=== PATIENT | male | born 1935 | race Caucasian/White ===

== ENCOUNTER → 2017-11-29 16:01 | Outpatient (CLI) | payer MEDICARE, SELFPAY ==
--- NOTE | 2017-11-29 16:03 | DI.RAD.S_ITS ---
PROCEDURE: XR THORACIC SPINE 3V INDICATIONS: BACK PAIN TECHNIQUE: 3 views of the thoracic spine were acquired. COMPARISON: None. FINDINGS: Bones: No fractures or dislocations. No suspicious bony lesions. Levocurvature centered at T5. Diffuse endplate spurring and sclerosis. No definite disc space narrowing. Soft tissues: No paravertebral stripe thickening. 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 Dictated by: Chato Nowak M.D. on 11/29/2017 at 16:30 Approved by: Chato Nowak M.D. on 11/29/2017 at 16:34
== END ==
PROVIDERS: Family Provider Internal Medicine; PCP Internal Medicine; Visit Provider Internal Medicine
DX: M51.84 Other intervertebral disc disorders, thoracic region (principal); M54.9 Dorsalgia, unspecified; M41.9 Scoliosis, unspecified
CPT/HCPCS: 72072

== ENCOUNTER 2018-01-24 13:07 | Outpatient (RCR) | payer MEDICARE, SELFPAY | END 2018-03-25 09:48 | LOC: SP 13:07 | PROVIDERS: Family Provider Internal Medicine; PCP Internal Medicine; Visit Provider Otolaryngology | DX: R49.0 Dysphonia (principal) | CPT/HCPCS: 92524 ==

== ENCOUNTER → 2018-08-25 08:53 | Outpatient (CLI) | payer MEDICARE, SELFPAY ==
[2018-08-25 09:48] LABS: Aspartate Aminotransferase 39 IU/L (17-59); BUN Creatinine Ratio 17.3 (6-22); Blood Urea Nitrogen 19 mg/dL (9-20); Calcium 8.8 mg/dL (8.4-10.2); Carbon Dioxide 28 mmol/L (22-32); Chloride 103 mmol/L (98-107); Cholesterol 146 mg/dL (140-199); Estimated Glomerular Filt Rate > 60.0 mL/min (>60); Glucose 90 mg/dL (80-110); HDL Cholesterol 46 mg/dL (40-60); HEMOLYSIS < 15 (0-50); LDL Cholesterol Calculated 87 mg/dL (<100); Potassium 5.2 mmol/L (3.4-5.1); Sodium 138 mmol/L (137-145); Triglycerides 67 mg/dL (35-150)
[2018-08-25 10:17] LABS: Prostate Specific Antigen 2.52 ng/mL (0.10-4.00)
== END ==
PROVIDERS: Family Provider Internal Medicine; PCP Internal Medicine; Visit Provider Internal Medicine
DX: I10 Essential (primary) hypertension (principal); E78.2 Mixed hyperlipidemia; N40.0 Benign prostatic hyperplasia without lower urinary tract symptoms
CPT/HCPCS: 36415; 80048; 80061; 84153; 84450

== ENCOUNTER → 2018-09-01 08:56 | Outpatient (CLI) | payer MEDICARE, SELFPAY ==
[2018-09-01 11:52] LABS: Thyroid Stimulating Hormone 3.57 uIU/mL (0.47-4.68)
== END ==
PROVIDERS: PCP Internal Medicine; Visit Provider Internal Medicine
DX: E03.9 Hypothyroidism, unspecified (principal)
CPT/HCPCS: 36415; 84443

== ENCOUNTER → 2019-10-11 09:07 | Outpatient (CLI) | payer MEDICARE, SELFPAY ==
[2019-10-11 11:03] LABS: Aspartate Aminotransferase 35 IU/L (17-59); BUN Creatinine Ratio 19.6 (6-22); Blood Urea Nitrogen 21 mg/dL (9-20); Calcium 9.2 mg/dL (8.4-10.2); Carbon Dioxide 27 mmol/L (22-32); Chloride 105 mmol/L (98-107); Cholesterol 146 mg/dL (140-199); Estimated Glomerular Filt Rate > 60.0 mL/min (>60); Glucose 95 mg/dL (80-110); HDL Cholesterol 49 mg/dL (40-60); LDL Cholesterol Calculated 84 mg/dL (<100); Potassium 4.8 mmol/L (3.4-5.1); Sodium 138 mmol/L (137-145); Triglycerides 66 mg/dL (35-150)
[2019-10-11 11:18] LABS: HEMOLYSIS 75 (0-50)
[2019-10-11 11:21] LABS: TSH w/ Reflex to FT4 2.43 uIU/mL (0.47-4.68)
[2019-10-12 07:09] LABS: PSA Free % 32.1 % (.); PSA, Total 1.9 ng/mL (0.0-4.0)
== END ==
PROVIDERS: PCP Internal Medicine; Referring Provider Internal Medicine; Visit Provider Internal Medicine
DX: I10 Essential (primary) hypertension (principal); E78.00 Pure hypercholesterolemia, unspecified; N40.0 Benign prostatic hyperplasia without lower urinary tract symptoms; R42 Dizziness and giddiness; R60.9 Edema, unspecified; E03.9 Hypothyroidism, unspecified
CPT/HCPCS: 36415; 80048; 80061; 84153; 84154; 84443; 84450

== ENCOUNTER → 2019-12-28 19:38 | Outpatient (ROUT) | payer MEDICARE, SELFPAY | PROVIDERS: PCP Internal Medicine; Visit Provider Internal Medicine | DX: M54.9 Dorsalgia, unspecified (principal) | CPT/HCPCS: 87086 ==

== ENCOUNTER → 2020-01-08 13:29 | Outpatient (CLI) | payer MEDICARE, SELFPAY ==
[2020-01-10 17:11] LABS: COVID19 Sendout Not Detected (Not Detect)
== END ==
PROVIDERS: PCP Internal Medicine; Visit Provider Nurse Practitioner
DX: Z11.59 Encounter for screening for other viral diseases (principal)
CPT/HCPCS: 87635

== ENCOUNTER → 2020-06-12 14:33 | Outpatient (ROUT) | payer MEDICARE, SELFPAY ==
[2020-06-12 14:52] LABS: Eosinophils Absolute Auto 200 /uL (0-450); Red Cell Distribution Width 13.7 % (11.6-14.8)
[2020-06-12 14:55] LABS: Alanine Aminotransferase 20 IU/L (<50); Albumin 3.7 g/dL (3.5-5.0); Albumin Globulin Ratio 1.3 (1.0-2.8); Alkaline Phosphatase 56 U/L (38-126); Aspartate Aminotransferase 31 IU/L (17-59); BUN Creatinine Ratio 18.8 (6-22); Bilirubin Total 0.4 mg/dL (0.2-1.3); Blood Urea Nitrogen 21 mg/dL (9-20); Carbon Dioxide 29 mmol/L (22-32); Chloride 105 mmol/L (98-107); Estimated Glomerular Filt Rate > 60.0 mL/min (>60); Globulin 2.8 g/dL (1.7-4.1); Glucose 93 mg/dL (80-110); HEMOLYSIS < 15 (0-50); Potassium 4.5 mmol/L (3.4-5.1); Sodium 136 mmol/L (137-145); Total Protein 6.5 g/dL (6.3-8.2)
[2020-06-12 15:00] LABS: Add Manual Diff / Slide Review NO; Basophils Absolute Auto 0 /uL (0-100); Hematocrit 44.4 % (41-53); Hemoglobin 14.9 g/dL (13.5-17.5); Lymphocytes Absolute Auto 600 /uL (1100-4500); Lymphocytes Percent Auto 13.2 % (25-40); Mean Corpuscular HGB Conc 33.6 % (30-36); Mean Corpuscular Hemoglobin 33.2 PG (26-34); Mean Corpuscular Volume 98.7 fL (80-100); Monocytes Absolute Auto 500 /uL (0-900); Monocytes Percent Auto 11.5 % (3-14); Neutrophils Absolute Auto 3300 /uL (1500-7000); Neutrophils Percent Auto 69.3 % (50-75); Platelet Count 191 X10^3/uL (150-400); White Blood Cell Count 4.8 X10^3/uL (4.5-11.0)
[2020-06-12 15:25] LABS: TSH w/ Reflex to FT4 2.36 uIU/mL (0.47-4.68)
== END ==
PROVIDERS: PCP Internal Medicine; Visit Provider Internal Medicine
DX: R63.4 Abnormal weight loss (principal)
CPT/HCPCS: 80053; 84443; 85025

== ENCOUNTER → 2020-06-13 13:34 | Outpatient (CLI) | payer MEDICARE, SELFPAY ==
--- NOTE | 2020-06-13 | DI.CT.S_ITS ---
PROCEDURE: CT HEAD/BRAIN WO CON INDICATIONS: Balance issues TECHNIQUE: Noncontrast 4.5 mm thick angled axial sections acquired from the foramen magnum to the vertex, with coronal and sagittal reformats. For radiation dose reduction, the following was used: automated exposure control, adjustment of mA and/or kV according to patient size. COMPARISON: None. FINDINGS: Image quality: Excellent. CSF spaces: Basal cisterns are patent. No extra-axial fluid collections. The ventricles are symmetric in size and shape. Brain: No intracranial bleeds or masses. There is cerebral volume loss for age, with resultant ventricular and sulcal prominence. There are periventricular and deep white matter chronic small vessel ischemic changes. There is intracranial internal carotid artery atherosclerosis. Skull and face: Calvarium and visualized facial bones appear intact, without suspicious lesions. Sinuses: Visualized sinuses and mastoids are clear. IMPRESSION: No acute intracranial finding. Dictated by: Loki Russ M.D. on 06/13/2020 at 13:56 Approved by: Loki Russ M.D. on 06/13/2020 at 13:59
== END ==
PROVIDERS: PCP Internal Medicine; Referring Provider Internal Medicine; Visit Provider Internal Medicine
DX: R26.89 Other abnormalities of gait and mobility (principal); F41.8 Other specified anxiety disorders
CPT/HCPCS: 70450

== ENCOUNTER → 2020-07-03 11:26 | Outpatient (CLI) | payer MEDICARE, SELFPAY ==
[2020-07-03] MEDS: COVID-19 VACC, Ad26(JANSSEN)/PF 0.5 ML IM (11:51)
== END ==
PROVIDERS: PCP Internal Medicine; Visit Provider Internal Medicine
DX: Z23 Encounter for immunization (principal)
CPT/HCPCS: 0031A; 91303

== ENCOUNTER 2020-09-27 11:15 | Outpatient (RCR) | payer MEDICARE, SELFPAY ==
--- NOTE | 2020-09-26 12:23 | PT.OIE ---
Current Diagnoses Impacted cerumen, bilateral (09/26/20) Benign paroxysmal vertigo, unspecified ear (09/26/20) Unspecified hearing loss, bilateral (09/26/20) Dysphonia (09/26/20) Visit Care Team Role Provider Type Julio Scott MD Primary Care Provider Physician Specialty: Internal Medicine Address: [address] [place] [id number] Email: [email or web address] Azael Vail MD Attending Provider Physician Referring Provider Specialty: Ear, Nose, Throat Address: [address] [place] [address], [facility] Email: [email or web address] Physical Therapy Initial Evaluation PT-OP-A Visit Information Start: 09/26/20 12:05 Freq: Status: Active Protocol: Document 09/26/20 10:30 DCW (Rec: 09/26/20 12:23 DCW [id number]) Out-Patient Physical Therapy Visit Information Visit Information Visit Type Initial Evaluation Visit Start Time 10:30 Visit Stop Time 11:10 Total Visit Minutes 40 Visit Number 1 Number of FOLDING RULES PRINTING MACHINE OPERATOR Visits 0 Evaluation Information Evaluation Date 09/26/20 PT-OP-B Current Condition Start: 09/26/20 12:05 Freq: Status: Active Protocol: Document 09/26/20 10:30 DCW (Rec: 09/26/20 12:23 DCW [id number]) Current Condition History of Current Condition Onset Date Two months Current Complaints Position-dependent vertigo History of Current Condition Pt is an 84 year old male complaining of a two month history of motion-induced vertigo. Pt reports episodes last a few seconds. Symptoms are provoked by positional changes, especially turning over in bed. Pt was previously assessed by an Mill Attendant at [facility], however he testing was negative at that time. Pt was told to return if his symptoms did, but then he was unable to get back in for an appointment until mid-October , so he requested a new referral to this clinic. Pt denies recent hearing changes, tinnitus, diplopia, dysarthria, discoordination, or decreased mentation/ consciousness. Pt reports symptoms are waxing/waning in nature. Pt denies hx of diabetes, arrhythmia, head trauma, seizure, migraines, back/neck problems, CVA, anxiety/panic disorders, depression, or excessive smoking or drinking. Treatment Goals Patient/Caregiver Goals Eliminate dizziness PT-OP-C Subjective Start: 09/26/20 12:05 Freq: Status: Active Protocol: Document 09/26/20 10:30 DCW (Rec: 09/26/20 12:23 [id number] OP-PT Subjective Patient Comments Patient Comments After coming and going for the last few months, it has been pretty consistent for the last week. PT-OP-O Vestibular Start: 09/26/20 12:05 Freq: Status: Active Protocol: Document 09/26/20 10:30 DCW (Rec: 09/26/20 12:23 DC [id number]) Vestibular Assessment Screening Tests Vestibular Artery Screen Negative Auditory Tests Martinez Test Within normal limits Rinne Test Negative Air Conduction Results Equal Visual Testing Smooth Pursuits Horizontal WNL Smooth Pursuits Vertical WNL Saccades Horizontal WNL Saccades Vertical WNL Gaze Evoked Nystagmus With Fixation Negative Gaze Evoked Nystagmus Without Fixation Negative Heave Test Positive Bilateral Thrust Head Positive Bilateral Positional Testing Baltazar-Hallpike Negative Left,Negative Right Rolling Test Negative Left,Negative Right Supine to Sit Negative Sit to Supine Negative PT-OP-T Assessment and Plan Start: 09/26/20 12:05 Freq: Status: Active Protocol: Document 09/26/20 10:30 DCW (Rec: 09/26/20 12:23 DC [id number]) Physical Therapy Assessment Rehab Potential Rehabilitation Potential Good Evaluation Complexity Number of Personal Factors/Comorbidities 0 Number of Body Systems Impaired 1-2 Clinical Presentation at Evaluation Stable Impairments Impairments Balance,Vestibular Goals One Impairment Pt experiences vertigo with positional changes Sewing Machine Tester Goal (LTG) Pt to perform all bed mobility with no symptoms of vertigo for one week. LTG Duration 10/26/20 Assessment Summary Assessment Pt's vestibular testing entirely negative today, as it was when he was tested at the audiologists previously. Pt's subjective complaints, however, are very strongly suggestive of BPPV, which can be waxing/waning in nature. Pt should benefit from further positional testing at a later time to determine if pt does have active BPPV and, if so, which canal it is located in for treatment, and then CRM as indicated. Pt was educated on BPPV, expectations for treatment, and the possibly of recurrence (BPPV has a ~50% recurrence rate in the five years following treatment) even after successful treatment. Physical Therapy Plan Frequency and Duration Frequency of Treatment 2x/Week Duration of Treatment 6 weeks Plan of Care Start Date 09/26/20 Plan of Care End Date 11/07/20 Therapeutic Interventions Therapeutic Interventions Balance Training,Canalithic Repositioning,Manual Therapy, Neuromuscular Re-education, Vestibular Rehabilitation Next Visit Focus/Plan Next Note Type Treatment Note Next Visit Plan Positional testing, CRM as indicated
--- NOTE | 2020-09-26 12:23 | PT.OPPOC ---
Physical, Occupational & Speech Therapy At [facility] Current Diagnoses Impacted cerumen, bilateral (09/26/20) Benign paroxysmal vertigo, unspecified ear (09/26/20) Unspecified hearing loss, bilateral (09/26/20) Dysphonia (09/26/20) Visit Care Team Role Provider Type Julio Scott MD Primary Care Provider Physician Specialty: Internal Medicine Address: [address] [place] [address], [id number] Email: [email or web address] Azael Vail MD Attending Provider Physician Referring Provider Specialty: Ear, Nose, Throat Address: [address] [place] [address], [id number] Email: [email or web address] Plan Of Care PT-OP-T Assessment and Plan Start: 09/26/20 12:05 Freq: Status: Active Protocol: Document 09/26/20 10:30 DCW (Rec: 09/26/20 12:23 DCW [id number]) Physical Therapy Assessment Rehab Potential Rehabilitation Potential Good Evaluation Complexity Number of Personal Factors/Comorbidities 0 Number of Body Systems Impaired 1-2 Clinical Presentation at Evaluation Stable Impairments Impairments Balance,Vestibular Goals One Impairment Pt experiences vertigo with positional changes Prison Goal (LTG) Pt to perform all bed mobility with no symptoms of vertigo for one week. LTG Duration 10/26/20 Assessment Summary Assessment Pt's vestibular testing entirely negative today, as it was when he was tested at the audiologists previously. Pt's subjective complaints, however, are very strongly suggestive of BPPV, which can be waxing/waning in nature. Pt should benefit from further positional testing at a later time to determine if pt does have active BPPV and, if so, which canal it is located in for treatment, and then CRM as indicated. Pt was educated on BPPV, expectations for treatment, and the possibly of recurrence (BPPV has a ~50% recurrence rate in the five years following treatment) even after successful treatment. Physical Therapy Plan Frequency and Duration Frequency of Treatment 2x/Week Duration of Treatment 6 weeks Plan of Care Start Date 09/26/20 Plan of Care End Date 11/07/20 Therapeutic Interventions Therapeutic Interventions Balance Training,Canalithic Repositioning,Manual Therapy, Neuromuscular Re-education, Vestibular Rehabilitation Next Visit Focus/Plan Next Note Type Treatment Note Next Visit Plan Positional testing, CRM as indicated Plan of Care Dates Plan of Care Start Date 09/26/20 Plan of Care End Date 11/07/20 Electronically Signed by: Jorgito Suárez, PT 09/26/20 [id number] Please Sign and Return: I have reviewed this Plan of Care and certify that the skilled therapy services above are required to meet the patient?s needs. Physician Signature Date Printed Name and Credentials Clinical Instructor Signature Printed Name and Credentials
--- NOTE | 2020-09-27 11:53 | PT.OTN ---
Current Diagnoses Impacted cerumen, bilateral (09/27/20) Benign paroxysmal vertigo, unspecified ear (09/27/20) Unspecified hearing loss, bilateral (09/27/20) Dysphonia (09/27/20) Physical Therapy Treatment Note PT-OP-A Visit Information Start: 09/26/20 12:05 Freq: Status: Active Protocol: Document 09/27/20 11:15 DCW (Rec: 09/27/20 11:47 DCW [id number]) Out-Patient Physical Therapy Visit Information Visit Information Visit Type Treatment Note Visit Start Time 11:15 Visit Stop Time 11:45 Total Visit Minutes 30 Visit Number 2 Number of QUALITY CONTROL ASSISTANT Visits 0 Evaluation Information Evaluation Date 09/26/20 PT-OP-B Current Condition Start: 09/26/20 12:05 Freq: Status: Active Protocol: Document 09/26/20 10:30 DCW (Rec: 09/26/20 12:23 DCW [id number]) Current Condition History of Current Condition Onset Date Two months Current Complaints Position-dependent vertigo History of Current Condition Pt is an 84 year old male complaining of a two month history of motion-induced vertigo. Pt reports episodes last a few seconds. Symptoms are provoked by positional changes, especially turning over in bed. Pt was previously assessed by an Project Control Manager at [facility], however he testing was negative at that time. Pt was told to return if his symptoms did, but then he was unable to get back in for an appointment until mid-October , so he requested a new referral to this clinic. Pt denies recent hearing changes, tinnitus, diplopia, dysarthria, discoordination, or decreased mentation/ consciousness. Pt reports symptoms are waxing/waning in nature. Pt denies hx of diabetes, arrhythmia, head trauma, seizure, migraines, back/neck problems, CVA, anxiety/panic disorders, depression, or excessive smoking or drinking. Treatment Goals Patient/Caregiver Goals Eliminate dizziness PT-OP-C Subjective Start: 09/26/20 12:05 Freq: Status: Active Protocol: Document 09/27/20 11:15 DCW (Rec: 09/27/20 11:47 DCW [id number]) OP-PT Subjective Patient Comments Patient Comments I looked up at some birds as I was walking in today and got a little dizzy, so I might be able to show you something today. PT-OP-O Vestibular Start: 09/26/20 12:05 Freq: Status: Active Protocol: Document 09/27/20 11:15 DCW (Rec: 09/27/20 11:47 DCW [id number]) Vestibular Assessment Positional Testing Baltazar-Hallpike Positive Left,Negative Right, Upbeating,< 60 Seconds PT-OP-Q Treatments Start: 09/26/20 12:05 Freq: Status: Active Protocol: Document 09/27/20 11:15 DCW (Rec: 09/27/20 11:47 DCW [id number]) Manual Therapy Treatment Other Other Manual Treatments Positional testing Canalithic Repositioning BPPV Treatment Kel Affected Canal(s) L Posterior Reps x2 PT-OP-T Assessment and Plan Start: 09/26/20 12:05 Freq: Status: Active Protocol: Document 09/27/20 11:15 DCW (Rec: 09/27/20 11:53 DCW [id number]) Physical Therapy Assessment Impairments Impairments Balance,Vestibular Goals One Impairment Pt experiences vertigo with positional changes Staff Mine Warfare Officer Goal (LTG) Pt to perform all bed mobility with no symptoms of vertigo for one week. LTG Duration 10/26/20 Assessment Summary Assessment During left [place]-Hallpike test, pt complained of vertigo and demonstrated up-beating, torsional nystagmus lasting approximately 15 seconds, consistent with diagnosis of left-sided posterior canal BPPV, canalithiasis-type. Pt was treated with a left-sided modified Kel maneuver. Pt complained of symptoms in the first and third position, which is normally indicative of a successful treatment. Follow-up positional testing was still positive, although significantly reduced. A second modified maneuver was performed. Pt to call for follow-up appointment if symptoms continue. Physical Therapy Plan Frequency and Duration Frequency of Treatment 2x/Week Duration of Treatment 6 weeks Plan of Care Start Date 09/26/20 Plan of Care End Date 11/07/20 Therapeutic Interventions Therapeutic Interventions Balance Training,Canalithic Repositioning,Manual Therapy, Neuromuscular Re-education, Vestibular Rehabilitation Next Visit Focus/Plan Next Note Type Treatment Note Next Visit Plan Positional testing, CRM as indicated
--- NOTE | 2020-11-28 14:03 | PT.OPDS ---
Current Diagnoses Impacted cerumen, bilateral (09/27/20) Benign paroxysmal vertigo, unspecified ear (09/27/20) Unspecified hearing loss, bilateral (09/27/20) Dysphonia (09/27/20) Visit Care Team Role Provider Type Julio Scott MD Primary Care Provider Physician Specialty: Internal Medicine Address: [address] [place] [address] Email: [email or web address] Azael Vail MD Attending Provider Physician Referring Provider Specialty: Ear, Nose, Throat Address: [address] [place] [address], [facility] Email: [email or web address] Visit Number Visit Number 2 Discharge Summary PT-OP-B Current Condition Start: 09/26/20 12:05 Freq: Status: Active Protocol: Document 09/26/20 10:30 DCW (Rec: 09/26/20 12:23 DCW [id number]) Current Condition History of Current Condition Onset Date Two months Current Complaints Position-dependent vertigo History of Current Condition Pt is an 84 year old male complaining of a two month history of motion-induced vertigo. Pt reports episodes last a few seconds. Symptoms are provoked by positional changes, especially turning over in bed. Pt was previously assessed by an Aviation Technician at [facility], however he testing was negative at that time. Pt was told to return if his symptoms did, but then he was unable to get back in for an appointment until mid-October , so he requested a new referral to this clinic. Pt denies recent hearing changes, tinnitus, diplopia, dysarthria, discoordination, or decreased mentation/ consciousness. Pt reports symptoms are waxing/waning in nature. Pt denies hx of diabetes, arrhythmia, head trauma, seizure, migraines, back/neck problems, CVA, anxiety/panic disorders, depression, or excessive smoking or drinking. Treatment Goals Patient/Caregiver Goals Eliminate dizziness PT-OP-C Subjective Start: 09/26/20 12:05 Freq: Status: Active Protocol: Document 09/27/20 11:15 DCW (Rec: 09/27/20 11:47 DCW [id number]) OP-PT Subjective Patient Comments Patient Comments I looked up at some birds as I was walking in today and got a little dizzy, so I might be able to show you something today. PT-OP-O Vestibular Start: 09/26/20 12:05 Freq: Status: Active Protocol: Document 09/27/20 11:15 DCW (Rec: 09/27/20 11:47 DCW [id number]) Vestibular Assessment Positional Testing Baltazar-Hallpike Positive Left,Negative Right, Upbeating,< 60 Seconds PT-OP-T Assessment and Plan Start: 09/26/20 12:05 Freq: Status: Active Protocol: Document 11/28/20 14:03 DCW (Rec: 11/28/20 14:03 DCW [id number]) Physical Therapy Assessment Assessment Summary Assessment Pt instructed to call for follow-up appointment if symptoms returned. Pt has now not been seen in more than two months, will be discharged from skilled therapy at this time. Pt will require a new referral in order to return to therapy. Physical Therapy Plan Discharge Physical Therapy Discharge Reasons No Longer Attending PT Next Visit Focus/Plan Next Note Type Discharge Summary
== END 2020-12-02 09:42 | disposition home or self-care (01) ==
LOC: PHYS 11:15
PROVIDERS: PCP Internal Medicine; Referring Provider Otolaryngology; Visit Provider Otolaryngology
DX: H61.23 Impacted cerumen, bilateral (principal); H81.10 Benign paroxysmal vertigo, unspecified ear; H91.93 Unspecified hearing loss, bilateral; R49.0 Dysphonia
CPT/HCPCS: 95992; 97140; 97161

== ENCOUNTER 2021-02-11 10:00 | Emergency (ER) | payer MEDICARE, SELFPAY ==
[2021-02-11 10:08] VITALS: BP 157/83; PULSE 59; RESP 14; TEMP 36.5; O2SAT 96; BMI 27.1
[2021-02-11 10:19] VITALS: PULSE 64
--- NOTE | 2021-02-11 10:30 | ED.EXTPRO ---
HPI - Extremity Problem General Chief complaint: Extremity Problem,Nontraumatic Stated complaint: Pain in right Leg Time Seen by Provider: 02/11/21 10:19 Source: patient Mode of arrival: Ambulatory Limitations: no limitations History of Present Illness HPI Narrative: Patient is an 85-year-old male here for evaluation of right leg pain and swelling. He is unsure exactly how long the symptoms have been going on but it has been the past couple days. He did not know that his leg was swollen until today. No chest pain. No shortness of breath. Has never had a blood clot in the past. No fevers. He has had some vein stripping on his right leg in the past. Not on anticoagulation. No skin changes. Has not tried anything for symptoms prior to arrival. Related Data Home Medications Medication Instructions Recorded Confirmed ASPIRIN (Aspirin Low Dose) 81 mg PO Q DAY #0 04/24/07 LISINOPRIL (Zestril / Prinivil) 0 PO Q DAY #0 04/24/07 Previous Rx's Medication Instructions Recorded doxycycline hyclate 100 mg capsule 100 mg PO Q12H #20 cap 01/25/17 Allergies Allergy/AdvReac Type Severity Reaction Status Date / Time prednisone [PREDNISONE] Allergy Intermediate BODY ITCH Verified 02/11/21 10:14 Review of Systems Constitutional Constitutional: Denies fever(s) Cardiovascular Cardiovascular: Denies chest pain and Denies dyspnea Respiratory Respiratory: Denies dyspnea Gastrointestinal Gastrointestinal: Denies abdominal pain Musculoskeletal Musculoskeletal: Reports system reviewed and no additional complaints, except as documented and Reports as per HPI Integumentary/Breasts Skin/Breast: Reports system reviewed and no additional complaints, except as documented and Reports as per HPI Neurologic Neurologic: Reports system reviewed and no additional complaints, except as documented Hematologic/Lymphatic On Anticoagulants: No Patient History Medical History Atypical chest pain Diffuse cellulitis of face Social History Smoking Status: Unknown if ever smoked Smoking Status: Unknown if ever smoked alcohol intake frequency: holidays/special occasions only Substance Use Type: does not use Exam Initial Vital Signs Initial Vital Signs: Vital Signs Temperature 97.7 F 02/11/21 10:08 Pulse Rate 59 L 02/11/21 10:08 Respiratory Rate 14 02/11/21 10:08 Blood Pressure 157/83 H 02/11/21 10:08 Pulse Oximetry 96 02/11/21 10:08 Const General: cooperative, healthy appearing and comfortable [facility] Head: normal to inspection and normocephalic Resp Effort & Inspection: normal respiratory effort Cardio Rate: regular rate Pulses: dorsalis pedis present on the right Skin General: no rashes or lesions noted Neuro General: patient awake Sensory Exam: no sensory deficits noted Extrem Other: Right lower extremity is swollen compared to left lower extremity. Right ankle swollen but does have full range of motion. Right knee is unremarkable. Psych Appearance: grossly normal and well kempt Course Orders Ordered: ED Orders 02/11/21 10:31 [facility] venous low extrem rt Stat Basic Metabolic Panel Stat Complete Blood Count AUTO DIFF Stat NT-proBNP (BNP-Adult 18+) Stat Vital Signs Vital signs: Vital Signs - 8 hr 02/11/21 10:08 02/11/21 10:19 Temperature 97.7 F Pulse Rate 59 L Pulse Rate [Right Dorsalis Pedis] 64 Respiratory Rate 14 Blood Pressure 157/83 H Pulse Oximetry 96 MDM - Extremity (Nontraumatic) Lab Data Result diagrams: 02/11/21 10:31 02/11/21 10:31 Labs: Lab Results 02/11/21 02/11/21 Range/Units 10:31 10:31 WBC 6.0 (4.5-11.0) X10^3/uL RBC 4.53 (4.5-5.9) X10^6/uL Hgb 14.7 (13.5-17.5) g/dL Hct 44.1 (41-53) % MCV 97.4 (80-100) fL MCH 32.6 (26-34) PG MCHC 33.4 (30-36) % RDW 13.9 (11.6-14.8) % Plt Count 130 L (150-400) X10^3/uL Neut % (Auto) 69.2 (50-75) % Lymph % (Auto) 12.3 L (25-40) % [place] % (Auto) 13.0 (3-14) % Eos % (Auto) 4.7 H (2-4) % Baso % (Auto) 0.8 (0-2) % Neut # (Auto) 4200 (3987-9200) /uL Lymph # (Auto) 700 L (0140-9935) /uL [place] # (Auto) 800 (0-900) /uL Eos # (Auto) 300 (0-450) /uL Baso # (Auto) 0 (0-100) /uL Sodium 136 L (137-145) mmol/L Potassium 4.9 (3.4-5.1) mmol/L Chloride 105 (98-107) mmol/L Carbon Dioxide 28 (22-32) mmol/L BUN 25 H (9-20) mg/dL Creatinine 1.21 (0.66-1.25) mg/dL Estimated GFR 57.3 L (>60) mL/min BUN/Creatinine Ratio 20.7 (6-22) Glucose 97 (80-110) mg/dL Calcium 8.7 (8.4-10.2) mg/dL NT-Pro-B Natriuret Pep 100 (<450) pg/mL Imaging Data US - DVT: Radiologist's Impression: [address] [address] Ultrasound Report Signed Patient: Parveen Saleh MR#: [id number] : 1935 Acct:[id number] Age/Sex: 85 / M Date of Service: 02/11/21 Loc: ED Accession Number: [id number] ?? Procedure: US periph venous low extrem rt Ordering Provider: Aly Randhawa D.O. PROCEDURE:? US PERIPH VENOUS LOW EXTREM RT ? INDICATIONS:? RULE OUT DEEP VEIN THROMBOSIS ? TECHNIQUE:? Real-time imaging, as well as color and pulse Doppler interrogation, were performed of the lower extremity deep veins from the inguinal ligament to the popliteal fossa.? ? COMPARISON:? [facility] Ultrasound, US, US VENOUS LEG DPLX UNI RT, 02/06/2016, 10:56. ? FINDINGS:? The common femoral, femoral and popliteal veins are normally compressible, and free of intraluminal thrombus.? Color and pulse Doppler demonstrate normal phasic intraluminal flow.? There is normal augmentation response to distal compression maneuver. ? ? Note is made of calf soft tissue edema. ? ? ? IMPRESSION:? ? Negative for deep venous thrombosis. ? ? Dictated by: Myron Hanna M.D. on 02/11/2021 at 10:08 ? ? Approved by: Myron Hanna M.D. on 02/11/2021 at 10:08?? MDM Narrative Medical decision making narrative: Ultrasound shows no signs of a DVT. He is not clinically in heart failure. Labs unremarkable. Kidney functions unremarkable. Low suspicion for fracture. No indication for x-rays. Physical exam is not consistent with cellulitis. Had a discussion with him regarding the symptoms. Unsure the exact etiology but does not appear to be anything that I would change any medications for, at any medications or treatment antibiotics. Will have him contact his primary doctor for a follow-up. He was given return precautions. He expressed understanding and agreement. Discharge Plan Departure Patient Disposition: Home Clinical Impression: Edema of right lower extremity Instructions: Edema (Alternative Therapy), Edema Activity Restrictions/Additional Instructions: Your labs today are very reassuring. The ultrasound did not show any signs of a blood clot. There is also no signs of any infection. I recommend you continue to take all of your medications as directed. Keep your leg elevated. You can use compression stockings like we discussed. Contact your primary doctor for a follow-up. Return to the emergency department for any new or worsening symptoms Prescriptions: No Action ASPIRIN (Aspirin Low Dose) 81 mg PO Q DAY Qty: 0 RF: 0 LISINOPRIL (Zestril / Prinivil) 0 PO Q DAY Qty: 0 RF: 0 doxycycline hyclate 100 MG capsule 100 mg PO Q12H Qty: 20 RF: 0 Referrals: Julio Scott MD [Primary Care Provider] -
--- NOTE | 2021-02-11 10:31 | DI.US.S_ITS ---
PROCEDURE: US PERIPH VENOUS LOW EXTREM RT INDICATIONS: RULE OUT DEEP VEIN THROMBOSIS TECHNIQUE: Real-time imaging, as well as color and pulse Doppler interrogation, were performed of the lower extremity deep veins from the inguinal ligament to the popliteal fossa. COMPARISON: [facility] Ultrasound, US, US VENOUS LEG DPLX UNI RT, 02/06/2016, 10:56. FINDINGS: The common femoral, femoral and popliteal veins are normally compressible, and free of intraluminal thrombus. Color and pulse Doppler demonstrate normal phasic intraluminal flow. There is normal augmentation response to distal compression maneuver. Note is made of calf soft tissue edema. IMPRESSION: Negative for deep venous thrombosis. Dictated by: Myron Hanna M.D. on 02/11/2021 at 10:08 Approved by: Myron Hanna M.D. on 02/11/2021 at 10:08
[2021-02-11 10:55] LABS: Add Manual Diff / Slide Review NO; Basophils Absolute Auto 0 /uL (0-100); Basophils Percent Auto 0.8 % (0-2); Eosinophils Absolute Auto 300 /uL (0-450); Eosinophils Percent Auto 4.7 % (2-4); Hematocrit 44.1 % (41-53); Hemoglobin 14.7 g/dL (13.5-17.5); Lymphocytes Absolute Auto 700 /uL (1100-4500); Lymphocytes Percent Auto 12.3 % (25-40); Mean Corpuscular HGB Conc 33.4 % (30-36); Mean Corpuscular Hemoglobin 32.6 PG (26-34); Mean Corpuscular Volume 97.4 fL (80-100); Monocytes Absolute Auto 800 /uL (0-900); Neutrophils Absolute Auto 4200 /uL (1500-7000); Neutrophils Percent Auto 69.2 % (50-75); Platelet Count 130 X10^3/uL (150-400); Red Blood Cell Count 4.53 X10^6/uL (4.5-5.9); Red Cell Distribution Width 13.9 % (11.6-14.8)
[2021-02-11 11:03] LABS: BUN Creatinine Ratio 20.7 (6-22); Blood Urea Nitrogen 25 mg/dL (9-20); Calcium 8.7 mg/dL (8.4-10.2); Carbon Dioxide 28 mmol/L (22-32); Chloride 105 mmol/L (98-107); Estimated Glomerular Filt Rate 57.3 mL/min (>60); Glucose 97 mg/dL (80-110); HEMOLYSIS 16 (0-50); Potassium 4.9 mmol/L (3.4-5.1); Sodium 136 mmol/L (137-145)
[2021-02-11 11:12] LABS: NT-proBNP (BNP-Adult 18+) 100 pg/mL (<450)
[2021-02-11 11:41] VITALS: BP 160/72; PULSE 57; RESP 18; O2SAT 95
== END 2021-02-11 11:43 | disposition home or self-care (01) ==
PROVIDERS: Emergency Provider Emergency Medicine; PCP Internal Medicine
DX: R60.0 Localized edema (principal); M79.661 Pain in right lower leg
CPT/HCPCS: 80048; 83880; 85025; 93971; 99281; 99284

== ENCOUNTER 2021-05-22 09:00 | Outpatient (RCR) | payer MEDICARE, SELFPAY ==
--- NOTE | 2021-04-01 15:09 | PT.OIE ---
Current Diagnoses Pain in right knee (04/01/21) Past Medical History (Last Reviewed 02/11/21 @ 10:37 by Aly Randhawa DO) Atypical chest pain Diffuse cellulitis of face Visit Care Team Role Provider Type Julio Scott MD Attending Provider Physician Family Provider Primary Care Provider Referring Provider Specialty: Internal Medicine Address: [address] [place] [address], [id number] Email: [email or web address] Initial Evaluation PT-OP-A Visit Information Start: 03/28/21 15:02 Freq: Status: Active Protocol: Document 04/01/21 10:30 AMB (Rec: 04/01/21 15:44 AMB [email or web address]) Out-Patient Physical Therapy Visit Information Visit Information Visit Type Initial Evaluation Visit Start Time 10:30 Visit Stop Time 11:15 Total Visit Minutes 45 Visit Number 1 PT-OP-B Current Condition Start: 03/28/21 15:02 Freq: Status: Active Protocol: Document 04/01/21 10:30 AMB (Rec: 04/01/21 10:40 AMB [id number]) Current Condition History of Current Condition Onset Date 2 months Current Complaints R knee pain History of Current Condition 2 months ago, medial right knee pain started insidiously. Walking, stairs, standing, sitting with knee bent, rolling over in bed all increase pain. Dull ache in the medial knee, twisting or turning will make the pain sharp. Denies locking. In the last 2 months I've been off my feet feels like that is making the legs weak. Used to walk 5x/week 1.5 miles on flat terrain. Immediately hurts if tries to walk. Walking and rolling over in bed seem to be the worst. Treatment Goals Patient/Caregiver Goals Return to walking without pain Prior Functional Status Baseline Function- ADL's Independent Baseline Function- Mobility Independent Personal Factors Other Personal Factors That May Effect Depression, hypothyroid, hx Therapy/Recovery back pain, arthritis PT-OP-C Subjective Start: 03/28/21 15:02 Freq: Status: Active Protocol: Document 04/01/21 10:30 AMB (Rec: 04/02/21 14:47 AMB [email or web address]) Patient Questionnaires Lower Extremity Functional Scale LEFS Score 56 LEFS Impairment 20 to 39% Impaired (Score 48- 62) OP-PT Pain Assessment Comments Pain Comments 4/10 pain in medial right knee PT-OP-J Posture/Palpation/Skin Start: 03/28/21 15:02 Freq: Status: Active Protocol: Document 04/01/21 10:30 AMB (Rec: 04/02/21 14:47 AMB [email or web address]) Palpation Assessment Location One Palpation Details Tenderness and mild non pitting swelling at medial knee, no pain with patellar mobility testing PT-OP-K Range of Motion Start: 03/28/21 15:02 Freq: Status: Active Protocol: Document 04/01/21 10:30 AMB (Rec: 04/02/21 14:47 AMB [email or web address]) Knee Goniometric Range of Motion Knee Right Knee ROM WFL Yes Patient Position Supine PT-OP-L Special Tests Start: 03/28/21 15:02 Freq: Status: Active Protocol: Document 04/01/21 10:30 AMB (Rec: 04/02/21 14:53 AMB [email or web address]) Special Tests Knee Special Tests Lateral Pivot Shift Test Results - Nabila Test Test Results - Carr's Compression Test Results - PT-OP-M Strength Start: 03/28/21 15:02 Freq: Status: Active Protocol: Document 04/01/21 10:30 AMB (Rec: 04/02/21 14:47 AMB [email or web address]) Hip Strength Hip Manual Muscle Testing Left Flexion (L2) 4+ Good+ Extension (S1) 4+ Good+ Abduction 4+ Good+ Adduction 4+ Good+ Right Flexion (L2) 4 Good Extension (S1) 4 Good Abduction 4 Good Adduction 4 Good Knee Strength Knee Manual Muscle Testing Right Flexion (S2) 5 Normal Extension (L3) 4 Good Left Flexion (S2) 5 Normal Extension (L3) 5 Normal PT-OP-Q Treatments Start: 03/28/21 15:02 Freq: Status: Active Protocol: Document 04/01/21 10:30 AMB (Rec: 04/02/21 15:08 AMB [email or web address]) Therapeutic Exercises Supine Exercises 2 Supine Exercise Name adductor squeeze Reps/Minutes 10 1 Supine Exercise Name SLR Reps/Minutes 10 PT-OP-T Assessment and Plan Start: 03/28/21 15:02 Freq: Status: Active Protocol: Document 04/01/21 10:30 AMB (Rec: 04/02/21 15:08 AMB [email or web address]) Physical Therapy Assessment Rehab Potential Rehabilitation Potential Good Evaluation Complexity Number of Personal Factors/Comorbidities 1-2 Number of Body Systems Impaired 1-2 Clinical Presentation at Evaluation Stable Impairments Impairments Gait,Pain,Strength Goals Two Impairment Pain Short Term Goal (STG) Praveen will roll over in bed without knee pain. STG Duration 5 weeks Detention Goal (LTG) Parveen will walk 1/2 mile without knee pain. LTG Duration 10 weeks One Impairment Strength Short Term Goal (STG) Parveen will improve his quad strength so that he can perform a straight leg raise without quad lag. STG Duration 5 weeks Detention Goal (LTG) Parveen will be independent and consistent with a strengthening home exercise program. LTG Duration 10 weeks Assessment Summary Assessment Parveen attends physical therapy with medial knee pain that has persisted despite rest, and now the patient feels increased weakness in his lower extremities due to resting. Considering his age, his range of motion is well intact, but he does have quad leg with terminal knee extension on the right and not on the left. Challenging to know if this is due to the rest or was present before his pain and contributed to the initiation of the pain. Pt would benefit from knee stabilization and careful progression to return to his previous walking routine without flaring his medial knee pain. Physical Therapy Plan Frequency and Duration Frequency of Treatment 2x/Week Duration of Treatment 10 weeks Plan of Care Start Date 04/01/21 Plan of Care End Date 06/10/21 Therapeutic Interventions Therapeutic Interventions Gait Training,Home Exercise Program,Manual Therapy, Neuromuscular Re-education, Self-Care/Home Management, Therapeutic Activities, Therapeutic Exercises Modalities Cold Pack/Ice Massage,Electric Stimulation,Hot Packs Next Visit Focus/Plan Next Note Type Treatment Note Next Visit Plan Review adductor squeeze and SLR, start cardio progression squat training vs leg press
--- NOTE | 2021-04-01 15:09 | PT.OPPOC ---
Physical, Occupational & Speech Therapy At [facility] Current Diagnoses Pain in right knee (04/01/21) Visit Care Team Role Provider Type Julio Scott MD Attending Provider Physician Family Provider Primary Care Provider Referring Provider Specialty: Internal Medicine Address: [address] [place] [address], [id number] Email: [email or web address] Plan Of Care PT-OP-T Assessment and Plan Start: 03/28/21 15:02 Freq: Status: Active Protocol: Document 04/01/21 10:30 AMB (Rec: 04/02/21 15:08 AMB [email or web address]) Physical Therapy Assessment Rehab Potential Rehabilitation Potential Good Evaluation Complexity Number of Personal Factors/Comorbidities 1-2 Number of Body Systems Impaired 1-2 Clinical Presentation at Evaluation Stable Impairments Impairments Gait,Pain,Strength Goals Two Impairment Pain Short Term Goal (STG) Parveen will roll over in bed without knee pain. STG Duration 5 weeks Residential Goal (LTG) Parveen will walk 1/2 mile without knee pain. LTG Duration 10 weeks One Impairment Strength Short Term Goal (STG) Parveen will improve his quad strength so that he can perform a straight leg raise without quad lag. STG Duration 5 weeks Buggy Ladle Tender Goal (LTG) Parveen will be independent and consistent with a strengthening home exercise program. LTG Duration 10 weeks Assessment Summary Assessment Parveen attends physical therapy with medial knee pain that has persisted despite rest, and now the patient feels increased weakness in his lower extremities due to resting. Considering his age, his range of motion is well intact, but he does have quad leg with terminal knee extension on the right and not on the left. Challenging to know if this is due to the rest or was present before his pain and contributed to the initiation of the pain. Pt would benefit from knee stabilization and careful progression to return to his previous walking routine without flaring his medial knee pain. Physical Therapy Plan Frequency and Duration Frequency of Treatment 2x/Week Duration of Treatment 10 weeks Plan of Care Start Date 04/01/21 Plan of Care End Date 06/10/21 Therapeutic Interventions Therapeutic Interventions Gait Training,Home Exercise Program,Manual Therapy, Neuromuscular Re-education, Self-Care/Home Management, Therapeutic Activities, Therapeutic Exercises Modalities Cold Pack/Ice Massage,Electric Stimulation,Hot Packs Next Visit Focus/Plan Next Note Type Treatment Note Next Visit Plan Review adductor squeeze and SLR, start cardio progression squat training vs leg press Plan of Care Dates Plan of Care Start Date 04/01/21 Plan of Care End Date 06/10/21 Electronically Signed by: Selena Chinchilla, PT 04/02/21 [id number] Please Sign and Return: I have reviewed this Plan of Care and certify that the skilled therapy services above are required to meet the patient?s needs. Physician Signature Date Printed Name and Credentials Clinical Instructor Signature Printed Name and Credentials
--- NOTE | 2021-04-03 16:04 | PT.OTN ---
Current Diagnoses Pain in right knee (04/03/21) Physical Therapy Treatment Note PT-OP-A Visit Information Start: 03/28/21 15:02 Freq: Status: Active Protocol: Document 04/03/21 09:45 AMB (Rec: 04/03/21 10:33 AMB [id number]) Out-Patient Physical Therapy Visit Information Visit Information Visit Type Treatment Note Visit Start Time 09:45 Visit Stop Time 10:30 Total Visit Minutes 45 Visit Number 2 PT-OP-B Current Condition Start: 03/28/21 15:02 Freq: Status: Active Protocol: Document 04/01/21 10:30 AMB (Rec: 04/01/21 10:40 AMB [id number]) Current Condition History of Current Condition Onset Date 2 months Current Complaints R knee pain History of Current Condition 2 months ago, medial right knee pain started insidiously. Walking, stairs, standing, sitting with knee bent, rolling over in bed all increase pain. Dull ache in the medial knee, twisting or turning will make the pain sharp. Denies locking. In the last 2 months I've been off my feet feels like that is making the legs weak. Used to walk 5x/week 1.5 miles on flat terrain. Immediately hurts if tries to walk. Walking and rolling over in bed seem to be the worst. Treatment Goals Patient/Caregiver Goals Return to walking without pain Prior Functional Status Baseline Function- ADL's Independent Baseline Function- Mobility Independent Personal Factors Other Personal Factors That May Effect Depression, hypothyroid, hx Therapy/Recovery back pain, arthritis PT-OP-C Subjective Start: 03/28/21 15:02 Freq: Status: Active Protocol: Document 04/03/21 09:00 AMB (Rec: 04/03/21 13:45 AMB [email or web address]) OP-PT Subjective Patient Comments Patient Comments Parveen did not have increased pain with his exercises, considering going on short walks. PT-OP-J Posture/Palpation/Skin Start: 03/28/21 15:02 Freq: Status: Active Protocol: Document 04/01/21 10:30 AMB (Rec: 04/02/21 14:47 AMB [email or web address]) Palpation Assessment Location One Palpation Details Tenderness and mild non pitting swelling at medial knee, no pain with patellar mobility testing PT-OP-K Range of Motion Start: 03/28/21 15:02 Freq: Status: Active Protocol: Document 04/01/21 10:30 AMB (Rec: 04/02/21 14:47 AMB [email or web address]) Knee Goniometric Range of Motion Knee Right Knee ROM WFL Yes Patient Position Supine PT-OP-L Special Tests Start: 03/28/21 15:02 Freq: Status: Active Protocol: Document 04/01/21 10:30 AMB (Rec: 04/02/21 14:53 AMB [email or web address]) Special Tests Knee Special Tests Lateral Pivot Shift Test Results - Nabila Test Test Results - Carr's Compression Test Results - PT-OP-M Strength Start: 03/28/21 15:02 Freq: Status: Active Protocol: Document 04/01/21 10:30 AMB (Rec: 04/02/21 14:47 AMB [email or web address]) Hip Strength Hip Manual Muscle Testing Left Flexion (L2) 4+ Good+ Extension (S1) 4+ Good+ Abduction 4+ Good+ Adduction 4+ Good+ Right Flexion (L2) 4 Good Extension (S1) 4 Good Abduction 4 Good Adduction 4 Good Knee Strength Knee Manual Muscle Testing Right Flexion (S2) 5 Normal Extension (L3) 4 Good Left Flexion (S2) 5 Normal Extension (L3) 5 Normal PT-OP-Q Treatments Start: 03/28/21 15:02 Freq: Status: Active Protocol: Document 04/03/21 09:45 AMB (Rec: 04/03/21 16:02 AMB [email or web address]) Cardio Equipment Recumbent Bicycle Duration (Minutes) 10 Resistance 6 Therapeutic Exercises Supine Exercises 3 Supine Exercise Name Terminal knee extension Resistance 4# Reps/Minutes 2x10 1 Supine Exercise Name SLR Reps/Minutes 10 Standing Exercises 4 Standing Exercise Name mini squat Reps/Minutes 10 3 Standing Exercise Name hip add Resistance #2 t band Reps/Minutes 10 2 Standing Exercise Name hip abd Resistance #2 t band Reps/Minutes 10 1 Standing Exercise Name hip ext Resistance #2 t band Reps/Minutes 10 Manual Therapy Treatment Soft Tissue Mobilization 1 Body Location adductors and calf Intensity/Depth Moderate Comments medial PT-OP-T Assessment and Plan Start: 03/28/21 15:02 Freq: Status: Active Protocol: Document 04/03/21 09:00 AMB (Rec: 04/03/21 13:45 AMB [email or web address]) Physical Therapy Assessment Assessment Summary Assessment Parveen's pain increased from 3/ 10 to 4/10 with exercise. Encouraged to ice if necessary . Pt has good ROM, but continued medial pain, some light clicking over patella but was not painful. Physical Therapy Plan Next Visit Focus/Plan Next Note Type Treatment Note Next Visit Plan Review standing t band, consider leg press
--- NOTE | 2021-04-08 16:06 | PT.OTN ---
Current Diagnoses Pain in right knee (04/08/21) Physical Therapy Treatment Note PT-OP-A Visit Information Start: 03/28/21 15:02 Freq: Status: Active Protocol: Document 04/08/21 10:30 AMB (Rec: 04/08/21 11:19 AMB [id number]) Out-Patient Physical Therapy Visit Information Visit Information Visit Type Treatment Note Visit Start Time 10:30 Visit Stop Time 11:15 Total Visit Minutes 45 Visit Number 3 PT-OP-B Current Condition Start: 03/28/21 15:02 Freq: Status: Active Protocol: Document 04/01/21 10:30 AMB (Rec: 04/01/21 10:40 AMB [id number]) Current Condition History of Current Condition Onset Date 2 months Current Complaints R knee pain History of Current Condition 2 months ago, medial right knee pain started insidiously. Walking, stairs, standing, sitting with knee bent, rolling over in bed all increase pain. Dull ache in the medial knee, twisting or turning will make the pain sharp. Denies locking. In the last 2 months I've been off my feet feels like that is making the legs weak. Used to walk 5x/week 1.5 miles on flat terrain. Immediately hurts if tries to walk. Walking and rolling over in bed seem to be the worst. Treatment Goals Patient/Caregiver Goals Return to walking without pain Prior Functional Status Baseline Function- ADL's Independent Baseline Function- Mobility Independent Personal Factors Other Personal Factors That May Effect Depression, hypothyroid, hx Therapy/Recovery back pain, arthritis PT-OP-C Subjective Start: 03/28/21 15:02 Freq: Status: Active Protocol: Document 04/08/21 10:30 AMB (Rec: 04/08/21 11:19 AMB [id number]) OP-PT Subjective Patient Comments Patient Comments Went on 3/4mile walk and was ready to be done with PT-OP-J Posture/Palpation/Skin Start: 03/28/21 15:02 Freq: Status: Active Protocol: Document 04/01/21 10:30 AMB (Rec: 04/02/21 14:47 AMB [email or web address]) Palpation Assessment Location One Palpation Details Tenderness and mild non pitting swelling at medial knee, no pain with patellar mobility testing PT-OP-K Range of Motion Start: 03/28/21 15:02 Freq: Status: Active Protocol: Document 04/01/21 10:30 AMB (Rec: 04/02/21 14:47 AMB [email or web address]) Knee Goniometric Range of Motion Knee Right Knee ROM WFL Yes Patient Position Supine PT-OP-L Special Tests Start: 03/28/21 15:02 Freq: Status: Active Protocol: Document 04/01/21 10:30 AMB (Rec: 04/02/21 14:53 AMB [email or web address]) Special Tests Knee Special Tests Lateral Pivot Shift Test Results - Nabila Test Test Results - Carr's Compression Test Results - PT-OP-M Strength Start: 03/28/21 15:02 Freq: Status: Active Protocol: Document 04/01/21 10:30 AMB (Rec: 04/02/21 14:47 AMB [email or web address]) Hip Strength Hip Manual Muscle Testing Left Flexion (L2) 4+ Good+ Extension (S1) 4+ Good+ Abduction 4+ Good+ Adduction 4+ Good+ Right Flexion (L2) 4 Good Extension (S1) 4 Good Abduction 4 Good Adduction 4 Good Knee Strength Knee Manual Muscle Testing Right Flexion (S2) 5 Normal Extension (L3) 4 Good Left Flexion (S2) 5 Normal Extension (L3) 5 Normal PT-OP-Q Treatments Start: 03/28/21 15:02 Freq: Status: Active Protocol: Document 04/08/21 10:30 AMB (Rec: 04/08/21 11:19 AMB [id number]) Cardio Equipment Recumbent Bicycle Duration (Minutes) 10 Resistance 6 Gym Equipment Shuttle Recovery Unilateral Squats Resistance 37 Bilateral Squats Resistance 75 Therapeutic Exercises Supine Exercises 1 Supine Exercise Name SLR Reps/Minutes 10 Sidelying Exercises 2 Sidelying Exercise Name hip add Comments increased pain-unable 1 Sidelying Exercise Name clamshell Reps/Minutes 2x10 Standing Exercises 4 Standing Exercise Name mini squat Reps/Minutes 10 PT-OP-T Assessment and Plan Start: 03/28/21 15:02 Freq: Status: Active Protocol: Document 04/08/21 10:30 AMB (Rec: 04/08/21 11:19 AMB [id number]) Physical Therapy Assessment Goals Two Impairment Pain Short Term Goal (STG) Parveen will roll over in bed without knee pain. STG Duration 5 weeks Director Of Catering Goal (LTG) Parveen will walk 1/2 mile without knee pain. LTG Duration 10 weeks One Impairment Strength Short Term Goal (STG) Parveen will improve his quad strength so that he can perform a straight leg raise without quad lag. STG Duration 5 weeks Halfway Goal (LTG) Parveen will be independent and consistent with a strengthening home exercise program. LTG Duration 10 weeks Assessment Summary Assessment Pt denies any swelling, rolling over in bed continues to be the most painful. Physical Therapy Plan Next Visit Focus/Plan Next Note Type Treatment Note Next Visit Plan Review standing t band, consider leg press
--- NOTE | 2021-04-29 11:25 | PT.OTN ---
Current Diagnoses Pain in right knee (04/29/21) Physical Therapy Treatment Note PT-OP-A Visit Information Start: 03/28/21 15:02 Freq: Status: Active Protocol: Document 04/29/21 09:04 AMB (Rec: 04/29/21 09:48 AMB [id number]) Out-Patient Physical Therapy Visit Information Visit Information Visit Type Treatment Note Visit Start Time 09:00 Visit Stop Time 09:45 Total Visit Minutes 45 Visit Number 4 PT-OP-B Current Condition Start: 03/28/21 15:02 Freq: Status: Active Protocol: Document 04/01/21 10:30 AMB (Rec: 04/01/21 10:40 AMB [id number]) Current Condition History of Current Condition Onset Date 2 months Current Complaints R knee pain History of Current Condition 2 months ago, medial right knee pain started insidiously. Walking, stairs, standing, sitting with knee bent, rolling over in bed all increase pain. Dull ache in the medial knee, twisting or turning will make the pain sharp. Denies locking. In the last 2 months I've been off my feet feels like that is making the legs weak. Used to walk 5x/week 1.5 miles on flat terrain. Immediately hurts if tries to walk. Walking and rolling over in bed seem to be the worst. Treatment Goals Patient/Caregiver Goals Return to walking without pain Prior Functional Status Baseline Function- ADL's Independent Baseline Function- Mobility Independent Personal Factors Other Personal Factors That May Effect Depression, hypothyroid, hx Therapy/Recovery back pain, arthritis PT-OP-C Subjective Start: 03/28/21 15:02 Freq: Status: Active Protocol: Document 04/29/21 09:04 AMB (Rec: 04/29/21 09:48 AMB [id number]) OP-PT Subjective Patient Comments Patient Comments Returns from trip to [place], walking through airport was ok . PT-OP-J Posture/Palpation/Skin Start: 03/28/21 15:02 Freq: Status: Active Protocol: Document 04/01/21 10:30 AMB (Rec: 04/02/21 14:47 AMB [email or web address]) Palpation Assessment Location One Palpation Details Tenderness and mild non pitting swelling at medial knee, no pain with patellar mobility testing PT-OP-K Range of Motion Start: 03/28/21 15:02 Freq: Status: Active Protocol: Document 04/01/21 10:30 AMB (Rec: 04/02/21 14:47 AMB [email or web address]) Knee Goniometric Range of Motion Knee Right Knee ROM WFL Yes Patient Position Supine PT-OP-L Special Tests Start: 03/28/21 15:02 Freq: Status: Active Protocol: Document 04/01/21 10:30 AMB (Rec: 04/02/21 14:53 AMB [email or web address]) Special Tests Knee Special Tests Lateral Pivot Shift Test Results - Nabila Test Test Results - Carr's Compression Test Results - PT-OP-M Strength Start: 03/28/21 15:02 Freq: Status: Active Protocol: Document 04/01/21 10:30 AMB (Rec: 04/02/21 14:47 AMB [email or web address]) Hip Strength Hip Manual Muscle Testing Left Flexion (L2) 4+ Good+ Extension (S1) 4+ Good+ Abduction 4+ Good+ Adduction 4+ Good+ Right Flexion (L2) 4 Good Extension (S1) 4 Good Abduction 4 Good Adduction 4 Good Knee Strength Knee Manual Muscle Testing Right Flexion (S2) 5 Normal Extension (L3) 4 Good Left Flexion (S2) 5 Normal Extension (L3) 5 Normal PT-OP-Q Treatments Start: 03/28/21 15:02 Freq: Status: Active Protocol: Document 04/29/21 09:04 AMB (Rec: 04/29/21 09:48 AMB [id number]) Cardio Equipment Recumbent Bicycle Duration (Minutes) 10 Resistance 9 Gym Equipment Shuttle Recovery Bilateral Squats Resistance 75 Reps/Time 3x10 Therapeutic Exercises Sidelying Exercises 3 Sidelying Exercise Name IT Band stretch Reps/Minutes 30x2 1 Sidelying Exercise Name clamshell Reps/Minutes 2x10 Standing Exercises 1 Standing Exercise Name calf stretch Reps/Minutes 30x4 Comments on stair PT-OP-T Assessment and Plan Start: 03/28/21 15:02 Freq: Status: Active Protocol: Document 04/29/21 09:04 AMB (Rec: 04/29/21 09:48 AMB [id number]) Physical Therapy Assessment Goals Two Impairment Pain Short Term Goal (STG) Parveen will roll over in bed without knee pain. STG Duration 5 weeks Diet Aid Goal (LTG) Parveen will walk 1/2 mile without knee pain. LTG Duration 10 weeks One Impairment Strength Short Term Goal (STG) Parveen will improve his quad strength so that he can perform a straight leg raise without quad lag. STG Duration 5 weeks Diet Aid Goal (LTG) Parveen will be independent and consistent with a strengthening home exercise program. LTG Duration 10 weeks Assessment Summary Assessment Pt reports lateral hip pain with medial knee pain which is fairly new. Ache is all the time. Was quite sensitive at IT band and calf. Physical Therapy Plan Next Visit Focus/Plan Next Note Type Treatment Note Next Visit Plan Continue to look at IT band and calf's role in medial knee pain
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
--- NOTE | 2021-05-05 10:15 | PT.OTN ---
Current Diagnoses Pain in right knee (05/05/21) Physical Therapy Treatment Note PT-OP-A Visit Information Start: 03/28/21 15:02 Freq: Status: Active Protocol: Document 05/05/21 09:26 MA (Rec: 05/05/21 10:15 MA [id number]) Out-Patient Physical Therapy Visit Information Visit Information Visit Type Treatment Note Visit Start Time 09:30 Visit Stop Time 10:11 Total Visit Minutes 41 Visit Number 5 Number of EVICTION SPECIALIST Visits 1 PT-OP-B Current Condition Start: 03/28/21 15:02 Freq: Status: Active Protocol: Document 04/01/21 10:30 AMB (Rec: 04/01/21 10:40 AMB [id number]) Current Condition History of Current Condition Onset Date 2 months Current Complaints R knee pain History of Current Condition 2 months ago, medial right knee pain started insidiously. Walking, stairs, standing, sitting with knee bent, rolling over in bed all increase pain. Dull ache in the medial knee, twisting or turning will make the pain sharp. Denies locking. In the last 2 months I've been off my feet feels like that is making the legs weak. Used to walk 5x/week 1.5 miles on flat terrain. Immediately hurts if tries to walk. Walking and rolling over in bed seem to be the worst. Treatment Goals Patient/Caregiver Goals Return to walking without pain Prior Functional Status Baseline Function- ADL's Independent Baseline Function- Mobility Independent Personal Factors Other Personal Factors That May Effect Depression, hypothyroid, hx Therapy/Recovery back pain, arthritis PT-OP-C Subjective Start: 03/28/21 15:02 Freq: Status: Active Protocol: Document 05/05/21 09:26 MA (Rec: 05/05/21 10:15 MA [id number]) OP-PT Subjective Patient Comments Patient Comments Pt has not done his HEP but walked .5 miles with his yesterday. He states my knee felt fine after. PT-OP-J Posture/Palpation/Skin Start: 03/28/21 15:02 Freq: Status: Active Protocol: Document 04/01/21 10:30 AMB (Rec: 04/02/21 14:47 AMB [email or web address]) Palpation Assessment Location One Palpation Details Tenderness and mild non pitting swelling at medial knee, no pain with patellar mobility testing PT-OP-K Range of Motion Start: 03/28/21 15:02 Freq: Status: Active Protocol: Document 04/01/21 10:30 AMB (Rec: 04/02/21 14:47 AMB [email or web address]) Knee Goniometric Range of Motion Knee Right Knee ROM WFL Yes Patient Position Supine PT-OP-L Special Tests Start: 03/28/21 15:02 Freq: Status: Active Protocol: Document 04/01/21 10:30 AMB (Rec: 04/02/21 14:53 AMB [email or web address]) Special Tests Knee Special Tests Lateral Pivot Shift Test Results - Nabila Test Test Results - Carr's Compression Test Results - PT-OP-M Strength Start: 03/28/21 15:02 Freq: Status: Active Protocol: Document 04/01/21 10:30 AMB (Rec: 04/02/21 14:47 AMB [email or web address]) Hip Strength Hip Manual Muscle Testing Left Flexion (L2) 4+ Good+ Extension (S1) 4+ Good+ Abduction 4+ Good+ Adduction 4+ Good+ Right Flexion (L2) 4 Good Extension (S1) 4 Good Abduction 4 Good Adduction 4 Good Knee Strength Knee Manual Muscle Testing Right Flexion (S2) 5 Normal Extension (L3) 4 Good Left Flexion (S2) 5 Normal Extension (L3) 5 Normal PT-OP-Q Treatments Start: 03/28/21 15:02 Freq: Status: Active Protocol: Document 05/05/21 09:26 MA (Rec: 05/05/21 10:15 MA [id number]) Cardio Equipment Recumbent Bicycle Duration (Minutes) 10 Resistance 9 Seat Position 4 Therapeutic Exercises Sidelying Exercises 1 Sidelying Exercise Name clamshell Reps/Minutes 2x10 Standing Exercises 5 Standing Exercise Name Hip extension Side bilateral Resistance lvl 2 TB Reps/Minutes 2x10 4 Standing Exercise Name mini squat- Sit<>stands from chair today Reps/Minutes x5 3 Standing Exercise Name hip add Resistance #2 t band Reps/Minutes 2x10 2 Standing Exercise Name hip abd Resistance #2 t band Reps/Minutes 2x10 1 Standing Exercise Name 1. calf stretch on stair 2. staggered stance gastroc stretch Reps/Minutes 30x4 Comments added to HEP Manual Therapy Treatment Soft Tissue Mobilization 1 Body Location adductors and medial calf and IT band Intensity/Depth Moderate Comments medial PT-OP-T Assessment and Plan Start: 03/28/21 15:02 Freq: Status: Active Protocol: Document 05/05/21 09:26 MA (Rec: 05/05/21 10:15 MA [id number]) Physical Therapy Assessment Goals Two Impairment Pain Short Term Goal (STG) Parveen will roll over in bed without knee pain. STG Duration 5 weeks Software Analyst Goal (LTG) Parveen will walk 1/2 mile without knee pain. LTG Duration 10 weeks One Impairment Strength Short Term Goal (STG) Parveen will improve his quad strength so that he can perform a straight leg raise without quad lag. STG Duration 5 weeks [facility]pc Goal (LTG) Parveen will be independent and consistent with a strengthening home exercise program. LTG Duration 10 weeks Assessment Summary Assessment Pt feels STM last session helped with his knee pain. He is not tender during STM today along ITB but continues to have some soreness along medial gastroc. Added in calf stretch either on stair or in staggered stance to HEP and provided pt with printed copy of exercises. Reviewed prior HEP with pt requiring cues for posture during all standing exercises. Physical Therapy Plan Frequency and Duration Frequency of Treatment 2x/Week Duration of Treatment 10 weeks Plan of Care Start Date 04/01/21 Plan of Care End Date 06/10/21 Therapeutic Interventions Therapeutic Interventions Gait Training,Home Exercise Program,Manual Therapy, Neuromuscular Re-education, Self-Care/Home Management, Therapeutic Activities, Therapeutic Exercises Modalities Cold Pack/Ice Massage,Electric Stimulation,Hot Packs Next Visit Focus/Plan Next Note Type Treatment Note Next Visit Plan Continue to look at IT band and calf's role in medial knee pain, review calf stretches added to HEP
--- NOTE | 2021-05-08 12:54 | PT.OTN ---
Current Diagnoses Pain in right knee (05/08/21) Physical Therapy Treatment Note PT-OP-A Visit Information Start: 03/28/21 15:02 Freq: Status: Active Protocol: Document 05/08/21 09:00 AMB (Rec: 05/08/21 09:49 AMB [id number]) Out-Patient Physical Therapy Visit Information Visit Information Visit Type Treatment Note Visit Start Time 09:00 Visit Stop Time 09:45 Total Visit Minutes 45 Visit Number 6 PT-OP-B Current Condition Start: 03/28/21 15:02 Freq: Status: Active Protocol: Document 04/01/21 10:30 AMB (Rec: 04/01/21 10:40 AMB [id number]) Current Condition History of Current Condition Onset Date 2 months Current Complaints R knee pain History of Current Condition 2 months ago, medial right knee pain started insidiously. Walking, stairs, standing, sitting with knee bent, rolling over in bed all increase pain. Dull ache in the medial knee, twisting or turning will make the pain sharp. Denies locking. In the last 2 months I've been off my feet feels like that is making the legs weak. Used to walk 5x/week 1.5 miles on flat terrain. Immediately hurts if tries to walk. Walking and rolling over in bed seem to be the worst. Treatment Goals Patient/Caregiver Goals Return to walking without pain Prior Functional Status Baseline Function- ADL's Independent Baseline Function- Mobility Independent Personal Factors Other Personal Factors That May Effect Depression, hypothyroid, hx Therapy/Recovery back pain, arthritis PT-OP-C Subjective Start: 03/28/21 15:02 Freq: Status: Active Protocol: Document 05/08/21 09:00 AMB (Rec: 05/08/21 12:51 AMB [id number]) OP-PT Subjective Patient Comments Patient Comments Parveen thinks he is getting better slowly. Hip hasn't been as much of an issue, manual on calf felt good last time. Rolling over in bed continues to be bothersome. PT-OP-J Posture/Palpation/Skin Start: 03/28/21 15:02 Freq: Status: Active Protocol: Document 04/01/21 10:30 AMB (Rec: 04/02/21 14:47 AMB [email or web address]) Palpation Assessment Location One Palpation Details Tenderness and mild non pitting swelling at medial knee, no pain with patellar mobility testing PT-OP-K Range of Motion Start: 03/28/21 15:02 Freq: Status: Active Protocol: Document 04/01/21 10:30 AMB (Rec: 04/02/21 14:47 AMB [email or web address]) Knee Goniometric Range of Motion Knee Right Knee ROM WFL Yes Patient Position Supine PT-OP-L Special Tests Start: 03/28/21 15:02 Freq: Status: Active Protocol: Document 04/01/21 10:30 AMB (Rec: 04/02/21 14:53 AMB [email or web address]) Special Tests Knee Special Tests Lateral Pivot Shift Test Results - Nabila Test Test Results - Carr's Compression Test Results - PT-OP-M Strength Start: 03/28/21 15:02 Freq: Status: Active Protocol: Document 04/01/21 10:30 AMB (Rec: 04/02/21 14:47 AMB [email or web address]) Hip Strength Hip Manual Muscle Testing Left Flexion (L2) 4+ Good+ Extension (S1) 4+ Good+ Abduction 4+ Good+ Adduction 4+ Good+ Right Flexion (L2) 4 Good Extension (S1) 4 Good Abduction 4 Good Adduction 4 Good Knee Strength Knee Manual Muscle Testing Right Flexion (S2) 5 Normal Extension (L3) 4 Good Left Flexion (S2) 5 Normal Extension (L3) 5 Normal PT-OP-Q Treatments Start: 03/28/21 15:02 Freq: Status: Active Protocol: Document 05/08/21 09:00 AMB (Rec: 05/08/21 12:51 AMB [id number]) Cardio Equipment Recumbent Bicycle Duration (Minutes) 10 Resistance 9 Seat Position 4 Therapeutic Exercises Standing Exercises heel raises Standing Exercise Name double leg Comments 10 1 Standing Exercise Name 1. calf stretch on stair 2. staggered stance gastroc stretch Reps/Minutes 30x4 Comments added to HEP Manual Therapy Treatment Soft Tissue Mobilization 1 Body Location medial calf and IT band Intensity/Depth Moderate Comments medial PT-OP-T Assessment and Plan Start: 03/28/21 15:02 Freq: Status: Active Protocol: Document 05/08/21 09:00 AMB (Rec: 05/08/21 09:49 AMB [id number]) Physical Therapy Assessment Goals Two Impairment Pain Short Term Goal (STG) Parveen will roll over in bed without knee pain. STG Duration 5 weeks Nail Cutter Goal (LTG) Parveen will walk 1/2 mile without knee pain. LTG Duration 10 weeks One Impairment Strength Short Term Goal (STG) Parveen will improve his quad strength so that he can perform a straight leg raise without quad lag. STG Duration 5 weeks Nail Cutter Goal (LTG) Parveen will be independent and consistent with a strengthening home exercise program. LTG Duration 10 weeks Assessment Summary Assessment Pt's tenderness is improving, gait is improving, but pain with rolling over in bed continues. Physical Therapy Plan Frequency and Duration Frequency of Treatment 2x/Week Duration of Treatment 10 weeks Plan of Care Start Date 04/01/21 Plan of Care End Date 06/10/21 Therapeutic Interventions Therapeutic Interventions Gait Training,Home Exercise Program,Manual Therapy, Neuromuscular Re-education, Self-Care/Home Management, Therapeutic Activities, Therapeutic Exercises Modalities Cold Pack/Ice Massage,Electric Stimulation,Hot Packs Next Visit Focus/Plan Next Note Type Treatment Note Next Visit Plan Continue to look at IT band and calf's role in medial knee pain, review calf stretches added to HEP
--- NOTE | 2021-05-12 11:37 | PT.OTN ---
Current Diagnoses Pain in right knee (05/12/21) Physical Therapy Treatment Note PT-OP-A Visit Information Start: 03/28/21 15:02 Freq: Status: Active Protocol: Document 05/12/21 09:27 [email or web address] (Rec: 05/12/21 10:17 MA [id number]) Out-Patient Physical Therapy Visit Information Visit Information Visit Type Treatment Note Visit Start Time 09:30 Visit Stop Time 10:14 Total Visit Minutes 44 Visit Number 7 Number of SCIENCE EDUCATION PROFESSOR Visits 1 PT-OP-B Current Condition Start: 03/28/21 15:02 Freq: Status: Active Protocol: Document 04/01/21 10:30 AMB (Rec: 04/01/21 10:40 AMB [id number]) Current Condition History of Current Condition Onset Date 2 months Current Complaints R knee pain History of Current Condition 2 months ago, medial right knee pain started insidiously. Walking, stairs, standing, sitting with knee bent, rolling over in bed all increase pain. Dull ache in the medial knee, twisting or turning will make the pain sharp. Denies locking. In the last 2 months I've been off my feet feels like that is making the legs weak. Used to walk 5x/week 1.5 miles on flat terrain. Immediately hurts if tries to walk. Walking and rolling over in bed seem to be the worst. Treatment Goals Patient/Caregiver Goals Return to walking without pain Prior Functional Status Baseline Function- ADL's Independent Baseline Function- Mobility Independent Personal Factors Other Personal Factors That May Effect Depression, hypothyroid, hx Therapy/Recovery back pain, arthritis PT-OP-C Subjective Start: 03/28/21 15:02 Freq: Status: Active Protocol: Document 05/12/21 09:27 [email or web address] (Rec: 05/12/21 10:17 MA [id number]) OP-PT Subjective Patient Comments Patient Comments Parveen has been able to walk with his and feels his pain has improved overall. He does have similar pain starting in his L side medial knee and wonders if it could possibly be arthritis. Patient Reported Progress Improving PT-OP-J Posture/Palpation/Skin Start: 03/28/21 15:02 Freq: Status: Active Protocol: Document 04/01/21 10:30 AMB (Rec: 04/02/21 14:47 AMB [email or web address]) Palpation Assessment Location One Palpation Details Tenderness and mild non pitting swelling at medial knee, no pain with patellar mobility testing PT-OP-K Range of Motion Start: 03/28/21 15:02 Freq: Status: Active Protocol: Document 04/01/21 10:30 AMB (Rec: 04/02/21 14:47 AMB [email or web address]) Knee Goniometric Range of Motion Knee Right Knee ROM WFL Yes Patient Position Supine PT-OP-L Special Tests Start: 03/28/21 15:02 Freq: Status: Active Protocol: Document 04/01/21 10:30 AMB (Rec: 04/02/21 14:53 AMB [email or web address]) Special Tests Knee Special Tests Lateral Pivot Shift Test Results - Nabila Test Test Results - Carr's Compression Test Results - PT-OP-M Strength Start: 03/28/21 15:02 Freq: Status: Active Protocol: Document 04/01/21 10:30 AMB (Rec: 04/02/21 14:47 AMB [email or web address]) Hip Strength Hip Manual Muscle Testing Left Flexion (L2) 4+ Good+ Extension (S1) 4+ Good+ Abduction 4+ Good+ Adduction 4+ Good+ Right Flexion (L2) 4 Good Extension (S1) 4 Good Abduction 4 Good Adduction 4 Good Knee Strength Knee Manual Muscle Testing Right Flexion (S2) 5 Normal Extension (L3) 4 Good Left Flexion (S2) 5 Normal Extension (L3) 5 Normal PT-OP-Q Treatments Start: 03/28/21 15:02 Freq: Status: Active Protocol: Document 05/12/21 09:27 MA (Rec: 05/12/21 10:17 MA [id number]) Cardio Equipment Recumbent Bicycle Duration (Minutes) 10 Resistance 9 Seat Position 4 Therapeutic Exercises Standing Exercises heel raises Standing Exercise Name double leg Comments 10 4 Standing Exercise Name 10x sit<>stands, 5x full squats Side bilateral Reps/Minutes 15 Manual Therapy Treatment Soft Tissue Mobilization 1 Body Location medial calf Mobilization Type Myofascial Release,Sustained Pressure,Trigger Point Release Intensity/Depth Moderate Body Position Hooklying Self-Care/Home Management Treatment Education Other Education Pt has questions about arthritis vs mm pain that SCIENCE EDUCATION PROFESSOR answers. Pt also states he has had a varicose vein surgery ~ 5 years ago that didn't seem to help his medial leg pain or the vein swelling but he wonders if it could be related . Discussed with pt how the two could be related, how surgeries can aggrivate mms, how swelling of veins may cause soreness, etc. PT-OP-T Assessment and Plan Start: 03/28/21 15:02 Freq: Status: Active Protocol: Document 05/12/21 09:27 MA (Rec: 05/12/21 10:17 MA [id number]) Physical Therapy Assessment Goals Two Impairment Pain Short Term Goal (STG) Parveen will roll over in bed without knee pain. STG Duration 5 weeks [facility]np Goal (LTG) Parveen will walk 1/2 mile without knee pain. 05/12/20- pt states he now has discomfort vs his usual pain LTG Duration 10 weeks One Impairment Strength Short Term Goal (STG) Parveen will improve his quad strength so that he can perform a straight leg raise without quad lag. STG Duration 5 weeks Penitentiary Goal (LTG) Parveen will be independent and consistent with a strengthening home exercise program. LTG Duration 10 weeks Assessment Summary Assessment Pt has relief with STM to medial R gastroc. He does have enlarged veins on anterior medial R leg. Pt states he had varicose vein surgery five years ago but feels it didn't help with the pain or swelling of his veins. Pt was able to walk .75 mi yesterday with only discomfort vs his normal leg pain showing good improvement. He feels he can move better in bed now without pain but pain does still occassionally persist. He states he doesn't notice he is doing anything in particular when pain starts and it seems random when he rolls over whether it hurts or not. Physical Therapy Plan Frequency and Duration Frequency of Treatment 2x/Week Duration of Treatment 10 weeks Plan of Care Start Date 04/01/21 Plan of Care End Date 06/10/21 Therapeutic Interventions Therapeutic Interventions Gait Training,Home Exercise Program,Manual Therapy, Neuromuscular Re-education, Self-Care/Home Management, Therapeutic Activities, Therapeutic Exercises Modalities Cold Pack/Ice Massage,Electric Stimulation,Hot Packs Next Visit Focus/Plan Next Note Type Treatment Note Next Visit Plan Watch for increased varicose vein swelling. Continue to look at IT band and calf's role in medial knee pain. Calf stretches
--- NOTE | 2021-05-19 10:18 | PT.OTN ---
Current Diagnoses Pain in right knee (05/19/21) Physical Therapy Treatment Note PT-OP-A Visit Information Start: 03/28/21 15:02 Freq: Status: Active Protocol: Document 05/19/21 09:24 MA (Rec: 05/19/21 10:18 MA [id number]) Out-Patient Physical Therapy Visit Information Visit Information Visit Type Treatment Note Visit Start Time 09:30 Visit Stop Time 10:10 Total Visit Minutes 40 Visit Number 8 Number of PROJ ENGINEER Visits 2 PT-OP-B Current Condition Start: 03/28/21 15:02 Freq: Status: Active Protocol: Document 04/01/21 10:30 AMB (Rec: 04/01/21 10:40 AMB [id number]) Current Condition History of Current Condition Onset Date 2 months Current Complaints R knee pain History of Current Condition 2 months ago, medial right knee pain started insidiously. Walking, stairs, standing, sitting with knee bent, rolling over in bed all increase pain. Dull ache in the medial knee, twisting or turning will make the pain sharp. Denies locking. In the last 2 months I've been off my feet feels like that is making the legs weak. Used to walk 5x/week 1.5 miles on flat terrain. Immediately hurts if tries to walk. Walking and rolling over in bed seem to be the worst. Treatment Goals Patient/Caregiver Goals Return to walking without pain Prior Functional Status Baseline Function- ADL's Independent Baseline Function- Mobility Independent Personal Factors Other Personal Factors That May Effect Depression, hypothyroid, hx Therapy/Recovery back pain, arthritis PT-OP-C Subjective Start: 03/28/21 15:02 Freq: Status: Active Protocol: Document 05/19/21 09:24 MA (Rec: 05/19/21 10:18 MA [id number]) OP-PT Subjective Patient Comments Patient Comments Pt reports pain in calf is about the same but pain in knee has improved and he can walk more now. PT-OP-J Posture/Palpation/Skin Start: 03/28/21 15:02 Freq: Status: Active Protocol: Document 04/01/21 10:30 AMB (Rec: 04/02/21 14:47 AMB [email or web address]) Palpation Assessment Location One Palpation Details Tenderness and mild non pitting swelling at medial knee, no pain with patellar mobility testing PT-OP-K Range of Motion Start: 03/28/21 15:02 Freq: Status: Active Protocol: Document 04/01/21 10:30 AMB (Rec: 04/02/21 14:47 AMB [email or web address]) Knee Goniometric Range of Motion Knee Right Knee ROM WFL Yes Patient Position Supine PT-OP-L Special Tests Start: 03/28/21 15:02 Freq: Status: Active Protocol: Document 04/01/21 10:30 AMB (Rec: 04/02/21 14:53 AMB [email or web address]) Special Tests Knee Special Tests Lateral Pivot Shift Test Results - Nabila Test Test Results - Carr's Compression Test Results - PT-OP-M Strength Start: 03/28/21 15:02 Freq: Status: Active Protocol: Document 04/01/21 10:30 AMB (Rec: 04/02/21 14:47 AMB [email or web address]) Hip Strength Hip Manual Muscle Testing Left Flexion (L2) 4+ Good+ Extension (S1) 4+ Good+ Abduction 4+ Good+ Adduction 4+ Good+ Right Flexion (L2) 4 Good Extension (S1) 4 Good Abduction 4 Good Adduction 4 Good Knee Strength Knee Manual Muscle Testing Right Flexion (S2) 5 Normal Extension (L3) 4 Good Left Flexion (S2) 5 Normal Extension (L3) 5 Normal PT-OP-Q Treatments Start: 03/28/21 15:02 Freq: Status: Active Protocol: Document 05/19/21 09:24 MA (Rec: 05/19/21 10:18 MA [id number]) Cardio Equipment Recumbent Bicycle Duration (Minutes) 10 Resistance 9 Seat Position 4 Therapeutic Exercises Standing Exercises 4 Standing Exercise Name 10x sit<>stands, 5x full squats Side bilateral Reps/Minutes 15 1 Standing Exercise Name 1. calf stretch on stair 2. staggered stance gastroc stretch Reps/Minutes 30x4 Comments added to HEP Gait Training Gait Activity Uneven Surfaces Description walking on grass, gravel, and stairs Device Used single rail assist for stairs Surface uneven Distance/Duration 5' Comments Pt has no increased knee or calf pain on uneven surfaces Manual Therapy Treatment Soft Tissue Mobilization 1 Body Location medial calf Mobilization Type Myofascial Release,Sustained Pressure,Trigger Point Release Intensity/Depth Moderate Body Position Hooklying Self-Care/Home Management Treatment Education Other Education Discussed pt's gait, with pt having decreased stance time on RLE. He walks in crocs when going for walks with . Educated pt on buying shoes that tie to give pt more support to decrease knee and calf pain. PT-OP-T Assessment and Plan Start: 03/28/21 15:02 Freq: Status: Active Protocol: Document 05/19/21 09:24 MA (Rec: 05/19/21 10:18 MA [id number]) Physical Therapy Assessment Goals Two Impairment Pain Short Term Goal (STG) Parveen will roll over in bed without knee pain. STG Duration 5 weeks [facility] Goal (LTG) Parveen will walk 1/2 mile without knee pain. 05/12/20- pt states he now has discomfort vs his usual pain LTG Duration 10 weeks One Impairment Strength Short Term Goal (STG) Parveen will improve his quad strength so that he can perform a straight leg raise without quad lag. STG Duration 5 weeks Infection Control Coordinator Goal (LTG) Parveen will be independent and consistent with a strengthening home exercise program. LTG Duration 10 weeks Assessment Summary Assessment Pt continues to have relief with STM. After speaking more with pt about walking habits, pt admits he walks in [employer], a lightweight, low support shoe brand. Educated pt on importance of wearing more supportive shoes to walk to decrease knee/calf pain. Practiced gait on uneven surfaces during tx with pt having no increase in pain but PT notes pt has decreased stance time on RLE. Discussed with pt working on heel strike on R and increasing step length to increase stance time on RLE. Will continue working on pt's gait next session and follow up on whether pt was able to purchase more supportive shoes for walking. Physical Therapy Plan Frequency and Duration Frequency of Treatment 2x/Week Duration of Treatment 10 weeks Plan of Care Start Date 04/01/21 Plan of Care End Date 06/10/21 Therapeutic Interventions Therapeutic Interventions Gait Training,Home Exercise Program,Manual Therapy, Neuromuscular Re-education, Self-Care/Home Management, Therapeutic Activities, Therapeutic Exercises Modalities Cold Pack/Ice Massage,Electric Stimulation,Hot Packs Next Visit Focus/Plan Next Note Type Treatment Note Next Visit Plan Follow up on whether pt bought more supportive shoes and if they made a difference during walks. Work on increasing stance time on RLE and heel strike during gait.
--- NOTE | 2021-05-22 10:43 | PT.OTN ---
Current Diagnoses Pain in right knee (05/22/21) Physical Therapy Treatment Note PT-OP-A Visit Information Start: 03/28/21 15:02 Freq: Status: Active Protocol: Document 05/22/21 09:00 AMB (Rec: 05/22/21 09:44 AMB [id number]) Out-Patient Physical Therapy Visit Information Visit Information Visit Type Discharge Summary Visit Start Time 09:00 Visit Stop Time 09:45 Total Visit Minutes 45 Visit Number 9 Number of ICU CLERK Visits 0 PT-OP-B Current Condition Start: 03/28/21 15:02 Freq: Status: Active Protocol: Document 04/01/21 10:30 AMB (Rec: 04/01/21 10:40 AMB [id number]) Current Condition History of Current Condition Onset Date 2 months Current Complaints R knee pain History of Current Condition 2 months ago, medial right knee pain started insidiously. Walking, stairs, standing, sitting with knee bent, rolling over in bed all increase pain. Dull ache in the medial knee, twisting or turning will make the pain sharp. Denies locking. In the last 2 months I've been off my feet feels like that is making the legs weak. Used to walk 5x/week 1.5 miles on flat terrain. Immediately hurts if tries to walk. Walking and rolling over in bed seem to be the worst. Treatment Goals Patient/Caregiver Goals Return to walking without pain Prior Functional Status Baseline Function- ADL's Independent Baseline Function- Mobility Independent Personal Factors Other Personal Factors That May Effect Depression, hypothyroid, hx Therapy/Recovery back pain, arthritis PT-OP-C Subjective Start: 03/28/21 15:02 Freq: Status: Active Protocol: Document 05/22/21 09:00 AMB (Rec: 05/22/21 09:44 AMB [id number]) OP-PT Subjective Patient Comments Patient Comments Parveen reports she is feeling pretty good. NO pain with rolling over. Walking is slowly getting better. PT-OP-J Posture/Palpation/Skin Start: 03/28/21 15:02 Freq: Status: Active Protocol: Document 04/01/21 10:30 AMB (Rec: 04/02/21 14:47 AMB [email or web address]) Palpation Assessment Location One Palpation Details Tenderness and mild non pitting swelling at medial knee, no pain with patellar mobility testing PT-OP-K Range of Motion Start: 03/28/21 15:02 Freq: Status: Active Protocol: Document 04/01/21 10:30 AMB (Rec: 04/02/21 14:47 AMB [email or web address]) Knee Goniometric Range of Motion Knee Right Knee ROM WFL Yes Patient Position Supine PT-OP-L Special Tests Start: 03/28/21 15:02 Freq: Status: Active Protocol: Document 04/01/21 10:30 AMB (Rec: 04/02/21 14:53 AMB [email or web address]) Special Tests Knee Special Tests Lateral Pivot Shift Test Results - Nabila Test Test Results - Carr's Compression Test Results - PT-OP-M Strength Start: 03/28/21 15:02 Freq: Status: Active Protocol: Document 04/01/21 10:30 AMB (Rec: 04/02/21 14:47 AMB [email or web address]) Hip Strength Hip Manual Muscle Testing Left Flexion (L2) 4+ Good+ Extension (S1) 4+ Good+ Abduction 4+ Good+ Adduction 4+ Good+ Right Flexion (L2) 4 Good Extension (S1) 4 Good Abduction 4 Good Adduction 4 Good Knee Strength Knee Manual Muscle Testing Right Flexion (S2) 5 Normal Extension (L3) 4 Good Left Flexion (S2) 5 Normal Extension (L3) 5 Normal PT-OP-Q Treatments Start: 03/28/21 15:02 Freq: Status: Active Protocol: Document 05/22/21 10:40 AMB (Rec: 05/22/21 10:41 AMB [id number]) Cardio Equipment Recumbent Bicycle Duration (Minutes) 10 Resistance 9 Seat Position 4 Therapeutic Exercises Standing Exercises heel raises Standing Exercise Name single leg with UE support Comments 10 4 Standing Exercise Name 10x sit<>stands, 5x full squats Side bilateral Reps/Minutes 15 1 Standing Exercise Name 1. calf stretch on stair 2. staggered stance gastroc stretch Reps/Minutes 30x4 Comments added to HEP Manual Therapy Treatment Soft Tissue Mobilization 1 Body Location medial calf Mobilization Type Myofascial Release,Sustained Pressure,Trigger Point Release Intensity/Depth Moderate Body Position Hooklying PT-OP-T Assessment and Plan Start: 03/28/21 15:02 Freq: Status: Active Protocol: Document 05/22/21 09:00 AMB (Rec: 05/22/21 09:44 AMB [id number]) Physical Therapy Assessment Goals Two Impairment Pain Short Term Goal (STG) Parveen will roll over in bed without knee pain. STG Duration MET Senior Care Goal (LTG) Parveen will walk 1/2 mile without knee pain. LTG Duration MET One Impairment Strength Short Term Goal (STG) Parveen will improve his quad strength so that he can perform a straight leg raise without quad lag. STG Duration MET Superintendent Local Goal (LTG) Parveen will be independent and consistent with a strengthening home exercise program. LTG Duration MET Assessment Summary Assessment Parveen feels he is ready for discharge. He is able to roll over and go on short walks without pain. He is able to walk 1/2 a mile without pain in either knee, but he is not back to his prior level of function of walking multiple miles. He will continue his HEP and should be able to continue to work on his gait and strengthening/stretching independently, and slowly increase his walking tolerance . Physical Therapy Plan Discharge Physical Therapy Discharge Reasons Goals Met
== END 2021-05-27 08:24 | disposition home or self-care (01) ==
LOC: PHYS 09:00
PROVIDERS: Family Provider Internal Medicine; PCP Internal Medicine; Referring Provider Internal Medicine; Visit Provider Internal Medicine
DX: M25.561 Pain in right knee (principal)
CPT/HCPCS: 97110; 97116; 97140; 97161; 97535

== ENCOUNTER → 2021-08-27 08:29 | Outpatient (CLI) | payer MEDICARE, SELFPAY ==
[2021-08-27 09:04] LABS: Add Manual Diff / Slide Review NO; Basophils Absolute Auto 0 /uL (0-100); Eosinophils Absolute Auto 200 /uL (0-450); Eosinophils Percent Auto 6.1 % (2-4); Hematocrit 43.9 % (41-53); Hemoglobin 15.1 g/dL (13.5-17.5); Lymphocytes Absolute Auto 800 /uL (1100-4500); Mean Corpuscular HGB Conc 34.5 % (30-36); Mean Corpuscular Volume 95.8 fL (80-100); Monocytes Absolute Auto 500 /uL (0-900); Monocytes Percent Auto 12.9 % (3-14); Neutrophils Absolute Auto 2500 /uL (1500-7000); Platelet Count 161 X10^3/uL (150-400); Red Blood Cell Count 4.58 X10^6/uL (4.5-5.9); Red Cell Distribution Width 13.7 % (11.6-14.8); White Blood Cell Count 4.1 X10^3/uL (4.5-11.0)
[2021-08-27 09:55] LABS: Alanine Aminotransferase 22 IU/L (<50); Albumin 3.8 g/dL (3.5-5.0); Albumin Globulin Ratio 1.3 (1.0-2.8); Alkaline Phosphatase 57 U/L (38-126); Aspartate Aminotransferase 31 IU/L (17-59); BUN Creatinine Ratio 15.3 (6-22); Bilirubin Total 0.4 mg/dL (0.2-1.3); Blood Urea Nitrogen 19 mg/dL (9-20); Calcium 8.5 mg/dL (8.4-10.2); Carbon Dioxide 27 mmol/L (22-32); Chloride 107 mmol/L (98-107); Cholesterol 159 mg/dL (140-199); Estimated Glomerular Filt Rate 58 mL/min (>60); Glucose 101 mg/dL (80-110); HDL Cholesterol 46 mg/dL (40-60); HEMOLYSIS < 15 (0-50); LDL Cholesterol Calculated 100 mg/dL (<100); Potassium 4.4 mmol/L (3.4-5.1); Sodium 140 mmol/L (137-145); Total Protein 6.8 g/dL (6.3-8.2); Triglycerides 66 mg/dL (35-150)
[2021-08-27 10:15] LABS: Thyroid Stimulating Hormone 3.68 uIU/mL (0.47-4.68)
== END ==
PROVIDERS: Family Provider Internal Medicine; PCP Internal Medicine; Referring Provider Internal Medicine; Visit Provider Internal Medicine
DX: E78.2 Mixed hyperlipidemia (principal); I10 Essential (primary) hypertension
CPT/HCPCS: 36415; 80053; 80061; 84443; 85025

== ENCOUNTER → 2021-09-09 09:08 | Outpatient (CLI) | payer MEDICARE, SELFPAY ==
[2021-09-09 12:52] LABS: Prostate Specific Antigen 2.82 ng/mL (0.10-4.00)
[2021-09-10 07:37] LABS: PSA Free % 30.7 % (.); PSA, Total 2.8 ng/mL (0.0-4.0)
== END ==
PROVIDERS: Family Provider Internal Medicine; PCP Internal Medicine; Referring Provider Internal Medicine; Visit Provider Internal Medicine
DX: N40.1 Benign prostatic hyperplasia with lower urinary tract symptoms (principal); N13.8 Other obstructive and reflux uropathy
CPT/HCPCS: 36415; 84153; 84154

== ENCOUNTER → 2022-06-03 10:29 | Outpatient (CLI) | payer MEDICARE, SELFPAY ==
--- NOTE | 2022-06-03 10:30 | DI.RAD.S_ITS ---
PROCEDURE: XR LUMBAR SPINE 2-3V INDICATIONS: back pain TECHNIQUE: 3 views of the lumbar spine were acquired. COMPARISON: [facility], , L-SPINE 2-3 VIEWS, 01/14/2007, 15:11. FINDINGS: Bones: 5 [id number] vertebrae are present. There is normal bony alignment. There is diffuse, mild intervertebral disc space narrowing and osteophytosis. There is facet sclerosis of the lower lumbar spine. No compression deformities. The extent of degenerative change has increased predominantly at L4-5 and L5-S1 when compared with the prior study dated January 14, 2007. No vertebral body compression fractures. No suspicious bony lesions. Soft tissues: Overlying bowel gas pattern is normal. No suspicious soft tissue calcifications. IMPRESSION: Degenerative change, increased from the prior study from 2006. Dictated by: Franny Ahuja M.D. on 06/03/2022 at 14:01 Approved by: Franny Ahuja M.D. on 06/03/2022 at 14:02
== END ==
PROVIDERS: Family Provider Internal Medicine; PCP Internal Medicine; Referring Provider Internal Medicine; Visit Provider Internal Medicine
DX: S39.012A Strain of muscle, fascia and tendon of lower back, initial encounter (principal); M47.816 Spondylosis without myelopathy or radiculopathy, lumbar region; M47.817 Spondylosis without myelopathy or radiculopathy, lumbosacral region
CPT/HCPCS: 72100

== ENCOUNTER → 2022-09-10 11:01 | Outpatient (CLI) | payer MEDICARE, SELFPAY ==
[2022-09-10 13:05] LABS: Aspartate Aminotransferase 30 IU/L (17-59); BUN Creatinine Ratio 16.5 (6-22); Blood Urea Nitrogen 23 mg/dL (9-20); Calcium 8.7 mg/dL (8.4-10.2); Carbon Dioxide 26 mmol/L (22-32); Chloride 104 mmol/L (98-107); Cholesterol 179 mg/dL (140-199); Estimated Glomerular Filt Rate 50 mL/min (>60); Glucose 91 mg/dL (80-110); HDL Cholesterol 51 mg/dL (40-60); HEMOLYSIS < 15 (0-50); LDL Cholesterol Calculated 113 mg/dL (<100); Potassium 4.5 mmol/L (3.4-5.1); Sodium 137 mmol/L (137-145); Triglycerides 73 mg/dL (35-150)
[2022-09-10 13:29] LABS: TSH w/ Reflex to FT4 3.88 uIU/mL (0.47-4.68)
[2022-09-10 13:30] LABS: Prostate Specific Antigen 4.01 ng/mL (0.10-4.00)
== END ==
PROVIDERS: Family Provider Internal Medicine; PCP Internal Medicine; Referring Provider Internal Medicine; Visit Provider Internal Medicine
DX: E03.9 Hypothyroidism, unspecified (principal); N40.1 Benign prostatic hyperplasia with lower urinary tract symptoms; E78.2 Mixed hyperlipidemia; I10 Essential (primary) hypertension; N13.8 Other obstructive and reflux uropathy
CPT/HCPCS: 36415; 80048; 80061; 84153; 84443; 84450

== ENCOUNTER → 2022-12-12 07:48 | Outpatient (CLI) | payer MEDICARE, SELFPAY ==
[2022-12-12 10:34] LABS: BUN Creatinine Ratio 19.5 (6-22); Blood Urea Nitrogen 23 mg/dL (9-20); Carbon Dioxide 27 mmol/L (22-32); Chloride 103 mmol/L (98-107); Estimated Glomerular Filt Rate > 60 mL/min (>60); Glucose 95 mg/dL (80-110); HEMOLYSIS < 15 (0-50); Potassium 4.4 mmol/L (3.4-5.1); Sodium 138 mmol/L (137-145)
[2022-12-13 11:08] LABS: PSA Free % 29.1 % (.); PSA, Total 3.4 ng/mL (0.0-4.0)
== END ==
PROVIDERS: Family Provider Internal Medicine; PCP Internal Medicine; Referring Provider Internal Medicine; Visit Provider Internal Medicine
DX: I10 Essential (primary) hypertension (principal); R97.20 Elevated prostate specific antigen [PSA]
CPT/HCPCS: 36415; 80048; 84153; 84154

== ENCOUNTER → 2022-12-16 10:31 | Outpatient (CLI) | payer MEDICARE, SELFPAY ==
[2022-12-16 15:04] LABS: Creatinine Urine Random 100.2 mg/dL
[2022-12-16 15:20] LABS: Microalbumi Creatinin Ratio Ur 287.4 ug/mg CR (<30); Microalbumin Urine Random 28.8 mg/dL (0-1.6)
== END ==
PROVIDERS: Family Provider Internal Medicine; PCP Internal Medicine; Visit Provider Internal Medicine
DX: I10 Essential (primary) hypertension (principal)
CPT/HCPCS: 82043; 82570

== ENCOUNTER → 2023-04-21 09:01 | Outpatient (CLI) | payer MEDICARE, SELFPAY ==
[2023-04-21 10:08] LABS: BUN Creatinine Ratio 15.4 (6-22); Blood Urea Nitrogen 18 mg/dL (9-20); Calcium 9.4 mg/dL (8.4-10.2); Carbon Dioxide 29 mmol/L (22-32); Chloride 103 mmol/L (98-107); Estimated Glomerular Filt Rate > 60 mL/min (>60); Glucose 96 mg/dL (80-110); HEMOLYSIS < 15 (0-50); Potassium 4.2 mmol/L (3.4-5.1); Sodium 137 mmol/L (137-145)
== END ==
PROVIDERS: Family Provider Internal Medicine; PCP Internal Medicine; Referring Provider Internal Medicine; Visit Provider Internal Medicine
DX: I10 Essential (primary) hypertension (principal)
CPT/HCPCS: 36415; 80048

== ENCOUNTER 2023-04-21 09:13 | Emergency (ER) | payer MEDICARE, SELFPAY ==
[2023-04-21] VITALS (12 sets, daily range): BP systolic 143–232; BP diastolic 70–147; PULSE 62–83; RESP 11–26; TEMP 36.6; O2SAT 94–97; BMI 27.1
--- NOTE | 2023-04-21 09:20 | DI.RAD.S_ITS ---
PROCEDURE: XR CHEST 1V INDICATIONS: chest pain TECHNIQUE: One view of the chest was acquired. COMPARISON: [facility], , CHEST 1 VIEW, 09/17/2016, 8:17. FINDINGS: Surgical changes and devices: None. Lungs and pleura: Lungs are clear. No pleural effusions or pneumothorax. Mediastinum: Mediastinal contours appear normal. Heart size is normal. Bones and chest wall: No suspicious bony lesions. Overlying soft tissues appear unremarkable. IMPRESSION: No acute cardiopulmonary abnormality is seen. Dictated by: Talha Roche M.D. on 04/21/2023 at 9:43 Approved by: Talha Roche M.D. on 04/21/2023 at 9:44
[2023-04-21 09:31] LABS: Add Manual Diff / Slide Review NO; Basophils Absolute Auto 0 /uL (0-100); Basophils Percent Auto 1.1 % (0-2); Eosinophils Absolute Auto 200 /uL (0-450); Eosinophils Percent Auto 3.8 % (2-4); Hemoglobin 16.2 g/dL (13.5-17.5); Lymphocytes Absolute Auto 900 /uL (1100-4500); Lymphocytes Percent Auto 21.2 % (25-40); Mean Corpuscular HGB Conc 34.6 % (30-36); Mean Corpuscular Hemoglobin 33.5 PG (26-34); Monocytes Absolute Auto 500 /uL (0-900); Monocytes Percent Auto 11.1 % (3-14); Neutrophils Absolute Auto 2600 /uL (1500-7000); Neutrophils Percent Auto 62.8 % (50-75); Platelet Count 172 X10^3/uL (150-400); Red Blood Cell Count 4.84 X10^6/uL (4.5-5.9); Red Cell Distribution Width 13.6 % (11.6-14.8); White Blood Cell Count 4.1 X10^3/uL (4.5-11.0)
[2023-04-21] MEDS: ASPIRIN 81 MG CHEW TAB 324 MG PO (09:32)
[2023-04-21 09:36] LABS: Prothrombin Time 11.8 SECONDS (9.4-12.5)
[2023-04-21 09:38] LABS: PTT Partial Thromboplastin Tim 28 SECONDS (25.1-36.5)
[2023-04-21 09:40] LABS: Alanine Aminotransferase 18 IU/L (<50); Albumin 4.1 g/dL (3.5-5.0); Albumin Globulin Ratio 1.4 (1.0-2.8); Alkaline Phosphatase 54 U/L (38-126); Aspartate Aminotransferase 30 IU/L (17-59); BUN Creatinine Ratio 16.2 (6-22); Blood Urea Nitrogen 18 mg/dL (9-20); Calcium 9.1 mg/dL (8.4-10.2); Carbon Dioxide 24 mmol/L (22-32); Chloride 105 mmol/L (98-107); Creatine Kinase 31 U/L (55-170); Estimated Glomerular Filt Rate > 60 mL/min (>60); Glucose 96 mg/dL (80-110); HEMOLYSIS 21 (0-50); Lipase 63 U/L (23-300); Magnesium 1.9 mg/dL (1.6-2.3); Potassium 4.1 mmol/L (3.4-5.1); Sodium 137 mmol/L (137-145); Total Protein 7.1 g/dL (6.3-8.2)
[2023-04-21 09:52] LABS: Troponin I < 0.012 ng/mL (0.01-0.034)
--- NOTE | 2023-04-21 10:12 | ED_ITS ---
HPI - General Adult General Chief complaint: Hypertension Stated complaint: high BP t-1 Time Seen by Provider: 04/21/23 10:08 Source: patient Mode of arrival: Ambulatory History of Present Illness HPI narrative: Patient is a diomedes 87-year-old male history of hypertension, hypothyroid, hyperlipidemia presenting today with elevated blood pressure. He reports that he is taking care of his home who has Alzheimer's and an alcohol abuse problem. Been for 15 years he reports increasing use of alcohol which is causing stress in the relationship. He reports that yesterday it was specifically stressful day. He said he took his blood pressure it was 240/110. He called his PCP who said to double his losartan. So he took double dose of losartan last night which seemed to help. He is very emotional he loves his but certain factors are becoming an issue. He says he was having some sort of chest discomfort last night he did not call it pain or palpitations. He just said it felt a little bit different. He says it went away he was able to sleep throughout the night he has not had any chest discomfort today. Related Data Previous Rx's Medication Instructions Recorded mirtazapine 15 mg tablet 15 mg PO BEDTIME #90 tabs 09/07/22 rosuvastatin 5 mg tablet 5 mg PO DAILY #90 tabs 09/07/22 levothyroxine 100 mcg tablet 100 mcg PO DAILY #90 tabs 09/14/22 sildenafil 100 mg tablet (Viagra) 100 mg PO DAILY PRN sexual 03/01/23 activity #30 tabs losartan 50 mg tablet 50 mg PO DAILY #90 tabs 04/06/23 Allergies Allergy/AdvReac Type Severity Reaction Status Date / Time prednisone [PREDNISONE] Allergy Intermediate BODY ITCH Verified 04/21/23 09:20 lisinopril AdvReac Intermediate Cough Verified 04/21/23 09:20 Patient History Medical History BPPV (benign paroxysmal positional vertigo) Allergic rhinitis Depression, 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 Erectile dysfunction Generalized anxiety disorder Acquired hypothyroidism Mixed hyperlipidemia Essential hypertension Alopecia Fractures Measles Kidney stones Diffuse cellulitis of face Atypical chest pain Social History Smoking Status: Never smoker Smoking Status: Never smoker alcohol intake frequency: holidays/special occasions only Substance Use Type: does not use Exam Initial Vital Signs Initial Vital Signs: Vital Signs Temperature 97.8 F 04/21/23 09:14 Pulse Rate 81 04/21/23 09:14 Respiratory Rate 14 04/21/23 09:14 Blood Pressure 232/112 H 04/21/23 09:14 Pulse Oximetry 97 04/21/23 09:14 Oxygen Delivery Method Room Air 04/21/23 09:14 GENERAL: Alert tearful 87 year and in no acute distress. HEENT: Head atraumatic,EOMI, pupils reactive, face symmetric, moist mucous membranes CARDIOVASCULAR: Regular rate and rhythm without murmurs, rubs or gallops. RESPIRATORY: Breath sounds equal bilaterally, no wheezes rales or rhonchi. ABDOMEN: Soft, nontender. Normoactive bowel sounds all 4 quadrants. No guarding or rebound. EXTREMITIES: Normal range of motion, no clubbing or edema. Neurovascularly intact NEUROLOGICAL: Alert and oriented x4.Normal gait and speech. SKIN: Warm, dry, no laceration, no petechiae, no rashes or lesions. Course Orders Ordered: ED Orders 04/21/23 09:20 XR chest 1V Stat Complete Blood Count AUTO DIFF Stat Comprehensive Metabolic Panel Stat Lipase Stat Magnesium Stat PTT Partial Thromboplastin Billy Stat Prothrombin Time INR Stat Troponin & CK Cardiac Panel Stat EKG-12 Lead Stat Discontinued Medications Aspirin (Aspirin 81 Mg Chew Tab) 324 mg PO NOW ONE Stop: 04/21/23 09:21 Last Admin: 04/21/23 09:32 Dose: 324 mg Documented By: RG Vital Signs Vital signs: Vital Signs - 8 hr 04/21/23 09:14 04/21/23 09:18 04/21/23 09:30 Temperature 97.8 F Pulse Rate 81 83 72 Respiratory Rate 14 16 Blood Pressure 232/112 H Pulse Oximetry 97 95 97 Oxygen Delivery Method Room Air 04/21/23 09:46 04/21/23 09:46 04/21/23 09:56 Temperature Pulse Rate 73 Respiratory Rate Blood Pressure 143/70 H 153/79 H Pulse Oximetry 94 Oxygen Delivery Method 04/21/23 09:56 04/21/23 10:00 04/21/23 10:00 Temperature Pulse Rate 73 75 Respiratory Rate 11 L 11 L Blood Pressure 164/75 H Pulse Oximetry 95 94 Oxygen Delivery Method 04/21/23 10:30 04/21/23 10:31 04/21/23 10:49 Temperature Pulse Rate 67 62 Respiratory Rate 21 26 H Blood Pressure 178/147 H Pulse Oximetry 96 97 Oxygen Delivery Method 04/21/23 10:49 04/21/23 10:53 04/21/23 11:01 Temperature Pulse Rate 74 Respiratory Rate 13 Blood Pressure 221/104 H 223/92 H Pulse Oximetry 95 Oxygen Delivery Method 04/21/23 11:15 Temperature Pulse Rate Respiratory Rate Blood Pressure 186/90 H Pulse Oximetry Oxygen Delivery Method Medical Decision Making Lab Data 04/21/23 09:20 04/21/23 09:20 Labs: Lab Results 04/21/23 Range/Units 09:20 WBC 4.1 L (4.5-11.0) X10^3/uL RBC 4.84 (4.5-5.9) X10^6/uL Hgb 16.2 (13.5-17.5) g/dL Hct 47.0 (41-53) % MCV 97.0 (80-100) fL MCH 33.5 (26-34) PG MCHC 34.6 (30-36) % RDW 13.6 (11.6-14.8) % Plt Count 172 (150-400) X10^3/uL Neut % (Auto) 62.8 (50-75) % Lymph % (Auto) 21.2 L (25-40) % Love % (Auto) 11.1 (3-14) % Eos % (Auto) 3.8 (2-4) % Baso % (Auto) 1.1 (0-2) % Neut # (Auto) 2600 (3795-9327) /uL Lymph # (Auto) 900 L (9294-8997) /uL Love # (Auto) 500 (0-900) /uL Eos # (Auto) 200 (0-450) /uL Baso # (Auto) 0 (0-100) /uL PT 11.8 (9.4-12.5) SECONDS INR 1.0 (0.9-1.3) APTT 28 (25.1-36.5) SECONDS Sodium 137 (137-145) mmol/L Potassium 4.1 (3.4-5.1) mmol/L Chloride 105 (98-107) mmol/L Carbon Dioxide 24 (22-32) mmol/L BUN 18 (9-20) mg/dL Creatinine 1.11 (0.66-1.25) mg/dL Estimated GFR > 60 (>60) mL/min BUN/Creatinine Ratio 16.2 (6-22) Glucose 96 (80-110) mg/dL Calcium 9.1 (8.4-10.2) mg/dL Magnesium 1.9 (1.6-2.3) mg/dL Total Bilirubin 1.0 (0.2-1.3) mg/dL AST 30 (17-59) IU/L ALT 18 (<50) IU/L Alkaline Phosphatase 54 (38-126) U/L Total Creatine Kinase 31 L (55-170) U/L Troponin I < 0.012 (0.01-0.034) ng/mL Total Protein 7.1 (6.3-8.2) g/dL Albumin 4.1 (3.5-5.0) g/dL Globulin 3.0 (1.7-4.1) g/dL Albumin/Globulin Ratio 1.4 (1.0-2.8) Lipase 63 (23-300) U/L Imaging Data Chest x-ray: Radiologist's Impression: PROCEDURE: XR CHEST 1V INDICATIONS: chest pain TECHNIQUE: One view of the chest was acquired. COMPARISON: [facility], CHEST 1 VIEW, 09/17/2016, 8:17. FINDINGS: Surgical changes and devices: None. Lungs and pleura: Lungs are clear. No pleural effusions or pneumothorax. Mediastinum: Mediastinal contours appear normal. Heart size is normal. Bones and chest wall: No suspicious bony lesions. Overlying soft tissues appear unremarkable. IMPRESSION: No acute cardiopulmonary abnormality is seen. Dictated by: Talha Roche M.D. on 04/21/2023 at 9: ECG Data Interpretation: Normal sinus rhythm rate 55 AK interval 226 QRS [address] changes frequent PVCs similar to prior MDM Narrative Medical decision making narrative: Patient 87-year-old male history of hypertension hyperlipidemia presenting with elevated blood pressure and some chest discomfort last. Long discussion with him. Very emotional and tearful. His home situation seems to be causing some stress on him. We talked about discussing the issues with his children and her children. He is very open to that thinks that it is time. He is looking for behavioral health specialist also help him. His blood pressure initially was quite high but it came down without any sort of intervention. Will talking to admit went back up. Work has been reviewed he has no evidence of end-organ damage At this time encourage him to continue checking his blood pressure home and monitoring. Discharge Plan Departure Patient Disposition: Home Clinical Impression: Essential hypertension Instructions: DI for High Blood Pressure Activity Restrictions/Additional Instructions: So nice to meet you today, it was she is a very best of luck. I recommend that you go for a walk before go home Please check blood pressure 1 or 2 times daily to continue to monitor Continue losartan as prescribed by PCP Call PCP schedule follow-up appointment in the next week Return to the ED he should have any worsening chest pain persistent blood pressure greater than 200/110 shortness of breath weakness numbness tingling Prescriptions: No Action rosuvastatin 5 mg tablet 5 mg PO DAILY Qty: 90 3RF mirtazapine 15 mg tablet 15 mg PO BEDTIME Qty: 90 3RF levothyroxine 100 mcg tablet 100 mcg PO DAILY Qty: 90 3RF sildenafil [Viagra] 100 mg tablet 100 mg PO DAILY PRN (Reason: sexual activity) Qty: 30 5RF Rx Instructions: administer 30 minutes to 4 hours before activity losartan 50 mg tablet 50 mg PO DAILY Qty: 90 3RF Referrals: Julio Scott MD [Primary Care Provider] - Stand Alone Forms: Patient Portal/API
--- NOTE | 2023-04-21 10:12 | PC.NURSE ---
Pt reports some fluttering in his chest yesterday, took his BP and it was 228/115. He decided to take an additional Losartan 50mg in addition to his daily dose. States that he had a headache yesterday. Today reports BP still elevated at home, no headache, denies CP/SOB. States he has a h/o afib 40 years ago once and it never came back. Pt does not take blood thinners or asa. Dr Scott is PCP. endorses some emotional issues at home that make him stressed-- has dementia and ETOH. While in ED BP elevated 223/113 at triage. As pt has relaxed in room last BP 157/79.
== END 2023-04-21 11:21 | disposition home or self-care (01) ==
PROVIDERS: Emergency Provider Emergency Medicine; Family Provider Internal Medicine; PCP Internal Medicine
DX: I10 Essential (primary) hypertension (principal); R07.9 Chest pain, unspecified
CPT/HCPCS: 36415; 71045; 80048; 80053; 82550; 83690; 83735; 84484; 85025; 85610; 85730; 93005; 99284

== ENCOUNTER → 2023-05-18 10:18 | Outpatient (CLI) | payer MEDICARE, SELFPAY ==
[2023-05-18 12:04] LABS: BUN Creatinine Ratio 18.7 (6-22); Blood Urea Nitrogen 20 mg/dL (9-20); Calcium 9.2 mg/dL (8.4-10.2); Carbon Dioxide 29 mmol/L (22-32); Chloride 102 mmol/L (98-107); Estimated Glomerular Filt Rate > 60 mL/min (>60); Glucose 93 mg/dL (80-110); HEMOLYSIS 15 (0-50); Potassium 4.3 mmol/L (3.4-5.1); Sodium 136 mmol/L (137-145)
== END ==
PROVIDERS: Family Provider Internal Medicine; PCP Internal Medicine; Referring Provider Internal Medicine; Visit Provider Internal Medicine
DX: I10 Essential (primary) hypertension (principal)
CPT/HCPCS: 36415; 80048

== ENCOUNTER → 2023-05-25 10:26 | Outpatient (CLI) | payer MEDICARE, SELFPAY ==
[2023-05-25 11:26] LABS: Appearance Urine UA CLEAR; Bilirubin Urine UA NEGATIVE (NEGATIVE); Color Urine UA YELLOW; Glucose Urine UA NEGATIVE (Negative); Ketones Urine UA NEGATIVE (NEGATIVE); Leukocyte Esterase Urine UA NEGATIVE (NEGATIVE); Nitrite Urine UA NEGATIVE (Negative); Occult Blood Urine UA NEGATIVE (Negative); Protein Urine UA 2+ (Negative); Specific Gravity Urine UA 1.025 (1.000-1.035); Urobilinogen Urine UA 0.2 E.U./dL (0.2); pH Urine UA 5.5 (4.5-8.0)
[2023-05-25 11:44] LABS: Bacteria Urine Occasional (0-1); Culture Indicated Urine Cult Not Indicated; RBC Urine 0-1/HPF (0-5/HPF); Squamous Epithelial Cell Urine None Seen (0-5/HPF); Urine Volume 10mL (spun); WBC Urine None Seen (0-5/HPF)
== END ==
PROVIDERS: Family Provider Internal Medicine; PCP Internal Medicine; Referring Provider Internal Medicine; Visit Provider Internal Medicine
DX: R30.0 Dysuria (principal); N39.0 Urinary tract infection, site not specified
CPT/HCPCS: 81001

== ENCOUNTER → 2023-09-09 07:32 | Outpatient (CLI) | payer MEDICARE, SELFPAY ==
[2023-09-09 08:01] LABS: Hematocrit 42.3 % (41-53); Hemoglobin 14.6 g/dL (13.5-17.5); Mean Corpuscular HGB Conc 34.5 % (30-36); Mean Corpuscular Hemoglobin 33.6 PG (26-34); Mean Corpuscular Volume 97.3 fL (80-100); Platelet Count 168 X10^3/uL (150-400); Red Blood Cell Count 4.34 X10^6/uL (4.5-5.9); Red Cell Distribution Width 13.7 % (11.6-14.8)
[2023-09-10 13:33] LABS: Alanine Aminotransferase 20 IU/L (<50); Albumin 3.8 g/dL (3.5-5.0); Albumin Globulin Ratio 1.5 (1.0-2.8); Alkaline Phosphatase 60 U/L (38-126); Aspartate Aminotransferase 29 IU/L (17-59); BUN Creatinine Ratio 14.6 (6-22); Bilirubin Total 0.7 mg/dL (0.2-1.3); Blood Urea Nitrogen 18 mg/dL (9-20); Calcium 8.5 mg/dL (8.4-10.2); Carbon Dioxide 26 mmol/L (22-32); Chloride 109 mmol/L (98-107); Cholesterol 157 mg/dL (140-199); Estimated Glomerular Filt Rate 58 mL/min (>60); Globulin 2.5 g/dL (1.7-4.1); Glucose 100 mg/dL (80-110); HDL Cholesterol 53 mg/dL (40-60); HEMOLYSIS < 15 (0-50); LDL Cholesterol Calculated 87 mg/dL (<100); Potassium 4.1 mmol/L (3.4-5.1); Sodium 139 mmol/L (137-145); Total Protein 6.3 g/dL (6.3-8.2); Triglycerides 83 mg/dL (35-150)
[2023-09-10 14:08] LABS: Prostate Specific Antigen 3.55 ng/mL (0.10-4.00)
[2023-09-10 17:22] LABS: Free T4, Direct Thyroxine 1.19 ng/dL (0.78-2.19)
== END ==
PROVIDERS: Family Provider Internal Medicine; PCP Internal Medicine; Referring Provider Internal Medicine; Visit Provider Internal Medicine
DX: I10 Essential (primary) hypertension (principal); N40.1 Benign prostatic hyperplasia with lower urinary tract symptoms; E78.2 Mixed hyperlipidemia; E03.9 Hypothyroidism, unspecified; N13.8 Other obstructive and reflux uropathy
CPT/HCPCS: 36415; 80053; 80061; 84153; 84439; 84443; 85027

== ENCOUNTER 2024-03-05 09:09 | Emergency (ER) | payer MEDICARE, SELFPAY ==
[2024-03-05] VITALS (13 sets, daily range): BP systolic 135–175; BP diastolic 62–88; PULSE 43–73; RESP 13–22; TEMP 36.4; O2SAT 92–98; BMI 29.1
--- NOTE | 2024-03-05 09:20 | EKG_ITS ---
[address] [address] Test Date: 2024-03-05 Pat Name: Parveen Saleh Department: Room: Gender: Male [employer] Chem[employer]: JESICA : [id number] Requested By: Order Number: [id number] Reading MD: Marco Sanchez MD Measurements Intervals [place] Rate: 47 P: 26 AK: 280 QRS: -26 QRSD: 98 T: 39 QT: 432 QTc: 382 Interpretive Statements Sinus bradycardia with marked sinus arrhythmia with 1st degree AV block Electronically Signed On 03-05-2024 13:41:05 PST by Marco Sanchez MD
--- NOTE | 2024-03-05 09:27 | ED_ITS ---
HPI - Dizziness General Chief Complaint: Dizziness Stated Complaint: vertigo Time Seen by Provider: 03/05/24 09:18 Source: patient Mode of arrival: Ambulatory History of Present Illness HPI Narrative: Patient is a 88-year-old male history of hypertension, hyperlipidemia hypothyroid, depression anxiety benign paroxysmal positional vertigo presents today with dizziness. He reports that he had a little bit of a cough yesterday but was overall feeling well. This morning he feels like the room is spinning. He has previously had success with Kel maneuver so he tried the Kel maneuver at home but was not successful. He is noted to be bradycardic heart rate dropped briefly to 39 and quickly improved. He reports that he has normal bradycardia he has no pacemaker. He has not fallen. He is not nauseous no vomiting no numbness tingling or weakness. He reports that the dizziness has subsided a little bit while in the emergency department Related Data Previous Rx's Medication Instructions Recorded sildenafil 100 mg tablet (Viagra) 100 mg PO DAILY PRN sexual 03/01/23 activity #30 tabs losartan 100 mg tablet 100 mg PO DAILY #90 tabs 05/04/23 tamsulosin 0.4 mg capsule 0.4 mg PO BEDTIME #90 caps 06/29/23 levothyroxine 100 mcg tablet 100 mcg PO DAILY #90 tabs 07/26/23 mirtazapine 15 mg tablet 15 mg PO BEDTIME #90 tabs 09/15/23 rosuvastatin 5 mg tablet 5 mg PO DAILY #90 tabs 09/15/23 amlodipine 5 mg tablet 5 mg PO DAILY #90 tabs 12/21/23 carvedilol 6.25 mg tablet 6.25 mg PO BID #180 tabs 12/21/23 Allergies Allergy/AdvReac Type Severity Reaction Status Date / Time prednisone [PREDNISONE] Allergy Intermediate BODY ITCH Verified 02/23/24 09:33 lisinopril AdvReac Intermediate Cough Verified 02/23/24 09:33 Patient History Medical History Venous (peripheral) insufficiency BPPV (benign paroxysmal positional vertigo) Allergic rhinitis Depression, 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 HEENT: Head atraumatic,EOMI, pupils reactive, face symmetric, moist mucous membranes CARDIOVASCULAR: Regular rate and rhythm without murmurs, rubs or gallops. RESPIRATORY: Breath sounds equal bilaterally, no wheezes rales or rhonchi. ABDOMEN: Soft, nontender. Normoactive bowel sounds all 4 quadrants. No guarding or rebound. EXTREMITIES: Normal range of motion, no clubbing or edema. Neurovascularly intact NEUROLOGICAL: Alert and oriented x4.Normal gait and speech. Cranial nerves II through XII grossly intact. Good ourxtj-aw-wboc, good xgev-op-jprn, strength equal bilaterally, no dysarthria or aphasia, sensation in tact to soft touch bilaterally, no visual changes, no facial droop SKIN: Warm, dry, no laceration, no petechiae, no rashes or lesions. Scores NIH Stroke Scale Level of Conciousness: Alert, keenly responsive Ask month/age: Answers both questions correctly. Open/close eyes, close hand: Performs both tasks correctly Best gaze horizontal: Normal Visual sheehan: No visual loss Facial palsy: Normal symetrical movement Left arm drift: No drift for full 10 sec Right arm drift: No drift for full 10 sec Left leg drift: No drift for full 5 sec Right leg drift: No drift for full 5 sec Limb ataxia: Absent Sensory on face/arms/legs: Normal, no sensory loss Best language: No aphasia, normal Dysarthria: Normal Extinction or inattention: No abnormality Total NIH Stroke scale score: 0 Course Orders Ordered: ED Orders 03/05/24 09:28 XR chest 1V Stat EKG-12 Lead Stat 03/05/24 09:36 Complete Blood Count AUTO DIFF Stat Comprehensive Metabolic Panel Stat Lipase Stat MAG [Magnesium] Stat PTT Partial Thromboplastin Billy Stat Prothrombin Time INR Stat Troponin & CK Cardiac Panel Stat 03/05/24 09:50 CT angio head and neck Stat 03/05/24 11:26 Urine Culture Stat Urine Microscopic Stat 03/05/24 11:38 MR head/brain wo con Stat Vital Signs Vital signs: Vital Signs - 8 hr 03/05/24 09:16 03/05/24 09:17 03/05/24 09:17 Temperature Pulse Rate 46 L Respiratory Rate Blood Pressure 135/62 Pulse Oximetry 92 95 Oxygen Delivery Method 03/05/24 09:20 03/05/24 09:30 03/05/24 10:00 Temperature 97.5 F L Pulse Rate 52 L 43 L 51 L Respiratory Rate 18 22 20 Blood Pressure 135/62 Pulse Oximetry 96 95 96 Oxygen Delivery Method Room Air 03/05/24 10:37 03/05/24 10:37 03/05/24 10:46 Temperature Pulse Rate 50 L 57 L Respiratory Rate 16 14 Blood Pressure 167/88 H Pulse Oximetry 98 96 Oxygen Delivery Method 03/05/24 10:46 03/05/24 11:00 03/05/24 11:00 Temperature Pulse Rate 60 Respiratory Rate 13 Blood Pressure 158/71 H 149/65 H Pulse Oximetry 94 Oxygen Delivery Method 03/05/24 11:22 03/05/24 11:22 03/05/24 11:22 Temperature Pulse Rate 62 49 L Respiratory Rate 18 15 Blood Pressure 175/84 H Pulse Oximetry 92 95 Oxygen Delivery Method 03/05/24 11:30 03/05/24 11:30 03/05/24 11:45 Temperature Pulse Rate 60 57 L Respiratory Rate 16 14 Blood Pressure 171/76 H Pulse Oximetry 96 97 Oxygen Delivery Method 03/05/24 11:45 03/05/24 12:00 03/05/24 12:00 Temperature Pulse Rate 45 L Respiratory Rate 15 Blood Pressure 174/74 H 158/70 H Pulse Oximetry 94 Oxygen Delivery Method 03/05/24 13:18 Temperature Pulse Rate 73 Respiratory Rate 14 Blood Pressure 172/76 H Pulse Oximetry 96 Oxygen Delivery Method Room Air MDM - Dizziness Lab Data 03/05/24 09:36 03/05/24 09:36 Labs: Lab Results 03/05/24 03/05/24 Range/Units 09:36 11:26 WBC 4.8 (4.5-11.0) X10^3/uL RBC 4.51 (4.5-5.9) X10^6/uL Hgb 14.8 (13.5-17.5) g/dL Hct 44.1 (41-53) % MCV 97.8 (80-100) fL MCH 32.9 (26-34) PG MCHC 33.6 (30-36) % RDW 14.1 (11.6-14.8) % Plt Count 186 (150-400) X10^3/uL Neut % (Auto) 70.4 (50-75) % Lymph % (Auto) 14.6 L (25-40) % [place] % (Auto) 10.6 (3-14) % Eos % (Auto) 3.8 (2-4) % Baso % (Auto) 0.6 (0-2) % Neut # (Auto) 3400 (1404-6410) /uL Lymph # (Auto) 700 L (5545-8766) /uL [place] # (Auto) 500 (0-900) /uL Eos # (Auto) 200 (0-450) /uL Baso # (Auto) 0 (0-100) /uL PT 10.6 (9.4-12.5) SECONDS INR 0.9 (0.9-1.3) APTT 32 (25.1-36.5) SECONDS Sodium 138 (137-145) mmol/L Potassium 4.2 (3.4-5.1) mmol/L Chloride 107 (98-107) mmol/L Carbon Dioxide 26 (22-32) mmol/L BUN 22 H (9-20) mg/dL Creatinine 1.22 (0.66-1.25) mg/dL Estimated GFR 58 L (>60) mL/min BUN/Creatinine Ratio 18.0 (6-22) Glucose 110 (80-110) mg/dL Calcium 8.9 (8.4-10.2) mg/dL Magnesium 1.9 (1.6-2.3) mg/dL Total Bilirubin 0.5 (0.2-1.3) mg/dL AST 26 (17-59) IU/L ALT 18 (<50) IU/L Alkaline Phosphatase 61 (38-126) U/L Total Creatine Kinase 42 L (55-170) U/L Troponin I < 0.012 (0.01-0.034) ng/mL Total Protein 6.6 (6.3-8.2) g/dL Albumin 3.9 (3.5-5.0) g/dL Globulin 2.7 (1.7-4.1) g/dL Albumin/Globulin Ratio 1.4 (1.0-2.8) Lipase 116 (23-300) U/L Urine RBC None seen (0-5/HPF) Urine WBC None seen (0-5/HPF) Ur Squamous Epith Cells None seen (0-5/HPF) Urine Bacteria None seen (None) Vol Urine Centrifuged 10ml (spun) Urine Dip Bedside Urine Glucose Negative Bedside Urine Bilirubin - Negative Bedside Urine Ketone - Negative Urine Specific [place] 1.010 Bedside Urine Occult Blood - Negative Bedside Urine pH 6.0 Bedside Urine Protein + 30 Bedside Urine Urobilinogen - Negative Bedside Urine Nitrite - Negative Bedside Urine Leukocytes - Negative Esterase Imaging Data Chest x-ray: Radiologist's Impression: PROCEDURE: XR CHEST 1V INDICATIONS: cough TECHNIQUE: One view of the chest was acquired. COMPARISON: [facility], , XR CHEST 1V, 04/21/2023, 9:17. FINDINGS: Surgical changes and devices: None. Lungs and pleura: The left hemidiaphragm is somewhat indistinct, which may be secondary to technique. There is no focal consolidation or effusion on the right. Mediastinum: Mediastinal contours appear normal. Heart size is normal. Bones and chest wall: No suspicious bony lesions. Overlying soft tissues appear unremarkable. IMPRESSION: Indistinctness of the left hemidiaphragm which may be secondary to technique or may represent a subtle consolidation/effusion. Formal PA and lateral chest radiographs could be considered if management would be changed. Dictated by: Grace Shoemaker M.D. on 03/05/2024 at 8:39 CTA - brain/neck: Radiologist's Impression: PROCEDURE: CT ANGIO HEAD AND NECK INDICATIONS: dizzy TECHNIQUE: After the administration of intravenous contrast, 1 mm thick sections acquired from the aortic arch through the [place] of [place]. 3-dimensional djbwxet-yrlykeeqw-bxrnktjblw (MIP) and/or volume rendering reformats were acquired of the central intracranial vasculature and neck separately. For radiation dose reduction, the following was used: automated exposure control, adjustment of mA and/or kV according to patient size. COMPARISON: None. FINDINGS: Image quality: Diagnostic. BRAIN: CSF spaces: Ventricles are normal in size and shape. Basal cisterns are patent. No extra-axial fluid collections. Brain: No significant abnormality of the brain can be seen. Skull and face: Calvarium and facial bones appear intact, without suspicious lesions. Orbits appear normal. Sinuses: Sinuses and mastoids are clear. HEAD CT ANGIOGRAPHY: Anterior circulation: Intracranial internal carotid arteries are normal in size and flow. The flow within the paired anterior cerebral arteries is normal and symmetric. The flow within the middle cerebral arteries is normal and symmetric. The anterior communicating artery is seen. No aneurysms are seen. Posterior circulation: Visualized portions of the vertebral arteries demonstrate normal caliber, and join to form a normal appearing basilar artery. Flow within the posterior cerebral arteries is normal and symmetric. No aneurysms are seen. NECK CT ANGIOGRAPHY: Carotid system: The great vessels demonstrate a conventional anatomy as they arise from the aortic arch. The origins of the common carotid arteries appear patent. The common carotid arteries demonstrate normal caliber and courses. The bifurcation regions are both widely patent. The internal carotid arteries demonstrate normal calibers and courses. Posterior circulation: The origins of the vertebral arteries both appear widely patent. The more superior extracranial portions of both vertebral arteries also demonstrate normal courses and calibers. They join to form a normal appearing basilar artery. Soft tissues: Visualized neck soft tissues demonstrate no suspicious abnormalities. Bones: No suspicious bony lesions. Visualized cervical spine appears normally aligned with degenerative changes. IMPRESSION: No significant intracranial arterial abnormality is seen. No significant abnormality is seen within the arteries of the neck. Any quantitative measurements of stenosis were performed using NASCET criteria. Dictated by: Grace Shoemaker M.D. on 03/05/2024 at 9:55 Approved by: Grace Shoemaker M.D. on 03/05/2024 at 9:58 ECG Data Attestation: I personally reviewed and interpreted this ECG as follows: Prior ECG tracings: available for review Interpretation: Sinus rhythm rate 47 [place] interval to ED QRS 98 QTC 382 first-degree AV block noted similar to prior in 04/21/24 PAC noted no other AV nadege block no ischemia MDM Narrative Medical decision making narrative: MDM CC: Dizziness Complicating co-morbidities: BPPV, hypertension hyperlipidemia, bradycardia Medical records reviewed: Latest PCP note Differential considered: Arrhythmia, carotid stenosis, BPPV, electrolyte abnormality anemia Exam documented above, pertinent findings include: NIH 0 no nystagmus awake alert nontoxic Lab Test results independently reviewed as above. Pertinent findings: CBC WBC 4.8 hemoglobin 14.8 hematocrit 44.1 no leukocytosis or anemia CMP no electrolyte abnormality creatinine 1.22 which is baseline Magnesium 1.9 Total bilirubin 0.5 AST 26 ALT 18 alk-phos 61 CPK 42 troponin negative Independently reviewed EKG as above: PAC PVC noted sinus bradycardia first- degree AV nadege block similar to previous EKGs Imaging studies independently reviewed: Chest x-ray no acute cardiopulmonary process CT angio no intracranial abnormality or carotid stenosis Consultations: none Treatments: Kel maneuver Re-evaluations: Patient is on monitor he does have alarms going off at 39 it does not last long. I do not see any dropped beats to indicate secondary AV nadege lauren or a third-degree. After Kel maneuver patient ambulated better and reports improvement of symptoms Discussion: Patient 88-year-old female history of vertigo and bradycardia presenting today with dizziness. He has not had any sore syncopal episodes he has no neurologic deficits. He is on Coreg. On the monitor his heart rate is quite variable into the low 40s 50s and sometimes 39. Do not appreciate any high-degree AV nadege block but he is having a PAC. He does have a history of vertigo previously Kel maneuver has worked did not work today. Blood work has been reviewed and overall reassuring Head CT angio negative for stenosis Ambulation trial prior to Kel maneuver patient seemed a little unsteady we did do the Kel maneuver to the right side and then retested ambulation and he had significant improvement and felt like he could go home. Discussion with family and ultimately tried to get an MRI however patient has not had any recurrence of symptoms I have low suspicion for CVA. MRI will not be available for multiple hours. Not indicated weight I do not think at this time. I do encourage patient to have an outpatient ZIO patch due to his bradycardia which I feel maybe more contributing Discharge Plan Departure Patient Disposition: Home Clinical Impression: Benign paroxysmal positional vertigo, Bradycardia Activity Restrictions/Additional Instructions: *You have been diagnosed with vertigo *What to do: At this time I do recommend do talk with your primary care provider I do think he might need a ZIO patch due to your ongoing bradycardia. This maybe causing of your dizziness. We did discuss possibility of MRI in the emergency department but your symptoms improved with Kel maneuver, MRI not indicated. May try Kel maneuver at home *Continue to take medications as directed *Follow up with your primary care provider in 2-3 days or call [phone] *Return to ER if you should have passing out worsening symptoms [or] any new, worsening or concerning symptoms Prescriptions: No Action sildenafil [Viagra] 100 mg tablet 100 mg PO DAILY PRN (Reason: sexual activity) Qty: 30 5RF Rx Instructions: administer 30 minutes to 4 hours before activity levothyroxine 100 mcg tablet 100 mcg PO DAILY Qty: 90 3RF rosuvastatin 5 mg tablet 5 mg PO DAILY Qty: 90 3RF mirtazapine 15 mg tablet 15 mg PO BEDTIME Qty: 90 3RF tamsulosin 0.4 mg capsule 0.4 mg PO BEDTIME Qty: 90 3RF amlodipine 5 mg tablet 5 mg PO DAILY Qty: 90 3RF carvedilol 6.25 mg tablet 6.25 mg PO BID Qty: 180 3RF Rx Instructions: must administer with a meal/food losartan 100 mg tablet 100 mg PO DAILY Qty: 90 3RF Referrals: Julio Scott MD [Primary Care Provider] - Stand Alone Forms: Patient Portal/API/Survey
[2024-03-05 09:46] LABS: Add Manual Diff / Slide Review NO; Basophils Absolute Auto 0 /uL (0-100); Basophils Percent Auto 0.6 % (0-2); Eosinophils Absolute Auto 200 /uL (0-450); Eosinophils Percent Auto 3.8 % (2-4); Hematocrit 44.1 % (41-53); Hemoglobin 14.8 g/dL (13.5-17.5); Lymphocytes Absolute Auto 700 /uL (1100-4500); Lymphocytes Percent Auto 14.6 % (25-40); Mean Corpuscular HGB Conc 33.6 % (30-36); Mean Corpuscular Hemoglobin 32.9 PG (26-34); Mean Corpuscular Volume 97.8 fL (80-100); Monocytes Absolute Auto 500 /uL (0-900); Monocytes Percent Auto 10.6 % (3-14); Neutrophils Absolute Auto 3400 /uL (1500-7000); Neutrophils Percent Auto 70.4 % (50-75); Platelet Count 186 X10^3/uL (150-400); Red Blood Cell Count 4.51 X10^6/uL (4.5-5.9); Red Cell Distribution Width 14.1 % (11.6-14.8); White Blood Cell Count 4.8 X10^3/uL (4.5-11.0)
[2024-03-05 09:50] LABS: INR 0.9 (0.9-1.3); Prothrombin Time 10.6 SECONDS (9.4-12.5)
--- NOTE | 2024-03-05 09:50 | DI.CT.S_ITS ---
PROCEDURE: CT ANGIO HEAD AND NECK INDICATIONS: dizzy TECHNIQUE: After the administration of intravenous contrast, 1 mm thick sections acquired from the aortic arch through the [place] of [place]. 3-dimensional szrzren-qspzecgod-xvcdwtjzpp (MIP) and/or volume rendering reformats were acquired of the central intracranial vasculature and neck separately. For radiation dose reduction, the following was used: automated exposure control, adjustment of mA and/or kV according to patient size. COMPARISON: None. FINDINGS: Image quality: Diagnostic. BRAIN: CSF spaces: Ventricles are normal in size and shape. Basal cisterns are patent. No extra-axial fluid collections. Brain: No significant abnormality of the brain can be seen. Skull and face: Calvarium and facial bones appear intact, without suspicious lesions. Orbits appear normal. Sinuses: Sinuses and mastoids are clear. HEAD CT ANGIOGRAPHY: Anterior circulation: Intracranial internal carotid arteries are normal in size and flow. The flow within the paired anterior cerebral arteries is normal and symmetric. The flow within the middle cerebral arteries is normal and symmetric. The anterior communicating artery is seen. No aneurysms are seen. Posterior circulation: Visualized portions of the vertebral arteries demonstrate normal caliber, and join to form a normal appearing basilar artery. Flow within the posterior cerebral arteries is normal and symmetric. No aneurysms are seen. NECK CT ANGIOGRAPHY: Carotid system: The great vessels demonstrate a conventional anatomy as they arise from the aortic arch. The origins of the common carotid arteries appear patent. The common carotid arteries demonstrate normal caliber and courses. The bifurcation regions are both widely patent. The internal carotid arteries demonstrate normal calibers and courses. Posterior circulation: The origins of the vertebral arteries both appear widely patent. The more superior extracranial portions of both vertebral arteries also demonstrate normal courses and calibers. They join to form a normal appearing basilar artery. Soft tissues: Visualized neck soft tissues demonstrate no suspicious abnormalities. Bones: No suspicious bony lesions. Visualized cervical spine appears normally aligned with degenerative changes. IMPRESSION: No significant intracranial arterial abnormality is seen. No significant abnormality is seen within the arteries of the neck. Any quantitative measurements of stenosis were performed using NASCET criteria. Dictated by: Grace Shoemaker M.D. on 03/05/2024 at 9:55 Approved by: Grace Shoemaker M.D. on 03/05/2024 at 9:58
[2024-03-05 09:52] LABS: PTT Partial Thromboplastin Tim 32 SECONDS (25.1-36.5)
[2024-03-05 09:55] LABS: Alanine Aminotransferase 18 IU/L (<50); Albumin 3.9 g/dL (3.5-5.0); Albumin Globulin Ratio 1.4 (1.0-2.8); Alkaline Phosphatase 61 U/L (38-126); Aspartate Aminotransferase 26 IU/L (17-59); Bilirubin Total 0.5 mg/dL (0.2-1.3); Blood Urea Nitrogen 22 mg/dL (9-20); Calcium 8.9 mg/dL (8.4-10.2); Carbon Dioxide 26 mmol/L (22-32); Chloride 107 mmol/L (98-107); Creatine Kinase 42 U/L (55-170); Estimated Glomerular Filt Rate 58 mL/min (>60); Globulin 2.7 g/dL (1.7-4.1); Glucose 110 mg/dL (80-110); HEMOLYSIS < 15 (0-50); Lipase 116 U/L (23-300); Magnesium 1.9 mg/dL (1.6-2.3); Potassium 4.2 mmol/L (3.4-5.1); Sodium 138 mmol/L (137-145); Total Protein 6.6 g/dL (6.3-8.2)
[2024-03-05 10:06] LABS: Troponin I < 0.012 ng/mL (0.01-0.034)
[2024-03-05 11:52] LABS: Urine Volume 10mL (spun)
[2024-03-05 11:53] LABS: Bacteria Urine None Seen; RBC Urine None Seen (0-5/HPF); Squamous Epithelial Cell Urine None Seen (0-5/HPF); WBC Urine None Seen (0-5/HPF)
== END 2024-03-05 13:20 | disposition home or self-care (01) ==
PROVIDERS: Emergency Provider Emergency Medicine; Family Provider Internal Medicine; PCP Internal Medicine
DX: H81.10 Benign paroxysmal vertigo, unspecified ear (principal); R00.1 Bradycardia, unspecified; I49.8 Other specified cardiac arrhythmias; I44.0 Atrioventricular block, first degree
CPT/HCPCS: 36415; 70496; 70498; 71045; 80053; 81003; 81015; 82550; 83690; 83735; 84484; 85025; 85610; 85730; 87086; 93005; 93010; 99284; Q9967

== ENCOUNTER → 2024-03-09 13:24 | Outpatient (CLI) | payer MEDICARE, SELFPAY ==
--- NOTE | 2024-03-09 13:25 | DI.MRI.S_ITS ---
PROCEDURE: MR HEAD/BRAIN WO CON INDICATIONS: complete work up for worsening vertigo TECHNIQUE: Non-contrast axial T1 spin echo, axial T2 fast spin echo, sagittal and axial FLAIR, coronal T2 fast spin echo, axial gradient echo, axial diffusion and ADC through the brain. COMPARISON: [facility], CT, CT ANGIO HEAD AND NECK, 03/05/2024, 10:16. FINDINGS: Image quality: Excellent. CSF spaces: Ventricles appear symmetric in size and shape. Basal cisterns are patent. No extra-axial fluid collections. Brain: No intracranial bleeds or mass effects. There is cerebral volume loss for age. There are periventricular and deep white matter chronic small vessel ischemic changes. Brainstem appears normal. Diffusion-weighted images show no acute infarct. No chronic ischemic insults. Normal intravascular flow voids are present. In this patient with this given history, scrutiny is given to cerebellopontine angle cisterns and to the internal auditory canals. To the limits of this standard protocol study, no masses can be seen within these regions. Skull and face: Calvarial bone marrow is normal in signal. Orbits are normal. Sinuses: Sinuses and mastoids are clear. IMPRESSION: No imaging explanation is found for this patient's presenting symptoms. To the limits of this noncontrast study, no findings of intracranial masses or mass effect can be seen. No findings of acute or subacute infarction can be seen. No prior territorial infarct can be seen. Dictated by: Myorn Hanna M.D. on 03/09/2024 at 17:05 Approved by: Myron Hanna M.D. on 03/09/2024 at 17:06
== END ==
PROVIDERS: Family Provider Internal Medicine; PCP Internal Medicine; Referring Provider Family Medicine; Visit Provider Family Medicine
DX: R42 Dizziness and giddiness (principal); I10 Essential (primary) hypertension
CPT/HCPCS: 70551

== ENCOUNTER → 2024-08-25 10:57 | Outpatient (CLI) | payer MEDICARE, SELFPAY ==
[2024-08-25 12:05] LABS: COVID-19 CEPHEID 4-PLEX PCR Negative (Negative); Influenza A - CEPHEID Flu A NEGATIVE (NEGATIVE); Influenza B - CEPHEID Flu B NEGATIVE (NEGATIVE); Respiratory Syncytial Virus Negative (Negative)
== END ==
PROVIDERS: Family Provider Internal Medicine; PCP Internal Medicine; Visit Provider Nurse Practitioner Family
DX: R05.9 Cough, unspecified (principal); R53.81 Other malaise; R53.83 Other fatigue; J02.9 Acute pharyngitis, unspecified
CPT/HCPCS: 0241U; 87070

== ENCOUNTER → 2024-08-25 11:08 | Outpatient (CLI) | payer MEDICARE, SELFPAY ==
--- NOTE | 2024-08-25 11:10 | DI.RAD.S_ITS ---
PROCEDURE: XR CHEST 2V INDICATIONS: cough, hx bronchitis TECHNIQUE: 2 views of the chest were acquired. COMPARISON: [facility], CR, XR CHEST 1V, 03/05/2024, 9:26. [facility], CR, XR CHEST 1V, 04/21/2023, 9:17. FINDINGS: Surgical changes and devices: None. Lungs and pleura: Lungs are clear. No pleural effusions or pneumothorax. Peribronchial cuffing. Mediastinum: Mediastinal contours are normal. Heart size is normal. Bones and chest wall: No suspicious bony abnormalities. Soft tissues appear unremarkable. IMPRESSION: Peribronchial cuffing, typically indicating infectious or inflammatory bronchitis. Dictated by: Shayne Shepherd M.D. on 08/25/2024 at 14:46 Approved by: Shayne Shepherd M.D. on 08/25/2024 at 14:46
== END ==
PROVIDERS: Family Provider Internal Medicine; PCP Internal Medicine; Referring Provider Nurse Practitioner Family; Visit Provider Nurse Practitioner Family
DX: J02.9 Acute pharyngitis, unspecified (principal); R05.9 Cough, unspecified; R53.81 Other malaise; R53.83 Other fatigue
CPT/HCPCS: 0241U; 71046; 87070

== ENCOUNTER 2024-09-02 07:44 | Observation (INO) | payer MEDICARE, SELFPAY ==
[2024-09-02] VITALS (17 sets, daily range): BP systolic 112–147; BP diastolic 55–67; PULSE 41–63; RESP 12–20; TEMP 36–36.7; O2SAT 87–94; BMI 29.1
--- NOTE | 2024-09-02 07:55 | DI.RAD.S_ITS ---
PROCEDURE: XR CHEST 1V INDICATIONS: short of breath TECHNIQUE: One view of the chest was acquired. COMPARISON: [facility], CR, XR CHEST 2V, 08/25/2024, 11:05. [facility], CR, XR CHEST 1V, 03/05/2024, 9:26. [facility], CR, XR CHEST 1V, 04/21/2023, 9:17. [facility], , CHEST 2 VIEW, 02/16/2015, 9:10. FINDINGS: Surgical changes and devices: None. Lungs and pleura: Left basilar atelectasis. No pleural effusions or pneumothorax. Mediastinum: Mediastinal contours appear normal. Heart size is normal. Bones and chest wall: No suspicious bony lesions. Overlying soft tissues appear unremarkable. IMPRESSION: Left basilar atelectasis. Otherwise, no acute cardiothoracic process. Dictated by: Tomy aGrcia M.D. on 09/02/2024 at 8:55 Approved by: Tomy Garcia M.D. on 09/02/2024 at 8:56
--- NOTE | 2024-09-02 07:58 | EKG_ITS ---
[place] [id number] [place] [id number] Test Date: 2024-09-02 Pat Name: Parveen Saleh Department: Room: Gender: Male [employer] Tr[employer]: : 1935 Requested By: Order Number: [id number] Reading MD: Marco Sanchez MD Measurements Intervals [place] Rate: 57 P: 39 ND: 246 QRS: -21 QRSD: 92 T: 51 QT: 412 QTc: 401 Interpretive Statements Sinus bradycardia with marked sinus arrhythmia with 1st degree AV block Electronically Signed On 09-03-2024 8:42:09 PDT by Marco Sanchez MD
[2024-09-02 08:17] LABS: Add Manual Diff / Slide Review NO; Basophils Absolute Auto 0 /uL (0-100); Eosinophils Absolute Auto 200 /uL (0-450); Eosinophils Percent Auto 4.2 % (2-4); Hematocrit 42.8 % (41-53); Hemoglobin 14.5 g/dL (13.5-17.5); Lymphocytes Absolute Auto 800 /uL (1100-4500); Lymphocytes Percent Auto 15.5 % (25-40); Mean Corpuscular HGB Conc 33.9 % (30-36); Mean Corpuscular Hemoglobin 33.3 PG (26-34); Mean Corpuscular Volume 98.2 fL (80-100); Monocytes Absolute Auto 600 /uL (0-900); Monocytes Percent Auto 11.3 % (3-14); Neutrophils Absolute Auto 3600 /uL (1500-7000); Platelet Count 192 X10^3/uL (150-400); Red Blood Cell Count 4.36 X10^6/uL (4.5-5.9); Red Cell Distribution Width 13.8 % (11.6-14.8); White Blood Cell Count 5.2 X10^3/uL (4.5-11.0)
--- NOTE | 2024-09-02 08:21 | ED.URI ---
HPI - URI/Sore Throat General Chief Complaint: Upper Respiratory Symptoms Stated Complaint: Dx w/bronchitis 1wk ago; coughing, congestion. Time Seen by Provider: 09/02/24 07:54 History of Present Illness HPI Narrative: Patient is an 88-year-old male history of hypertension hyperlipidemia hypothyroid depression anxiety BPPV presenting to day with ongoing cough and shortness of breath. He reports that for about a week or more he was had nonproductive cough. He has sometimes feel short of breath with exertion sometimes has some chest tightness but no significant pain. He does find that he gets fatigued pretty easily. He feels like he has to cough up stuff but can not. He went to the walk-in clinic last week where he was diagnosed with bronchitis. He had a viral swab strep swab and a chest x-ray, which showed peribronchial cuffing. Patient presents today with just ongoing cough. Has coughing episodes can not quite get better. No significant fever or chills. No abdominal pain nausea or vomiting. No history of congestive heart failure. Says that he was just like his cough to go away. Related Data Previous Rx's Medication Instructions Recorded mirtazapine 15 mg tablet 15 mg PO BEDTIME #90 tabs 09/15/23 amlodipine 5 mg tablet 5 mg PO DAILY #90 tabs 12/21/23 carvedilol 6.25 mg tablet 6.25 mg PO BID #180 tabs 12/21/23 sildenafil 100 mg tablet (Viagra) 100 mg PO DAILY PRN sexual 04/27/24 activity #30 tabs losartan 100 mg tablet 100 mg PO DAILY #90 tabs 05/25/24 tamsulosin 0.4 mg capsule 0.4 mg PO BEDTIME #90 caps 06/14/24 levothyroxine 100 mcg tablet 100 mcg PO DAILY #90 tabs 08/22/24 rosuvastatin 5 mg tablet 5 mg PO DAILY #90 tabs 08/22/24 Allergies Allergy/AdvReac Type Severity Reaction Status Date / Time lisinopril AdvReac Intermediate Cough Verified 08/25/24 11:07 prednisone AdvReac Intermediate ITCHING Uncoded 08/25/24 11:07 Patient History Medical History Acquired hypothyroidism Allergic rhinitis Alopecia Atypical chest pain BPH w urinary obs/LUTS BPPV (benign paroxysmal positional vertigo) Bullous pemphigoid Cough Depression, recurrent Diffuse cellulitis of face Erectile dysfunction Essential hypertension Fractures Generalized anxiety disorder Kidney stones Measles Mixed hyperlipidemia Venous (peripheral) insufficiency Social History details: (Sendy), 4 sons, retired alcohol intake frequency: holidays/special occasions only Exam Initial Vital Signs Initial Vital Signs: Vital Signs Temperature 97.7 F 09/02/24 07:56 Pulse Rate 50 L 09/02/24 07:56 Respiratory Rate 20 09/02/24 07:56 Blood Pressure 112/55 L 09/02/24 07:56 Pulse Oximetry 94 09/02/24 07:56 Oxygen Delivery Method Room Air 09/02/24 07:56 GENERAL: Alert pleasant 88-year-old male and in no acute distress. HEENT: Head atraumatic,EOMI, pupils reactive, face symmetric, moist mucous membranes CARDIOVASCULAR: Regular rate and rhythm without murmurs, rubs or gallops. RESPIRATORY: Coarse breath sounds bilaterally no significant wheezing definitely coughing with deep breathing ABDOMEN: Soft, nontender. Normoactive bowel sounds all 4 quadrants. No guarding or rebound. EXTREMITIES: Normal range of motion, no clubbing or edema. Neurovascularly intact NEUROLOGICAL: Alert and oriented x4.Normal gait and speech. Cranial nerves II through XII grossly intact. SKIN: Warm, dry, no laceration, no petechiae, no rashes or lesions. Course Orders Ordered: ED Orders 09/02/24 07:55 Chest [XR chest 1V] Stat EKG-12 Lead Stat 09/02/24 08:10 BNP [NT-proBNP (BNP-Adult 18+)] Stat CBC Auto Diff [Complete Blood Count AUTO DIFF] Stat CMP [Comprehensive Metabolic Panel] Stat Lactate (Lactic Acid) Stat Procalcitonin Stat Troponin & CK Cardiac Panel Stat 09/02/24 08:20 Covid-19 + FLU A/B + RSV - PCR Stat 09/02/24 08:35 Blood Culture Stat 09/02/24 09:33 CT angio chest PE protocol Stat 09/02/24 10:04 D Dimer Stat Discontinued Medications Albuterol/Ipratropium (Albuterol/Ipratropium 3 Ml Ampul) 3 ml INH NOW ONE Stop: 09/02/24 08:34 Last Admin: 09/02/24 08:54 Dose: 3 ml Documented By: SAT Ceftriaxone Sodium 1,000 mg/ (Sodium Chloride) 100 mls @ 200 mls/hr IV NOW ONE Stop: 09/02/24 10:37 Last Infusion: 09/02/24 11:18 Dose: Infused Documented By: Admin: 09/02/24 10:46 Dose: 200 mls/hr Documented By: RB Azithromycin 500 mg/ Dextrose 250 mls @ 250 mls/hr IV NOW ONE Stop: 09/02/24 10:37 Last Admin: 09/02/24 11:23 Dose: 250 mls/hr Documented By: CTS Vital Signs Vital signs: Vital Signs - 8 hr 09/02/24 07:56 09/02/24 08:02 09/02/24 08:05 Temperature 97.7 F Pulse Rate 50 L 47 L Respiratory Rate 20 Blood Pressure 112/55 L 127/60 Pulse Oximetry 94 94 Oxygen Delivery Method Room Air Oxygen Flow Rate Fraction of Inspired Oxygen 09/02/24 08:05 09/02/24 08:30 09/02/24 08:31 Temperature Pulse Rate 54 L 52 L 53 L Respiratory Rate 17 15 13 Blood Pressure Pulse Oximetry 92 94 93 Oxygen Delivery Method Nasal Cannula Nasal Cannula Nasal Cannula Oxygen Flow Rate 2 2 2 Fraction of Inspired Oxygen 09/02/24 08:31 09/02/24 08:54 09/02/24 09:00 Temperature Pulse Rate 62 46 L Respiratory Rate 16 12 Blood Pressure 114/58 L Pulse Oximetry 91 92 Oxygen Delivery Method Nasal Cannula Nasal Cannula Oxygen Flow Rate 2 2 Fraction of Inspired Oxygen 28 09/02/24 09:00 09/02/24 09:30 09/02/24 09:30 Temperature Pulse Rate 42 L Respiratory Rate 12 Blood Pressure 122/66 127/61 Pulse Oximetry 87 L Oxygen Delivery Method Room Air Oxygen Flow Rate Fraction of Inspired Oxygen 09/02/24 10:00 09/02/24 10:30 Temperature Pulse Rate 43 L 43 L Respiratory Rate 12 15 Blood Pressure Pulse Oximetry 92 91 Oxygen Delivery Method Nasal Cannula Nasal Cannula Oxygen Flow Rate 2 2 Fraction of Inspired Oxygen MDM - URI/Sore Throat Lab Data 09/02/24 08:10 09/02/24 08:10 Labs: Lab Results 09/02/24 09/02/24 09/02/24 Range/Units 08:10 08:20 10:04 WBC 5.2 (4.5-11.0) X10^3/uL RBC 4.36 L (4.5-5.9) X10^6/uL Hgb 14.5 (13.5-17.5) g/dL Hct 42.8 (41-53) % MCV 98.2 (80-100) fL MCH 33.3 (26-34) PG MCHC 33.9 (30-36) % RDW 13.8 (11.6-14.8) % Plt Count 192 (150-400) X10^3/uL Neut % (Auto) 68.0 (50-75) % Lymph % (Auto) 15.5 L (25-40) % [place] % (Auto) 11.3 (3-14) % Eos % (Auto) 4.2 H (2-4) % Baso % (Auto) 1.0 (0-2) % Neut # (Auto) 3600 (1739-9021) /uL Lymph # (Auto) 800 L (0196-4575) /uL [place] # (Auto) 600 (0-900) /uL Eos # (Auto) 200 (0-450) /uL Baso # (Auto) 0 (0-100) /uL D-Dimer 665 H (<500) ng/ml Sodium 137 (137-145) mmol/L Potassium 4.4 (3.4-5.1) mmol/L Chloride 106 (98-107) mmol/L Carbon Dioxide 26 (22-32) mmol/L BUN 19 (9-20) mg/dL Creatinine 1.15 (0.66-1.25) mg/dL Estimated GFR > 60 (>60) mL/min BUN/Creatinine Ratio 16.5 (6-22) Glucose 102 H (70-99) mg/dL Lactate 1.1 (0.7-2.1) mmol/L Calcium 8.6 (8.4-10.2) mg/dL Total Bilirubin 0.7 (0.2-1.3) mg/dL AST 36 (17-59) IU/L ALT 28 (<50) IU/L Alkaline Phosphatase 73 (38-126) U/L Total Creatine Kinase 67 (55-170) U/L Troponin I < 0.012 (0.01-0.034) ng/mL NT-Pro-B Natriuret Pep 332 (<450) pg/mL Total Protein 6.4 (6.3-8.2) g/dL Albumin 3.8 (3.5-5.0) g/dL Globulin 2.6 (1.7-4.1) g/dL Albumin/Globulin Ratio 1.5 (1.0-2.8) Procalcitonin 0.060 (<0.5) ng/mL SARS-CoV-2 (PCR) Negative (Negative) Influenza A (RT-PCR) Flu a negative (NEGATIVE) Influenza B (RT-PCR) Flu b negative (NEGATIVE) RSV (PCR) Negative (Negative) Imaging Data Chest x-ray: Radiologist's Impression: PROCEDURE: XR CHEST 1V INDICATIONS: short of breath TECHNIQUE: One view of the chest was acquired. COMPARISON: [facility], , XR CHEST 2V, 08/25/2024, 11:05. [facility], XR CHEST 1V, 03/05/2024, 9:26. [facility], XR CHEST 1V, 04/21/2023, 9:17. [facility], CHEST 2 VIEW, 02/16/2015, 9:10. FINDINGS: Surgical changes and devices: None. Lungs and pleura: Left basilar atelectasis. No pleural effusions or pneumothorax. Mediastinum: Mediastinal contours appear normal. Heart size is normal. Bones and chest wall: No suspicious bony lesions. Overlying soft tissues appear unremarkable. IMPRESSION: Left basilar atelectasis. Otherwise, no acute cardiothoracic process. Dictated by: Tomy Garcia M.D. on 09/02/2024 at 8:55 CT scan - chest: Radiologist's Impression: PROCEDURE: CT ANGIO CHEST PE PROTOCOL INDICATIONS: hypoxia TECHNIQUE: After the administration of intravenous contrast, 2 mm thick sections acquired from the pulmonary apices to the posterior costophrenic angles. 3-dimensional maximum intensity projection (MIP) coronal and sagittal reformats were then acquired through the thorax. For radiation dose reduction, the following was used: automated exposure control, adjustment of mA and/or kV according to patient size. COMPARISON: [facility], , XR CHEST 1V, 09/02/2024, 7:58. FINDINGS: Image quality: There is streak artifact seen through the level of the shoulders. Pulmonary arteries: Pulmonary arteries are normal in size, and demonstrate no intraluminal filling defects to suggest central pulmonary embolism. Lower Neck: No enlarged lymph nodes. Thyroid: The thyroid is small in size. Axillae: No enlarged lymph nodes. Chest Wall: Unremarkable. Bones: Age-appropriate bony degenerative changes are seen. Lungs and Pleura: No pneumothorax or pleural effusions. Mild dependent atelectasis can be seen. No consolidation or suspicious nodules. Heart: Heart size is normal. No pericardial effusion. There is mild coronary artery calcification. Thoracic Vessels: No aortic aneurysm. Mediastinum and Teresa: No enlarged lymph nodes. Esophagus: No wall thickening. No hiatal hernia. Upper Abdomen: Visualized upper abdomen solid organs and bowel loops appear normal. IMPRESSION: No pulmonary embolus. Mild dependent atelectasis can be seen. Additional findings: Mild coronary artery calcification Dictated by: Myron Hanna M.D. on 09/02/2024 at 9:10 ECG Data Attestation: I personally reviewed and interpreted this ECG as follows: Prior ECG tracings: available for review Interpretation: Sinus rhythm rate 57 NE interval 256 QRS 92 QTC 401 definite sinus arrhythmia which is similar to previous EKGs no acute ischemic changes first-degree AV block was present previously. MDM Narrative Medical decision making narrative: MDM CC: Cough shortness of breath Complicating co-morbidities: Hypertension hyperlipidemia hypothyroid Data collected from: Patient Medical records reviewed: Previous PCP records and ED visits Differential considered: Pneumonia viral illness congestive heart failure reactive airway disease acute coronary syndrome Exam documented above, pertinent findings include: Coarse breath sounds bilaterally without significant tachypnea or respiratory distress abdomen is soft no evidence of peripheral edema or fluid overload appears well and nontoxic Lab Test results independently reviewed as above. Pertinent findings: CBC no significant leukocytosis or anemia WBC is 5.2 CMP no electrolyte abnormality no CONG lactate 1.1 Procalcitonin 0.06 Troponin negative, BNP 3 3 2 Viral panel negative Independently reviewed EKG as above Sinus arrhythmia rate 57 similar to previous EKGs no ischemia Imaging studies independently reviewed: Left basilar atelectasis no consolidation CT angio no pulmonary embolus atelectasis present Consultations: Dr. Scott accepts patient Treatments: Albuterol Re-evaluations: Patient reports no significant change after albuterol. He was noted to be 90-91% on room air sometimes requiring 1-2 L of oxygen. He says that he has been more sedentary over the last 1-2 weeks because with activity he starts coughing more. So he has decreased his activity. Adding on D-dimer Discussion: Patient 88-year-old male presenting today with ongoing upper respiratory symptoms. Reports that he has had a cough for at least a couple of weeks. He said decreased activity over last 1 week. He was noted to be mildly hypoxic. Chest x-ray shows some atelectasis but no significant consolidation. Blood work is overall reassuring no significant leukocytosis or lactic acid or sign of spit severe sepsis. No evidence of congestive heart failure PE was ruled out with CT angio. He did not have any significant relief with albuterol. Discharge Plan Departure Patient Disposition: Admitted as Observation Clinical Impression: Atypical pneumonia Admit Date/Time: 09/02/24 10:48 Admit Provider: Julio Scott V
[2024-09-02 08:28] LABS: Lactate (Lactic Acid) 1.1 mmol/L (0.7-2.1)
[2024-09-02 08:29] LABS: Alanine Aminotransferase 28 IU/L (<50); Albumin 3.8 g/dL (3.5-5.0); Albumin Globulin Ratio 1.5 (1.0-2.8); Alkaline Phosphatase 73 U/L (38-126); Aspartate Aminotransferase 36 IU/L (17-59); BUN Creatinine Ratio 16.5 (6-22); Bilirubin Total 0.7 mg/dL (0.2-1.3); Blood Urea Nitrogen 19 mg/dL (9-20); Calcium 8.6 mg/dL (8.4-10.2); Carbon Dioxide 26 mmol/L (22-32); Chloride 106 mmol/L (98-107); Creatine Kinase 67 U/L (55-170); Estimated Glomerular Filt Rate > 60 mL/min (>60); Globulin 2.6 g/dL (1.7-4.1); Glucose 102 mg/dL (70-99); HEMOLYSIS < 15 (0-50); Potassium 4.4 mmol/L (3.4-5.1); Sodium 137 mmol/L (137-145); Total Protein 6.4 g/dL (6.3-8.2)
[2024-09-02 08:41] LABS: NT-proBNP (BNP-Adult 18+) 332 pg/mL (<450); Troponin I < 0.012 ng/mL (0.01-0.034)
[2024-09-02] MEDS: ALBUTEROL/IPRATROPIUM 3 ML AMPUL INH (08:54)
[2024-09-02 09:02] LABS: Influenza A - CEPHEID Flu A NEGATIVE (NEGATIVE); Influenza B - CEPHEID Flu B NEGATIVE (NEGATIVE); Respiratory Syncytial Virus Negative (Negative)
[2024-09-02 09:03] LABS: COVID-19 CEPHEID 4-PLEX PCR Negative (Negative)
--- NOTE | 2024-09-02 09:33 | DI.CT.S_ITS ---
PROCEDURE: CT ANGIO CHEST PE PROTOCOL INDICATIONS: hypoxia TECHNIQUE: After the administration of intravenous contrast, 2 mm thick sections acquired from the pulmonary apices to the posterior costophrenic angles. 3-dimensional maximum intensity projection (MIP) coronal and sagittal reformats were then acquired through the thorax. For radiation dose reduction, the following was used: automated exposure control, adjustment of mA and/or kV according to patient size. COMPARISON: [facility], CR, XR CHEST 1V, 09/02/2024, 7:58. FINDINGS: Image quality: There is streak artifact seen through the level of the shoulders. Pulmonary arteries: Pulmonary arteries are normal in size, and demonstrate no intraluminal filling defects to suggest central pulmonary embolism. Lower Neck: No enlarged lymph nodes. Thyroid: The thyroid is small in size. Axillae: No enlarged lymph nodes. Chest Wall: Unremarkable. Bones: Age-appropriate bony degenerative changes are seen. Lungs and Pleura: No pneumothorax or pleural effusions. Mild dependent atelectasis can be seen. No consolidation or suspicious nodules. Heart: Heart size is normal. No pericardial effusion. There is mild coronary artery calcification. Thoracic Vessels: No aortic aneurysm. Mediastinum and Teresa: No enlarged lymph nodes. Esophagus: No wall thickening. No hiatal hernia. Upper Abdomen: Visualized upper abdomen solid organs and bowel loops appear normal. IMPRESSION: No pulmonary embolus. Mild dependent atelectasis can be seen. Additional findings: Mild coronary artery calcification Dictated by: Myron Hanna M.D. on 09/02/2024 at 9:10 Approved by: Myron Hanna M.D. on 09/02/2024 at 9:13
[2024-09-02 10:23] LABS: D Dimer 665 ng/ml (<500)
[2024-09-02] MEDS: cefTRIAXone 1,000 MG in SODIUM CHLORIDE 0.9% 100 ML 200 MG IV (10:46)
[2024-09-02] MEDS: AZITHROMYCIN 500 MG in DEXTROSE 5% IN WATER 250 ML 250 MG IV (11:23)
--- NOTE | 2024-09-02 11:28 | P.HP_ITS ---
History of Present Illness History of Present Illness Date Patient Seen: 09/02/24 Time Patient Seen: 12:04 Chief complaint: Dx w/bronchitis 1wk ago; coughing, congestion. Narrative: 88-year-old man under the primary care of Dr. Julio Scott presents with 2 weeks of coughing, sore throat, wheezing and shortness of breath. He notes a tendency to recurrent bronchitis. He was seen in the walk-in clinic on 08/25/2024 with a chest x-ray at that time showing peribronchial cuffing. He tested negative for COVID, flu, RSV and strep at that time. He was treated symptomatically with OTC cough suppressants. He feels he has not improved and developed increased shortness of breath and presented to the emergency department where he was found to have oxygen to 87% on room air, responding to supplemental oxygen therapy, but not helped by inhaled bronchodilators. [facility] Medical History Acquired hypothyroidism Allergic rhinitis Alopecia Atypical chest pain BPH w urinary obs/LUTS BPPV (benign paroxysmal positional vertigo) Bullous pemphigoid Cough Depression, recurrent Diffuse cellulitis of face Erectile dysfunction Essential hypertension Fractures Generalized anxiety disorder Kidney stones Measles Mixed hyperlipidemia Venous (peripheral) insufficiency Social History details: (Sendy), 4 sons, retired household members: spouse Smoking Status: Never smoker alcohol intake: current Meds Home Medications and Allergies Home Medications Medication Instructions Recorded Confirmed Type mirtazapine 15 mg tablet 15 mg PO BEDTIME #90 tabs 09/15/23 09/02/24 Rx amlodipine 5 mg tablet 5 mg PO DAILY #90 tabs 12/21/23 09/02/24 Rx carvedilol 6.25 mg tablet 6.25 mg PO BID #180 tabs 12/21/23 09/02/24 Rx sildenafil 100 mg tablet (Viagra) 100 mg PO DAILY PRN sexual 04/27/24 09/02/24 Rx activity #30 tabs losartan 100 mg tablet 100 mg PO DAILY #90 tabs 05/25/24 09/02/24 Rx tamsulosin 0.4 mg capsule 0.4 mg PO BEDTIME #90 caps 06/14/24 09/02/24 Rx levothyroxine 100 mcg tablet 100 mcg PO DAILY #90 tabs 08/22/24 09/02/24 Rx rosuvastatin 5 mg tablet 5 mg PO DAILY #90 tabs 08/22/24 09/02/24 Rx Allergies Allergy/AdvReac Type Severity Reaction Status Date / Time lisinopril AdvReac Intermediate Cough Verified 08/25/24 11:07 prednisone AdvReac Intermediate ITCHING Uncoded 08/25/24 11:07 Review of Systems Review of Systems ROS: Yes All systems reviewed with the patient and are negative except as otherwise documented Exam Vital Signs (past 8 hours): - 09/02/24 07:56 09/02/24 08:02 09/02/24 08:05 Temperature 97.7 F Pulse Rate 50 L 47 L Respiratory Rate 20 Blood Pressure 112/55 L 127/60 Pulse Oximetry 94 94 Oxygen Delivery Method Room Air Oxygen Flow Rate Fraction of Inspired Oxygen 09/02/24 08:05 09/02/24 08:30 09/02/24 08:31 Temperature Pulse Rate 54 L 52 L 53 L Respiratory Rate 17 15 13 Blood Pressure Pulse Oximetry 92 94 93 Oxygen Delivery Method Nasal Cannula Nasal Cannula Nasal Cannula Oxygen Flow Rate 2 2 2 Fraction of Inspired Oxygen 09/02/24 08:31 09/02/24 08:54 09/02/24 09:00 Temperature Pulse Rate 62 46 L Respiratory Rate 16 12 Blood Pressure 114/58 L Pulse Oximetry 91 92 Oxygen Delivery Method Nasal Cannula Nasal Cannula Oxygen Flow Rate 2 2 Fraction of Inspired Oxygen 28 09/02/24 09:00 09/02/24 09:30 09/02/24 09:30 Temperature Pulse Rate 42 L Respiratory Rate 12 Blood Pressure 122/66 127/61 Pulse Oximetry 87 L Oxygen Delivery Method Room Air Oxygen Flow Rate Fraction of Inspired Oxygen 09/02/24 10:00 09/02/24 10:30 Temperature Pulse Rate 43 L 43 L Respiratory Rate 12 15 Blood Pressure Pulse Oximetry 92 91 Oxygen Delivery Method Nasal Cannula Nasal Cannula Oxygen Flow Rate 2 2 Fraction of Inspired Oxygen Fraction of Inspired Oxygen 28 SaO2/FiO2 Ratio 325 Oxygen Delivery Method Nasal Cannula Oxygen Flow Rate 2 Narrative Exam Narrative: GENERAL: This is a well-nourished, well-developed patient, in no apparent distress. HEAD: Atraumatic. Normocephalic. No temporal or scalp tenderness. EYES: Pupils equal round and reactive. Extraocular motions intact. No scleral icterus. No injection or drainage. ENT: Mucous membranes pink and moist. NECK: Trachea midline. No JVD, bruits or lymphadenopathy. Supple, nontender, no meningeal signs. CARDIOVASCULAR: Regular rate and rhythm without murmurs, gallops, or rubs. RESPIRATORY: Coarse scattered bilateral rhonchi, mid to end-expiratory wheezes. GASTROINTESTINAL: Abdomen soft, non-tender, nondistended. EXTREMITIES: No clubbing, cyanosis, or edema. BACK: Nontender without deformity or crepitance. No flank tenderness. NEUROLOGIC: Alert, oriented, speech fluent, full upper and lower motor strength, no focal deficits evident. DERMATOLOGIC: No rashes or skin lesions. Objective ECG Impression: Sinus bradycardia with marked sinus arrhythmia with 1st degree AV block at 57 beats per minute Imaging *: Radiologist's impression: 1. Chest x-ray 09/02/2024: Left basilar atelectasis. Otherwise, no acute cardiothoracic process. 2. Chest CT angiogram 09/02/2024: No pulmonary embolus. Mild dependent atelectasis can be seen. Labs 09/02/24 08:10 09/02/24 08:10 Labs: Laboratory Results - last 24 hr 09/02/24 09/02/24 09/02/24 08:10 08:20 10:04 WBC 5.2 RBC 4.36 L Hgb 14.5 Hct 42.8 MCV 98.2 MCH 33.3 MCHC 33.9 RDW 13.8 Plt Count 192 Neut % (Auto) 68.0 Lymph % (Auto) 15.5 L [place] % (Auto) 11.3 Eos % (Auto) 4.2 H Baso % (Auto) 1.0 Neut # (Auto) 3600 Lymph # (Auto) 800 L [place] # (Auto) 600 Eos # (Auto) 200 Baso # (Auto) 0 D-Dimer 665 H Sodium 137 Potassium 4.4 Chloride 106 Carbon Dioxide 26 BUN 19 Creatinine 1.15 Estimated GFR > 60 BUN/Creatinine Ratio 16.5 Glucose 102 H Lactate 1.1 Calcium 8.6 Total Bilirubin 0.7 AST 36 ALT 28 Alkaline Phosphatase 73 Total Creatine Kinase 67 Troponin I < 0.012 NT-Pro-B Natriuret Pep 332 Total Protein 6.4 Albumin 3.8 Globulin 2.6 Albumin/Globulin Ratio 1.5 Procalcitonin 0.060 SARS-CoV-2 (PCR) Negative Influenza A (RT-PCR) Flu a negative Influenza B (RT-PCR) Flu b negative RSV (PCR) Negative Assessment & Plan Assessment & Plan narrative: 1. Acute bronchitis, possible early pneumonia. 2. Acute bronchospasm due to 1. 3. Acute hypoxic respiratory failure due to 1 and 2. 4. Hypertension. 5. Hyperlipidemia. 6. Hypothyroidism. 7. BPH. Plan: -admit to observation -IV ceftriaxone azithromycin -IV steroids -supplemental oxygen DVT prophylaxis: Lovenox Code status: Full code. His designated medical decision maker is his Karishma, with 1st alternate Irvin Saleh (his has dementia). Disposition: Anticipate discharge tomorrow if stable. Quality MIPS - Admit I confirm the patient?s Advance Care Plan is present, Code status is documented, Surrogate decision maker is in patient?s record [If Yes, STOP here]: Yes [facility] - Meds 'Current medications' to include all prescriptions, [id number] products, herbals, cannabis/cannabidiol products, and vitamin/mineral/dietary (nutritional) supplements. I have utilized all available resources to obtain, update, or review the patient?s current medications. [If Yes, STOP here]: Yes [employer] Document charge(s): No Charge Codes Initial inpatient/observation care: [id number]
[2024-09-02] MEDS: methylPREDNISolone 125 MG/2 ML VIAL IV (13:59)
[2024-09-02] MEDS: ENOXAPARIN 40 MG/0.4 ML SYRINGE SUBCUT (13:59)
[2024-09-02] MEDS: methylPREDNISolone 125 MG/2 ML VIAL 80 MG IV (20:59)
[2024-09-02] MEDS: carvediloL 3.125 MG TABLET 6.25 MG PO (21:00)
[2024-09-02] MEDS: MIRTAZAPINE 15 MG TABLET PO (21:00)
[2024-09-02] MEDS: TAMSULOSIN 0.4 MG CAPSULE PO (21:01)
[2024-09-03 01:00] VITALS: BP 140/66; PULSE 84; RESP 19; TEMP 37; O2SAT 96
[2024-09-03] MEDS: methylPREDNISolone 125 MG/2 ML VIAL 80 MG IV (05:28)
[2024-09-03] MEDS: LEVOTHYROXINE 100 MCG TABLET PO (05:29)
[2024-09-03] MEDS: ATORVASTATIN 20 MG TABLET 10 MG PO (08:17)
[2024-09-03 08:18] VITALS: BP 176/77; PULSE 85
[2024-09-03] MEDS: LOSARTAN 50 MG TABLET 100 MG PO (08:18)
[2024-09-03 08:19] VITALS: BP 176/77; PULSE 85
[2024-09-03] MEDS: AMLODIPINE 5 MG TABLET PO (08:19)
[2024-09-03] MEDS: carvediloL 3.125 MG TABLET 6.25 MG PO (08:19)
[2024-09-03] MEDS: ENOXAPARIN 40 MG/0.4 ML SYRINGE SUBCUT (08:20)
[2024-09-03 09:00] VITALS: BP 176/77; PULSE 89; RESP 17; TEMP 36.1; O2SAT 93
--- NOTE | 2024-09-03 09:30 | P.DS_ITS ---
History of Present Illness History of Present Illness Date Patient Seen: 09/03/24 Time Patient Seen: 09:10 Chief complaint: Dx w/bronchitis 1wk ago; coughing, congestion. Narrative: 88-year-old man under the primary care of Dr. Julio Scott presents with 2 weeks of coughing, sore throat, wheezing and shortness of breath. He notes a tendency to recurrent bronchitis. He was seen in the walk-in clinic on 08/25/2024 with a chest x-ray at that time showing peribronchial cuffing. He tested negative for COVID, flu, RSV and strep at that time. He was treated symptomatically with OTC cough suppressants. He feels he has not improved and developed increased shortness of breath and presented to the emergency department where he was found to have oxygen to 87% on room air, responding to supplemental oxygen therapy, but not helped by inhaled bronchodilators. Discharge Providers Provider Date of admission: 09/02/24 10:48 Discharge Date: 09/03/24 Primary care physician: Julio Scott MD Discharge provider: Julio Scott MD Summary Hospital Course Discharge Diagnosis: 1. Acute bronchitis, possible early pneumonia. 2. Acute bronchospasm due to 1. 3. Acute hypoxic respiratory failure due to 1 and 2. 4. Hypertension. 5. Hyperlipidemia. 6. Hypothyroidism. 7. BPH. Hospital Course: The patient was admitted to observation and treated with IV antibiotics, IV methylprednisolone and supplemental oxygen. He improved significantly over the 1st 24 hours and was weaned off oxygen. He had persistent cough and rhonchorous breath sounds but states this was much improved. He did not benefit from bronchodilator therapy. Workup prior to admission and blood cultures obtained during hospitalization were unremarkable at the time of discharge, showing no growth. Patient was interested in discharge home with close outpatient follow- up. Status at Discharge Cognitive/behavioral status at discharge: oriented Functional status at discharge: independent ambulation Overall status at discharge: patient is progressing back to baseline Time Spent with Patient Time spent: Less than 30 minutes Exam Vital Signs (past 8 hours): - 09/03/24 08:18 09/03/24 08:19 Pulse Rate 85 85 Blood Pressure 176/77 H 176/77 H Fraction of Inspired Oxygen 28 SaO2/FiO2 Ratio 325 Oxygen Delivery Method Room Air Oxygen Flow Rate 0 Narrative Exam Narrative: GENERAL: This is a well-nourished, well-developed patient, in no apparent distress. EYES: Pupils equal round and reactive. Extraocular motions intact. No scleral icterus. No injection or drainage. ENT: Mucous membranes pink and moist. NECK: Trachea midline. No JVD, bruits or lymphadenopathy. Supple, nontender, no meningeal signs. CARDIOVASCULAR: Regular rate and rhythm without murmurs, gallops, or rubs. RESPIRATORY: Coarse scattered bilateral rhonchi, no wheezes. GASTROINTESTINAL: Abdomen soft, non-tender, nondistended. EXTREMITIES: No clubbing, cyanosis, or edema. NEUROLOGIC: Alert, oriented, speech fluent, full upper and lower motor strength, no focal deficits evident. DERMATOLOGIC: No rashes or skin lesions. Objective ECG Impression: Sinus bradycardia with marked sinus arrhythmia with 1st degree AV block at 57 beats per minute Imaging *: Radiologist's impression: 1. Chest x-ray 09/02/2024: Left basilar atelectasis. Otherwise, no acute cardiothoracic process. 2. Chest CT angiogram 09/02/2024: No pulmonary embolus. Mild dependent atelectasis can be seen. Labs 09/02/24 08:10 09/02/24 08:10 Labs: Laboratory Results - last 24 hr 09/02/24 09/02/24 08:10 10:04 D-Dimer 665 H Procalcitonin 0.060 PFSH Medical History Acquired hypothyroidism Allergic rhinitis Alopecia Atypical chest pain BPH w urinary obs/LUTS BPPV (benign paroxysmal positional vertigo) Bullous pemphigoid Cough Depression, recurrent Diffuse cellulitis of face Erectile dysfunction Essential hypertension Fractures Generalized anxiety disorder Kidney stones Measles Mixed hyperlipidemia Venous (peripheral) insufficiency Social History details: (Sendy), 4 sons, retired household members: spouse Smoking Status: Never smoker alcohol intake: current Discharge Plan Discharge Plan Patient Disposition: Home Provider Discharge Comment: Followup with Dr. Scott 1 week; Use OTC Mucinex/Robitussin (guaifenesin) as needed for cough Discharge orders & Medications Prescriptions: New methylprednisolone 8 mg tablet 8 mg PO DAILY Qty: 20 1RF Rx Instructions: 4 tablets daily x 2 days, then 3 tablets daily x 2 days, then 2 tablets daily x 2 days, then 1 tablets daily x 2 days, then stop azithromycin 250 mg tablet 250 mg PO DAILY Qty: 4 0RF Continued mirtazapine 15 mg tablet 15 mg PO BEDTIME Qty: 90 3RF sildenafil [Viagra] 100 mg tablet 100 mg PO DAILY PRN (Reason: sexual activity) Qty: 30 5RF Rx Instructions: administer 30 minutes to 4 hours before activity losartan 100 mg tablet 100 mg PO DAILY Qty: 90 3RF tamsulosin 0.4 mg capsule 0.4 mg PO BEDTIME Qty: 90 3RF levothyroxine 100 mcg tablet 100 mcg PO DAILY Qty: 90 0RF rosuvastatin 5 mg tablet 5 mg PO DAILY Qty: 90 0RF amlodipine 5 mg tablet 5 mg PO DAILY Qty: 90 3RF carvedilol 6.25 mg tablet 6.25 mg PO BID Qty: 180 3RF Rx Instructions: must administer with a meal/food Follow up/Referrals: Julio Scott MD [Primary Care Provider] - Visit Report/Discharge Packet Stand Alone Forms: Patient Portal/API, Stroke Signs & Symptoms Discharge Data Primary Care Provider: Julio Scott V Attending Provider: Julio Scott V Admit Date/Time: 09/02/24 10:48 Quality MIPS - Admit I confirm the patient?s Advance Care Plan is present, Code status is documented, Surrogate decision maker is in patient?s record [If Yes, STOP here]: Yes MIPS - Meds 'Current medications' to include all prescriptions, [id number] products, herbals, cannabis/cannabidiol products, and vitamin/mineral/dietary (nutritional) supplements. I have utilized all available resources to obtain, update, or review the patient?s current medications. [If Yes, STOP here]: Yes MIPS - DC The patient has a history of heart transplant or Left Ventricular Assist Device (LVAD). If yes, STOP here.: No The patient has current or prior documentation of left ventricular ejection fraction (LVEF) less than or equal to 40%, or moderate or severely depressed left ventricular systolic function.: No A. The patient was prescribed or already taking an Angiotensin-Converting Enzyme (ANA) Inhibitor, or Angiotensin Receptor Frieda (ARB).: Yes B. The patient was prescribed or already taking a beta-frieda. [If Yes to Both A & B, STOP here]: Yes Patient not prescribed/taking ANA or ARB, no reason given.: No Patient not prescribed/taking beta-frieda, no reason given.: No PROFEE Charge Codes Discharge inpatient/observation: [id number]
[2024-09-03 09:50] VITALS: O2SAT 93
--- NOTE | 2024-09-03 10:31 | PC.NURSE ---
Day shift: DIscharge instructions gone over with patient. All questions answered, patient stated understanding. PIV removed prior to discharge. All belongings with patient. PCT Saturnino escorted patient to exit via wheelchair.
== END 2024-09-03 10:20 | disposition home or self-care (01) ==
LOC: ED 10:47 → AC 10:48
PROVIDERS: Admitting Provider Internal Medicine; Emergency Provider Emergency Medicine; Family Provider Internal Medicine; PCP Internal Medicine; Referring Provider Emergency Medicine; Visit Provider Internal Medicine
DX: J96.01 Acute respiratory failure with hypoxia (principal); I10 Essential (primary) hypertension; F41.9 Anxiety disorder, unspecified; F32.A Depression, unspecified; E03.9 Hypothyroidism, unspecified; E78.5 Hyperlipidemia, unspecified; N40.0 Benign prostatic hyperplasia without lower urinary tract symptoms; Z11.52 Encounter for screening for COVID-19
CPT/HCPCS: 0241U; 36415; 71045; 71275; 80053; 82550; 83605; 83880; 84145; 84484; 85025; 85379; 87040; 93005; 93010; 94640; 96365; 96367; 96372; 96375; 96376; 99285; G0378; J0696; J1650; J2919; Q9967

== ENCOUNTER → 2024-09-11 10:02 | Outpatient (CLI) | payer MEDICARE, SELFPAY ==
[2024-09-02 11:51] VITALS: BMI 29.1
[2024-09-11 10:42] LABS: Cholesterol 178 mg/dL (140-199); HDL Cholesterol 56 mg/dL (40-60); LDL Cholesterol Calculated 100 mg/dL (<100); Triglycerides 111 mg/dL (35-150)
[2024-09-11 11:13] LABS: Prostate Specific Antigen 4.12 ng/mL (0.10-4.00)
== END ==
PROVIDERS: Family Provider Internal Medicine; PCP Internal Medicine; Referring Provider Internal Medicine; Visit Provider Internal Medicine
DX: E78.2 Mixed hyperlipidemia (principal); N40.1 Benign prostatic hyperplasia with lower urinary tract symptoms; N13.8 Other obstructive and reflux uropathy
CPT/HCPCS: 36415; 80061; 84153

== ENCOUNTER → 2025-03-20 11:21 | Outpatient (CLI) | payer MEDICARE, SELFPAY ==
[2024-09-02 11:51] VITALS: BMI 29.1
[2025-03-20 12:18] LABS: Hematocrit 42.9 % (41-53); Hemoglobin 14.7 g/dL (13.5-17.5); Mean Corpuscular HGB Conc 34.2 % (30-36); Mean Corpuscular Hemoglobin 33.2 PG (26-34); Mean Corpuscular Volume 97.1 fL (80-100); Platelet Count 167 X10^3/uL (150-400)
[2025-03-20 12:28] LABS: Hemoglobin A1C% w Est Avg Glu 6.1 % (4.0-6.0)
[2025-03-20 12:50] LABS: Blood Urea Nitrogen 16 mg/dL (9-20); Calcium 8.9 mg/dL (8.4-10.2); Carbon Dioxide 26 mmol/L (22-32); Chloride 106 mmol/L (98-107); Estimated Glomerular Filt Rate > 60 mL/min (>60); Glucose 96 mg/dL (70-99); HEMOLYSIS < 15 (0-50); Potassium 4.2 mmol/L (3.4-5.1); Sodium 140 mmol/L (137-145)
[2025-03-20 13:08] LABS: TSH w/ Reflex to FT4 3.20 uIU/mL (0.47-4.68)
[2025-03-20 13:40] LABS: Vitamin B12 Reflex MMA if <400 311 pg/mL (239-931)
[2025-03-26 08:40] LABS: Albumin 3.6 g/dL (2.9-4.4); Alpha-1-Globulin 0.2 g/dL (0.0-0.4); Alpha-2-Globulin 0.5 g/dL (0.4-1.0); Gamma Globulin 1.2 g/dL (0.4-1.8)
== END ==
PROVIDERS: Family Provider Internal Medicine; PCP Internal Medicine; Referring Provider Internal Medicine; Visit Provider Internal Medicine
DX: R73.01 Impaired fasting glucose (principal); I10 Essential (primary) hypertension; E53.8 Deficiency of other specified B group vitamins; E03.9 Hypothyroidism, unspecified; R77.9 Abnormality of plasma protein, unspecified
CPT/HCPCS: 36415; 80048; 82607; 83036; 83921; 84155; 84165; 84443; 85027

== ENCOUNTER 2025-03-24 09:13 | Emergency (ER) | payer MEDICARE, SELFPAY ==
[2024-09-02 11:51] VITALS: BMI 29.1
[2025-03-24] VITALS (16 sets, daily range): BP systolic 131–150; BP diastolic 60–76; PULSE 44–58; RESP 14–20; TEMP 36.8; O2SAT 93–99
--- NOTE | 2025-03-24 09:27 | DI.RAD.S_ITS ---
PROCEDURE: XR CHEST 1V INDICATIONS: Chest Pain TECHNIQUE: One view of the chest was acquired. COMPARISON: [facility], CR, XR CHEST 1V, 09/02/2024, 7:58. FINDINGS: Surgical changes and devices: None. Lungs and pleura: Lungs are clear. No pleural effusions or pneumothorax. Mediastinum: The cardiac contours are within normal limits. The aorta demonstrates calcification and tortuosity. Bones and chest wall: No suspicious bony lesions. Age-appropriate bony degenerative changes are seen. Overlying soft tissues appear unremarkable. IMPRESSION: No acute cardiopulmonary abnormality is seen. Dictated by: Myron Hanna M.D. on 03/24/2025 at 8:53 Approved by: Myron Hanna M.D. on 03/24/2025 at 8:54
--- NOTE | 2025-03-24 09:27 | EKG_ITS ---
[address] [address] Test Date: 2025-03-24 Pat Name: Parveen Saleh Department: Room: Gender: Male Hansard Reporter: FERNANDO : 1935 Requested By: Order Number: [id number] Reading MD: Measurements Intervals [place] Rate: 46 P: 58 WV: 256 QRS: -19 QRSD: 96 T: 31 QT: 440 QTc: 385 Interpretive Statements Sinus bradycardia with 1st degree AV block with premature atrial complexes with aberrant conduction
--- NOTE | 2025-03-24 09:36 | ED_ITS ---
HPI - Dizziness General Chief Complaint: Dizziness Stated Complaint: Vertigo x2days/severity increased overnight Time Seen by Provider: 03/24/25 09:17 History of Present Illness HPI Narrative: 89-year-old gentleman presents with dizziness described as room spinning sensation unrelieved with Kel maneuver for the past 2 days. Patient denies headache, loss of consciousness, blurred vision, chest pain, shortness of breath, nausea, vomiting, diarrhea, weakness, arms, legs, difficulty speaking or swallowing. Other than what is stated 14 point review of system is negative. Related Data Previous Rx's ?Medication ?Instructions ?Recorded sildenafil 100 mg tablet (Viagra) 100 mg PO DAILY PRN sexual 04/27/24 activity #30 tabs losartan 100 mg tablet 100 mg PO DAILY #90 tabs tamsulosin 0.4 mg capsule 0.4 mg PO BEDTIME #90 caps 0 06/14/24 mirtazapine 15 mg tablet 15 mg PO BEDTIME #90 tabs rosuvastatin 5 mg tablet 5 mg PO DAILY #90 tabs 11/23 levothyroxine 100 mcg tablet 100 mcg PO DAILY #90 tabs 12/22/24 carvedilol 6.25 mg tablet 6.25 mg PO BID #180 tabs 03/20 amlodipine 5 mg tablet 5 mg PO DAILY #90 tabs 02/12 meclizine 25 mg tablet 25 mg PO TID #30 tabs Allergies Allergy/AdvReac Type Severity Reaction Status Date / Time lisinopril AdvReac Intermediate Cough Verified 03/24/25 09:39 prednisone AdvReac Intermediate ITCHING Uncoded 03/24/25 09:39 Review of Systems Review of Systems ROS Unobtainable: All systems reviewed & are unremarkable except as noted in HPI and below Patient History Medical History (Updated 03/24/25 @ 13:58 by Marco Parks DO) Polyneuropathy, unspecified Venous (peripheral) insufficiency BPPV (benign paroxysmal positional vertigo) Allergic rhinitis Depression, 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 Erectile dysfunction Generalized anxiety disorder Acquired hypothyroidism Mixed hyperlipidemia Essential hypertension Alopecia Fractures Measles Kidney stones Diffuse cellulitis of face Atypical chest pain Social History details: (Sendy), 4 sons, retired household members: spouse Smoking Status: Never smoker alcohol intake: current alcohol intake frequency: holidays/special occasions only Exam Narrative Exam Narrative: GENERAL: [89] year old patient appears stated age. Well-developed patient, in mild distress. HEAD: Atraumatic. Normocephalic. EYES: Pupils equal round and reactive. Extraocular motions intact. No scleral icterus. No injection or drainage. ENT: Nose without bleeding, purulent drainage. Throat without erythema, tonsillar hypertrophy or exudate. Airway patent. NECK: Trachea midline. Non tender CARDIOVASCULAR: Regular rate and rhythm without murmurs, gallops, or rubs. RESPIRATORY: Clear to auscultation. Breath sounds equal bilaterally. No wheezes, rales, or rhonchi. GASTROINTESTINAL: Abdomen soft, non-tender, nondistended. EXTREMITIES: No edema or joint tenderness. BACK: Nontender without deformity or crepitance. No flank tenderness. NEURO: AOx3. SKIN: No rash or erythema of visible areas Initial Vital Signs Initial Vital Signs: Vital Signs Blood Pressure 144/65 H 03/24/25 09:26 Scores NIH Stroke Scale Level of Conciousness: Alert, keenly responsive Ask month/age: Answers both questions correctly. Open/close eyes, close hand: Performs both tasks correctly Best gaze horizontal: Normal Visual sheehan: No visual loss Facial palsy: Normal symetrical movement Left arm drift: No drift for full 10 sec Right arm drift: No drift for full 10 sec Left leg drift: No drift for full 5 sec Right leg drift: No drift for full 5 sec Limb ataxia: Absent Sensory on face/arms/legs: Normal, no sensory loss Best language: No aphasia, normal Dysarthria: Normal Extinction or inattention: No abnormality Total NIH Stroke scale score: 0 Course Orders Ordered: ED Orders 03/24/25 09:27 XR chest 1V Stat EKG-12 Lead Stat 03/24/25 09:32 Complete Blood Count AUTO DIFF Stat Comprehensive Metabolic Panel Stat Lipase Stat Magnesium Stat NT-proBNP (BNP-Adult 18+) Stat PTT Partial Thromboplastin Billy Stat Prothrombin Time INR Stat TSH [Thyroid Stimulating Hormone] Stat Troponin & CK Cardiac Panel Stat 03/24/25 09:36 CT angio head and neck Stat CT head/brain wo con Stat 03/24/25 11:56 MR head/brain wo con Stat Discontinued Medications Aspirin (Aspirin 81 Mg Chew Tab) 324 mg PO NOW ONE Stop: 03/24/25 09:28 Last Admin: 03/24/25 09:38 Dose: Not Given Documented By: CATE Aspirin (Aspirin Ec 325 Mg Tablet) 325 mg PO NOW ONE Stop: 03/24/25 11:57 Last Admin: 03/24/25 12:13 Dose: 325 mg Documented By: CATE Vital Signs Vital signs: Vital Signs - 8 hr 03/24/25 09:26 03/24/25 09:28 03/24/25 09:30 Temperature Pulse Rate 55 L Respiratory Rate Blood Pressure 144/65 H 132/60 Pulse Oximetry Oxygen Delivery Method 03/24/25 09:30 03/24/25 09:39 03/24/25 10:00 Temperature 98.3 F Pulse Rate 45 L 44 L 48 L Respiratory Rate 16 19 Blood Pressure 132/60 Pulse Oximetry 96 95 Oxygen Delivery Method Room Air 03/24/25 10:04 03/24/25 10:04 03/24/25 10:30 Temperature Pulse Rate 44 L Respiratory Rate 17 Blood Pressure 139/65 146/74 H Pulse Oximetry 98 Oxygen Delivery Method 03/24/25 10:30 03/24/25 11:00 03/24/25 11:01 Temperature Pulse Rate 45 L 51 L Respiratory Rate 16 18 Blood Pressure 150/70 H Pulse Oximetry 97 97 Oxygen Delivery Method 03/24/25 11:01 03/24/25 11:30 03/24/25 11:30 Temperature Pulse Rate 50 L 55 L Respiratory Rate 17 14 Blood Pressure 144/65 H Pulse Oximetry 96 93 Oxygen Delivery Method 03/24/25 12:00 03/24/25 12:00 03/24/25 12:46 Temperature Pulse Rate 58 L Respiratory Rate 14 Blood Pressure 131/61 144/66 H Pulse Oximetry 96 Oxygen Delivery Method 03/24/25 12:46 Temperature Pulse Rate 47 L Respiratory Rate 16 Blood Pressure Pulse Oximetry 99 Oxygen Delivery Method MDM - Dizziness Lab Data 03/24/25 09:32 03/24/25 09:32 Labs: Lab Results 03/24/25 Range/Units 09:32 WBC 4.4 L (4.5-11.0) X10^3/uL RBC 4.19 L (4.5-5.9) X10^6/uL Hgb 14.1 (13.5-17.5) g/dL Hct 40.7 L (41-53) % MCV 97.1 (80-100) fL MCH 33.6 (26-34) PG MCHC 34.6 (30-36) % RDW 14.7 (11.6-14.8) % Plt Count 150 (150-400) X10^3/uL Neut % (Auto) 72.6 (50-75) % Lymph % (Auto) 13.5 L (25-40) % Summers % (Auto) 8.6 (3-14) % Eos % (Auto) 4.1 H (2-4) % Baso % (Auto) 1.2 (0-2) % Neut # (Auto) 3200 (6469-5487) /uL Lymph # (Auto) 600 L (8055-4007) /uL Summers # (Auto) 400 (0-900) /uL Eos # (Auto) 200 (0-450) /uL Baso # (Auto) 100 (0-100) /uL PT 11.3 (9.4-12.5) SECONDS INR 1.0 (0.9-1.3) APTT 25 L (25.1-36.5) SECONDS Sodium 139 (137-145) mmol/L Potassium 4.1 (3.4-5.1) mmol/L Chloride 111 H (98-107) mmol/L Carbon Dioxide 22 (22-32) mmol/L BUN 17 (9-20) mg/dL Creatinine 1.18 (0.66-1.25) mg/dL Estimated GFR 60 (>60) mL/min BUN/Creatinine Ratio 14.4 (6-22) Glucose 110 H (70-99) mg/dL Calcium 8.6 (8.4-10.2) mg/dL Magnesium 1.9 (1.6-2.3) mg/dL Total Bilirubin 0.7 (0.2-1.3) mg/dL AST 26 (17-59) IU/L ALT 16 (<50) IU/L Alkaline Phosphatase 51 (38-126) U/L Total Creatine Kinase 35 L (55-170) U/L Troponin I < 0.012 (0.01-0.034) ng/mL NT-Pro-B Natriuret Pep 252 (<450) pg/mL Total Protein 6.5 (6.3-8.2) g/dL Albumin 3.7 (3.5-5.0) g/dL Globulin 2.8 (1.7-4.1) g/dL Albumin/Globulin Ratio 1.3 (1.0-2.8) Lipase 48 (23-300) U/L TSH 4.63 (0.47-4.68) uIU/mL Imaging Data CT scan - head: Radiologist's Impression: [address] [address] [address] Scan Report Signed Patient: Parveen Saleh MR#: [id number] : 1935 Acct:[id number] Age/Sex: 89 / M Date of Service: 03/24/25 Loc: ED Accession Number: [id number] Procedure: CT head/brain wo con Ordering Provider: Marco Parks D.O. PROCEDURE: CT HEAD/BRAIN WO CON INDICATIONS: dizziness TECHNIQUE: Noncontrast 4.5 mm thick angled axial sections acquired from the foramen magnum to the vertex, with coronal and sagittal reformats. For radiation dose reduction, the following was used: automated exposure control, adjustment of mA and/or kV according to patient size. COMPARISON: [facility], CT, CT HEAD/BRAIN WO CON, 06/13/2020, 13:39. FINDINGS: Image quality: Diagnostic. CSF spaces: Basal cisterns are patent. No extra-axial fluid collections. The ventricles are symmetric in size and shape. Brain: No intracranial bleeds or mass effect. There is cerebral volume loss, with resultant ventricular and sulcal prominence. There are periventricular and deep white matter chronic small vessel ischemic changes. There is intracranial internal carotid artery atherosclerosis. Skull and face: Calvarium and visualized facial bones appear intact, without suspicious lesions. Sinuses: Visualized sinuses and mastoids are clear. IMPRESSION: No acute intracranial pathology. CTA - brain/neck: Radiologist's Impression: [address] [address] [address] Scan Report Signed Patient: Parveen Saleh MR#: [id number] : 1935 Acct:[id number] Age/Sex: 89 / M Date of Service: 03/24/25 Loc: ED Accession Number: [id number] Procedure: CT angio head and neck Ordering Provider: Marco Parks D.O. PROCEDURE: CT ANGIO HEAD AND NECK INDICATIONS: dizziness TECHNIQUE: After the administration of intravenous contrast, 1 mm thick sections acquired from the aortic arch through the [place] of Rangel. 3-dimensional lgwensi-umlajjxhz-njidlmrjpx (MIP) and/or volume rendering reformats were acquired of the central intracranial vasculature and neck separately. For radiation dose reduction, the following was used: automated exposure control, adjustment of mA and/or kV according to patient size. COMPARISON: [facility], CT, CT ANGIO CHEST PE PROTOCOL, 09/02/2024, 9:56. [facility], CT, CT ANGIO HEAD AND NECK, 03/05/2024, 10:16. FINDINGS: Image quality: Diagnostic. Cerebral CT Angiogram: Internal carotid arteries: No acute findings. Intracranial ICA are patent with no significant stenosis. No occlusion. No aneurysm. Anterior cerebral arteries: Unremarkable. No significant stenosis. No occlusion. No aneurysm. Middle cerebral arteries: Unremarkable. No significant stenosis. No occlusion. No aneurysm. Posterior cerebral arteries: Unremarkable. No significant stenosis. No occlusion. No aneurysm. Basilar artery: Unremarkable. No significant stenosis. No occlusion. No aneurysm. Vertebral arteries: Unremarkable as visualized. Dural venous sinuses: Unremarkable given phase of enhancement. Other: Arterial phase appearance of the brain parenchyma is unremarkable. Neck CT Angiogram: Internal carotid arteries: Severe, 80 percent, stenosis of the left proximal common C1, internal carotid artery due to partially calcified and soft atherosclerotic plaque. No significant stenosis of the right ICA No dissection or occlusion. Common carotid arteries: Unremarkable. No significant stenosis. No dissection or occlusion. External carotid arteries: Unremarkable. No occlusion. Vertebral arteries: Unremarkable. No significant stenosis. No dissection or occlusion. Aortic Arch and Mediastinum: Partially visualized aortic arch unremarkable without evidence of aneurysm. Origins of the great vessels unremarkable. Other: Stable ectasia of the distal ascending thoracic aorta, measuring 4.2 cm. IMPRESSION: 1. 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 Recommend vascular surgery referral for further evaluation. 2. No significant intracranial arterial abnormality is seen. 3. 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 Any quantitative measurements of stenosis were performed using NASCET criteria. Dictated by: Liu Faulkner M.D. on 03/24/2025 at 10:26 Extremity x-ray #1: Radiologist's Impression: [facility] [address] [place] [id number] Magnetic Resonance Report Signed Patient: Parveen Saleh MR#: [id number] : 1935 Acct:[id number] Age/Sex: 89 / M Date of Service: 03/24/25 Loc: ED Accession Number: [id number] Procedure: MR head/brain wo con Ordering Provider: Marco Parks D.O. PROCEDURE: MR HEAD/BRAIN WO CON INDICATIONS: dizziness TECHNIQUE: Non-contrast axial T1 spin echo, axial T2 fast spin echo, sagittal and axial FLAIR, coronal T2 fast spin echo, axial gradient echo, axial diffusion and ADC through the brain. COMPARISON: [facility], MR, MR HEAD/BRAIN WO CON, 03/09/2024, 14:04. FINDINGS: Image quality: Excellent. CSF spaces: Ventricles appear symmetric in size and shape. Basal cisterns are patent. No extra-axial fluid collections. Brain: No intracranial bleeds or mass effects. There is cerebral volume loss for age. There are periventricular and deep white matter chronic small vessel ischemic changes. Brainstem appears normal. Diffusion-weighted images show no acute infarct. No chronic ischemic insults. Normal intravascular flow voids are present. Skull and face: Calvarial bone marrow is normal in signal. Orbits are normal. Sinuses: Sinuses and mastoids are clear. IMPRESSION: No findings of acute, subacute, or prior chronic infarction. Chronic findings of mild generalized cerebral volume loss with subtle microvascular ischemic changes in the supratentorial white matter. Dictated by: Liu Faulkner M.D. on 03/24/2025 at 13:46 Approved by: Liu Faulkner M.D. on 03/24/2025 at 13:47 ECG Data Interpretation: Sinus Raj HR 46 IL 256 QRS [address]-t wave change Unchanged from 09/02/24 MDM Narrative Medical decision making narrative: All lab work, vital signs, nurse triage note, medication list, previous ER visits, and all imaging studies reviewed. MRI shows no findings of acute subacute or prior chronic infarction. Chronic findings of mild generalized cerebral volume loss with subtle microvascular ischemic changes in the supratentorial white matter. CT angio and neck showed severe 80% stenosis of the proximal left internal carotid artery recommend vascular surgery referral for further evaluation. Stable ectasia 4.1 cm of the distal ascending thoracic aorta. CT head showed no acute process. Chest x-ray showed no acute process. Case discussed with Dr.Natalie Shamar GONZALEZ neurologist at admitted brain MRI and if no stroke then able to follow up as outpatient for vascular surgery consult in to start on aspirin 81 mg daily. Differential diagnosis central versus peripheral, aneurysm CVA TIA. DC home on aspirin and meclizine rx to follow up with PCP next week. Discharge Plan Departure Patient Disposition: Home Clinical Impression: Dizziness Carotid artery stenosis Qualifiers: Laterality: left Qualified Code(s): I65.22 - Occlusion and stenosis of left carotid artery Instructions: DI for Dizziness-Nonvertigo Activity Restrictions/Additional Instructions: Return with new or worsening symptoms. Please take aspirin 81 mg daily. Follow up with PCP next week call office for appointment. Take medicine as directed for dizziness. Prescriptions: New meclizine 25 mg tablet 25 mg PO TID Qty: 30 0RF No Action sildenafil [Viagra] 100 mg tablet 100 mg PO DAILY PRN (Reason: sexual activity) Qty: 30 5RF Rx Instructions: administer 30 minutes to 4 hours before activity losartan 100 mg tablet 100 mg PO DAILY Qty: 90 3RF tamsulosin 0.4 mg capsule 0.4 mg PO BEDTIME Qty: 90 3RF mirtazapine 15 mg tablet 15 mg PO BEDTIME Qty: 90 3RF rosuvastatin 5 mg tablet 5 mg PO DAILY Qty: 90 1RF levothyroxine 100 mcg tablet 100 mcg PO DAILY Qty: 90 1RF carvedilol 6.25 mg tablet 6.25 mg PO BID Qty: 180 3RF Rx Instructions: must administer with a meal/food amlodipine 5 mg tablet 5 mg PO DAILY Qty: 90 2RF Referrals: Julio Scott MD [Primary Care Provider, Internal Medicine] Stand Alone Forms: Patient Portal/API
[2025-03-24 09:48] LABS: INR 1.0 (0.9-1.3); Prothrombin Time 11.3 SECONDS (9.4-12.5)
[2025-03-24 09:49] LABS: Add Manual Diff / Slide Review NO; Hematocrit 40.7 % (41-53); Hemoglobin 14.1 g/dL (13.5-17.5); Lymphocytes Absolute Auto 600 /uL (1100-4500); Mean Corpuscular HGB Conc 34.6 % (30-36); Mean Corpuscular Hemoglobin 33.6 PG (26-34); Mean Corpuscular Volume 97.1 fL (80-100); Platelet Count 150 X10^3/uL (150-400)
[2025-03-24 09:51] LABS: PTT Partial Thromboplastin Tim 25 SECONDS (25.1-36.5)
[2025-03-24 09:53] LABS: Alanine Aminotransferase 16 IU/L (<50); Albumin 3.7 g/dL (3.5-5.0); Albumin Globulin Ratio 1.3 (1.0-2.8); Alkaline Phosphatase 51 U/L (38-126); Blood Urea Nitrogen 17 mg/dL (9-20); Calcium 8.6 mg/dL (8.4-10.2); Carbon Dioxide 22 mmol/L (22-32); Chloride 111 mmol/L (98-107); Creatine Kinase 35 U/L (55-170); Estimated Glomerular Filt Rate 60 mL/min (>60); Globulin 2.8 g/dL (1.7-4.1); Glucose 110 mg/dL (70-99); HEMOLYSIS 23 (0-50); Lipase 48 U/L (23-300); Magnesium 1.9 mg/dL (1.6-2.3); Potassium 4.1 mmol/L (3.4-5.1); Sodium 139 mmol/L (137-145); Total Protein 6.5 g/dL (6.3-8.2)
[2025-03-24 10:04] LABS: NT-proBNP (BNP-Adult 18+) 252 pg/mL (<450); Troponin I < 0.012 ng/mL (0.01-0.034)
[2025-03-24 10:54] LABS: Thyroid Stimulating Hormone 4.63 uIU/mL (0.47-4.68)
--- NOTE | 2025-03-24 11:07 | PC.NURSE ---
patient denies having chest pain, sob, chest pressure. no vomiting of diarrhea, some nausea this morning. pt has a hx of vertigo. his sx get worse with head position. Epiley maneuver has worked in the past but today has not been helpful. He has not had any s/sx of illness recently.
--- NOTE | 2025-03-24 11:56 | DI.MRI.S_ITS ---
PROCEDURE: MR HEAD/BRAIN WO CON INDICATIONS: dizziness TECHNIQUE: Non-contrast axial T1 spin echo, axial T2 fast spin echo, sagittal and axial FLAIR, coronal T2 fast spin echo, axial gradient echo, axial diffusion and ADC through the brain. COMPARISON: [facility], , MR HEAD/BRAIN WO CON, 03/09/2024, 14:04. FINDINGS: Image quality: Excellent. CSF spaces: Ventricles appear symmetric in size and shape. Basal cisterns are patent. No extra-axial fluid collections. Brain: No intracranial bleeds or mass effects. There is cerebral volume loss for age. There are periventricular and deep white matter chronic small vessel ischemic changes. Brainstem appears normal. Diffusion-weighted images show no acute infarct. No chronic ischemic insults. Normal intravascular flow voids are present. Skull and face: Calvarial bone marrow is normal in signal. Orbits are normal. Sinuses: Sinuses and mastoids are clear. IMPRESSION: No findings of acute, subacute, or prior chronic infarction. Chronic findings of mild generalized cerebral volume loss with subtle microvascular ischemic changes in the supratentorial white matter. Dictated by: Liu Faulkner M.D. on 03/24/2025 at 13:46 Approved by: Liu Faulkner M.D. on 03/24/2025 at 13:47
[2025-03-24] MEDS: ASPIRIN EC 325 MG TABLET PO (12:13)
[2025-03-24] MEDS: MECLIZINE HCL 12.5 MG TABLET 25 MG PO (14:11)
== END 2025-03-24 14:30 | disposition home or self-care (01) ==
PROVIDERS: Emergency Provider Family Medicine; Family Provider Internal Medicine; PCP Internal Medicine
DX: I65.22 Occlusion and stenosis of left carotid artery (principal); R42 Dizziness and giddiness; I10 Essential (primary) hypertension; R00.1 Bradycardia, unspecified
CPT/HCPCS: 70450; 70496; 70498; 70551; 71045; 80053; 82550; 83690; 83735; 83880; 84443; 84484; 85025; 85610; 85730; 93005; 99283; 99284; Q9967

== ENCOUNTER → 2025-04-03 15:17 | Outpatient (CLI) | payer MEDICARE, SELFPAY ==
[2024-09-02 11:51] VITALS: BMI 29.1
--- NOTE | 2025-04-03 15:18 | DI.US.S_ITS ---
PROCEDURE: US CAROTID DOPPLER BI INDICATIONS: carotid stenosis TECHNIQUE: Color and pulse Doppler interrogation was performed of both carotid systems, with image documentation and velocity measurements. COMPARISON: None. FINDINGS: Stenosis calculations are based on SRU ([employer] in [employer]) criteria. Right side: Common carotid artery peak systolic velocity: 87 cm/sec. Internal carotid artery peak systolic velocity: 104 cm/sec. Internal carotid artery end diastolic velocity: 25 cm/sec. External carotid artery peak systolic velocity: 95 cm/sec. ICA/CCA peak systolic ratio: 1.2 . [place] scale imaging description: Mild atherosclerotic plaques Percent internal carotid artery stenosis: Less than 50% . Vertebral artery: Flow direction is antegrade. Left side: Common carotid artery peak systolic velocity: 64 cm/sec. Internal carotid artery peak systolic velocity: 378 cm/sec. Internal carotid artery end diastolic velocity: 147 cm/sec. External carotid artery peak systolic velocity: 68 cm/sec. ICA/CCA peak systolic ratio: 5.9 . [place] scale imaging description: Significant atherosclerotic calcifications. Percent internal carotid artery stenosis: 70% to near occlusion . Vertebral artery: Flow direction is antegrade. IMPRESSION: 1. In the right carotid artery, there is less than 50% stenosis based on peak systolic velocity criteria. 2. In the left carotid artery, there is 70% to near occlusion based on peak systolic velocity criteria. 3. Antegrade vertebral arteries. Dictated by: Alban Dean M.D. on 04/04/2025 at 9:16 Approved by: Alban Dean M.D. on 04/04/2025 at 9:18
== END ==
LOC: US 15:17
PROVIDERS: Family Provider Internal Medicine; PCP Internal Medicine; Referring Provider Internal Medicine; Visit Provider Internal Medicine
DX: I65.23 Occlusion and stenosis of bilateral carotid arteries (principal)
CPT/HCPCS: 93880

== ENCOUNTER 2025-04-25 10:23 | Emergency (ER) | payer MEDICARE, SELFPAY ==
[2024-09-02 11:51] VITALS: BMI 29.1
[2025-04-25] VITALS (7 sets, daily range): BP systolic 106–180; BP diastolic 58–86; PULSE 44–58; RESP 14–17; TEMP 35.6; O2SAT 93–97; BMI 27.9
--- OUTSIDE RECORDS SUMMARY | 2025-04-25 10:27 | XMS_ITS ---
Author Name PerdomoYvonne moreno Address Unknown Organization [facility] Care Team Providers Care Culinary Assistant Name Role Phone Unavailable Primary Care Physician Unavailab le History Of Present Illness This is an 89 year old male who is following up for neoplasm of uncertain behavior on the right popliteal skin and right superior medial malar cheek. He was seen on February 15, 2025, at which time Biopsy by Shave Method was performed. The pathology shows: Macular Seborrheic Keratosis on the right po pliteal skin. We recommended the following: Reassure : Benign. 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 We recommended the following: Schedule : Mohs.The patient presents for Mohs. Allergies, Adverse Reactions, Alerts Substance RxNorm Reaction(s) Severity Status Start Da te prednisolone unspecified active Medications Medication Generic Name RxNorm Strength Strength Unit Route Dose Dose Form Frequency Date Started Date Ended Status Indication Sig triamcinolo ne acetonide triamcin olone acetonid e [id number] 0.1 % Topica l 0.1 ointm ent QD 08/23/19 21 active Irritation Appl y once leatha y to rash x 2 week s then foll ow up in clin ic. Adult Low Dose Aspirin aspirin 81 mg Oral 1 table t,del ayed relea se (DR/E C) qd active dexamethaso ne dexameth asone 909454 4 mg Oral table t 01/25/20 21 active Take 2 Tabl ets PO BID x 3 days then 1 tabl et PO QD x 5 days doxycycline hyclate doxycycl ine hyclate 4277348 100 mg Oral 1 capsu le BID 01/23/20 21 suspend ed Dermatitis bid doxycycline hyclate doxycycl ine hyclate 4984406 100 mg Oral 1 capsu le BID 01/25/20 21 suspend ed Dermatitis Take 1 tabl et PO BID with full glas s of kalin [place] doxycycline monohydrate doxycycl ine monohydr ate 0674500 100 mg Oral 100mg capsu le Qd 02/27/20 22 active Take one po BID for flar es doxycycline monohydrate doxycycl ine monohydr ate 4293559 100 mg Oral 100mg capsu le Qd 04/02/20 22 active Take one po BID for flar es lisinopril lisinopr il 10 mg Oral 1 table t qd active mirtazapine mirtazap ine 15 mg Oral 1 table t qd active niacinamide niacinam mana 896185 500 mg Oral table t 01/30/20 21 active Take one TID x 30 days levothyroxi ne levothyr oxine 1 mg po 1 po qd active pravastatin pravasta tin 1 mg po tab tab qd active [place] 166167 0.05 % Scalp solut ion 01/30/20 21 active Mix with Cera Ve loti on, appl y bid x two week s off for two week s then repe at PRN flar e Problems Problem Code Type Status Date of Diagnosis Date of Resolution Squamous cell carcinoma of skin of face (disorder) 118416031(S NOMED) Diagnosis active 03/06/2025 Neoplasm of uncertain behavior of skin (disorder) 12445058(SN OMED) Diagnosis active 02/15/2025 Actinic keratosis (disorder) 591827743(S NOMED) Diagnosis active 02/15/2025 Inflamed seborrheic keratosis (disorder) 863382196(S NOMED) Diagnosis active 02/15/2025 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) 933851005(S NOMED) Diagnosis active 02/15/2025 Bullous pemphigoid (disorder) 25052277(SN OMED) Diagnosis active 02/15/2025 Seborrheic keratosis (disorder) 040500928(S NOMED) Diagnosis active 02/15/2025 Hemangioma of skin and subcutaneous tissue (disorder) 411046785(S NOMED) Diagnosis active 02/15/2025 Melanocytic nevus of trunk (disorder) 316979521(S NOMED) Diagnosis active 02/15/2025 Disorder of pigmentation (disorder) 956916610(S NOMED) Diagnosis active 02/15/2025 History of skin and/or subcutaneous tissue disease (situation) 25856448642 9105(SNOMED ) Diagnosis active 02/15/2025 History of malignant neoplasm of skin (situation) 707341656(S NOMED) Diagnosis active 02/15/2025 Ingrowing nail (disorder) 008259749(S NOMED) Diagnosis active 02/15/2025 Actinic keratosis (disorder) (S NOMED) Diagnosis active 12/15/2024 Inflamed seborrheic keratosis (disorder) 477869170(S NOMED) Diagnosis active 12/15/2024 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) (S NOMED) Diagnosis active 12/15/2024 History of skin and/or subcutaneous tissue disease (situation) 38256489595 9105(SNOMED ) Diagnosis active 12/15/2024 History of malignant neoplasm of skin (situation) 383683888(S NOMED) Diagnosis active 12/15/2024 Bullous pemphigoid (disorder) 43830099(SN OMED) Diagnosis active 11/22/2024 Actinic keratosis (disorder) (S NOMED) Diagnosis active 11/22/2024 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) (S NOMED) Diagnosis active 11/22/2024 Inflamed seborrheic keratosis (disorder) 609050931(S NOMED) Diagnosis active 11/22/2024 Seborrheic keratosis (disorder) 416675049(S NOMED) Diagnosis active 11/22/2024 History of skin and/or subcutaneous tissue disease (situation) 41464934444 9105(SNOMED ) Diagnosis active 11/22/2024 History of malignant neoplasm of skin (situation) 946102493(S NOMED) Diagnosis active 11/22/2024 Actinic keratosis (disorder) (S NOMED) Diagnosis active 09/22/2024 Inflamed seborrheic keratosis (disorder) 624627450(S NOMED) Diagnosis active 09/22/2024 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) (S NOMED) Diagnosis active 09/22/2024 History of malignant neoplasm of skin (situation) 461081778(S NOMED) Diagnosis active 09/22/2024 History of skin and/or subcutaneous tissue disease (situation) 43524650414 9105(SNOMED ) Diagnosis active 09/22/2024 Actinic keratosis (disorder) (S NOMED) Diagnosis active 08/10/2024 Inflamed seborrheic keratosis (disorder) 727147403(S NOMED) Diagnosis active 08/10/2024 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) (S NOMED) Diagnosis active 08/10/2024 Bullous pemphigoid (disorder) 23239312(SN OMED) Diagnosis active 08/10/2024 Seborrheic keratosis (disorder) 574204023(S NOMED) Diagnosis active 08/10/2024 Hemangioma of skin and subcutaneous tissue (disorder) 162213462(S NOMED) Diagnosis active 08/10/2024 Melanocytic nevus of trunk (disorder) 960447152(S NOMED) Diagnosis active 08/10/2024 Disorder of pigmentation (disorder) 087286181(S NOMED) Diagnosis active 08/10/2024 History of malignant neoplasm of skin (situation) 141250397(S NOMED) Diagnosis active 08/10/2024 History of skin and/or subcutaneous tissue disease (situation) 68075032593 9105(SNOMED ) Diagnosis active 08/10/2024 Bullous pemphigoid (disorder) 60538049(SN OMED) Diagnosis active 04/06/2024 Actinic keratosis (disorder) (S NOMED) Diagnosis active 04/06/2024 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) (S NOMED) Diagnosis active 04/06/2024 Inflamed seborrheic keratosis (disorder) 376646928(S NOMED) Diagnosis active 04/06/2024 Seborrheic keratosis (disorder) 549068738(S NOMED) Diagnosis active 04/06/2024 History of malignant neoplasm of skin (situation) 691763334(S NOMED) Diagnosis active 04/06/2024 History of skin and/or subcutaneous tissue disease (situation) 27869323742 9105(SNOMED ) Diagnosis active 04/06/2024 Surgical follow-up (finding) 098913404(S NOMED) Diagnosis active 12/20/2023 Squamous cell carcinoma of skin of face (disorder) 515525379(S NOMED) Diagnosis active 12/13/2023 Neoplasm of uncertain behavior of skin (disorder) 47551878(SN OMED) Diagnosis active 12/03/2023 Actinic keratosis (disorder) (S NOMED) Diagnosis active 12/03/2023 Inflamed seborrheic keratosis (disorder) 874337942(S NOMED) Diagnosis active 12/03/2023 History of malignant neoplasm of skin (situation) 710252191(S NOMED) Diagnosis active 12/03/2023 Bullous pemphigoid (disorder) 99422613(SN OMED) Diagnosis active 12/03/2023 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) 019041469(S NOMED) Diagnosis active 12/03/2023 Actinic keratosis (disorder) (S NOMED) Diagnosis active 08/26/2023 Bullous pemphigoid (disorder) 46584788(SN OMED) Diagnosis active 08/26/2023 Inflamed seborrheic keratosis (disorder) 973824849(S NOMED) Diagnosis active 08/26/2023 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) 666493706(S NOMED) Diagnosis active 08/26/2023 Seborrheic keratosis (disorder) 052592577(S NOMED) Diagnosis active 08/26/2023 Hemangioma of skin and subcutaneous tissue (disorder) 608212453(S NOMED) Diagnosis active 08/26/2023 Melanocytic nevus of trunk (disorder) 540035361(S NOMED) Diagnosis active 08/26/2023 Disorder of pigmentation (disorder) 960396820(S NOMED) Diagnosis active 08/26/2023 History of malignant neoplasm of skin (situation) 828685601(S NOMED) Diagnosis active 08/26/2023 History of malignant neoplasm of skin (situation) 862541527(S NOMED) Diagnosis active 05/17/2023 History of skin and/or subcutaneous tissue disease (situation) 65691156163 9105(SNOMED ) Diagnosis active 05/17/2023 Bullous pemphigoid (disorder) 64401919(SN OMED) Diagnosis active 05/17/2023 Inflamed seborrheic keratosis (disorder) 420083644(S NOMED) Diagnosis active 05/17/2023 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) (S NOMED) Diagnosis active 05/17/2023 Hemangioma of skin and subcutaneous tissue (disorder) 446616660(S NOMED) Diagnosis active 05/17/2023 Melanocytic nevus of trunk (disorder) 716699168(S NOMED) Diagnosis active 05/17/2023 Seborrheic keratosis (disorder) 479677587(S NOMED) Diagnosis active 05/17/2023 Bullous pemphigoid (disorder) 19819975(SN OMED) Diagnosis active 02/25/2023 Actinic keratosis (disorder) 389521739(S NOMED) Diagnosis active 02/25/2023 Inflamed seborrheic keratosis (disorder) 108360054(S NOMED) Diagnosis active 02/25/2023 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) (S NOMED) Diagnosis active 02/25/2023 Seborrheic keratosis (disorder) 998210661(S NOMED) Diagnosis active 02/25/2023 Hemangioma of skin and subcutaneous tissue (disorder) 363908147(S NOMED) Diagnosis active 02/25/2023 Melanocytic nevus of trunk (disorder) 024989361(S NOMED) Diagnosis active 02/25/2023 Disorder of pigmentation (disorder) 071834109(S NOMED) Diagnosis active 02/25/2023 History of malignant neoplasm of skin (situation) 112348448(S NOMED) Diagnosis active 02/25/2023 Inflamed seborrheic keratosis (disorder) 892386970(S NOMED) Diagnosis active 09/30/2022 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) (S NOMED) Diagnosis active 09/30/2022 Scar conditions and fibrosis of skin (disorder) 680321020(S NOMED) Diagnosis active 09/30/2022 History of malignant neoplasm of skin (situation) 616286664(S NOMED) Diagnosis active 09/30/2022 Bullous pemphigoid (disorder) 17152829(SN OMED) Diagnosis active 08/27/2022 Neoplasm of uncertain behavior of skin (disorder) 06738299(SN OMED) Diagnosis active 08/27/2022 Actinic keratosis (disorder) (S NOMED) Diagnosis active 08/27/2022 Inflamed seborrheic keratosis (disorder) 323051230(S NOMED) Diagnosis active 08/27/2022 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) (S NOMED) Diagnosis active 08/27/2022 Seborrheic keratosis (disorder) 143725818(S NOMED) Diagnosis active 08/27/2022 Hemangioma of skin and subcutaneous tissue (disorder) 342367531(S NOMED) Diagnosis active 08/27/2022 Melanocytic nevus of trunk (disorder) 779669490(S NOMED) Diagnosis active 08/27/2022 Disorder of pigmentation (disorder) 316009051(S NOMED) Diagnosis active 08/27/2022 Actinic keratosis (disorder) (S NOMED) Diagnosis active 04/02/2022 Bullous pemphigoid (disorder) 44539373(SN OMED) Diagnosis active 04/02/2022 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) (S NOMED) Diagnosis active 04/02/2022 Seborrheic keratosis (disorder) 200863613(S NOMED) Diagnosis active 04/02/2022 Inflamed seborrheic keratosis (disorder) 040451944(S NOMED) Diagnosis active 04/02/2022 History of malignant neoplasm of skin (situation) 583382220(S NOMED) Diagnosis active 04/02/2022 Neoplasm of uncertain behavior of skin (disorder) 21548775(SN OMED) Diagnosis active 02/26/2022 Actinic keratosis (disorder) (S NOMED) Diagnosis active 02/26/2022 Bullous pemphigoid (disorder) 88736761(SN OMED) Diagnosis active 02/26/2022 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) (S NOMED) Diagnosis active 02/26/2022 Seborrheic keratosis (disorder) 647780867(S NOMED) Diagnosis active 02/26/2022 Hemangioma of skin and subcutaneous tissue (disorder) 053634768(S NOMED) Diagnosis active 02/26/2022 Melanocytic nevus of trunk (disorder) 178870863(S NOMED) Diagnosis active 02/26/2022 Disorder of pigmentation (disorder) 768704334(S NOMED) Diagnosis active 02/26/2022 History of malignant neoplasm of skin (situation) 333971426(S NOMED) Diagnosis active 02/26/2022 Actinic keratosis (disorder) (S NOMED) Diagnosis active 09/02/2021 Inflamed seborrheic keratosis (disorder) 348866307(S NOMED) Diagnosis active 09/02/2021 Neoplasm of uncertain behavior of skin (disorder) 43197744(SN OMED) Diagnosis active 09/02/2021 Bullous pemphigoid (disorder) 70118522(SN OMED) Diagnosis active 09/02/2021 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) 149723405(S NOMED) Diagnosis active 09/02/2021 Seborrheic keratosis (disorder) 597108416(S NOMED) Diagnosis active 09/02/2021 Hemangioma of skin and subcutaneous tissue (disorder) 128406302(S NOMED) Diagnosis active 09/02/2021 Melanocytic nevus of trunk (disorder) 655843599(S NOMED) Diagnosis active 09/02/2021 Disorder of pigmentation (disorder) 037743893(S NOMED) Diagnosis active 09/02/2021 History of malignant neoplasm of skin (situation) 811611973(S NOMED) Diagnosis active 09/02/2021 Bullous pemphigoid (disorder) 02407865(SN OMED) Diagnosis active 04/30/2021 Actinic keratosis (disorder) 766232233(S NOMED) Diagnosis active 04/30/2021 Inflamed seborrheic keratosis (disorder) 097596303(S NOMED) Diagnosis active 04/30/2021 Bullous pemphigoid (disorder) 16180063(SN OMED) Diagnosis active 03/12/2021 Bullous pemphigoid (disorder) 29760546(SN OMED) Diagnosis active 02/12/2021 Surgical follow-up (finding) 553981108(S NOMED) Diagnosis active 02/05/2021 Bullous pemphigoid (disorder) 22604402(SN OMED) Diagnosis active 01/29/2021 Post-inflammatory hyperpigmentation (disorder) 523984642(S NOMED) Diagnosis active 01/29/2021 Infection caused by methicillin susceptible Staphylococcus aureus (disorder) 633023002(S NOMED) Diagnosis active 01/29/2021 Neoplasm of uncertain behavior of skin (disorder) 72514091(SN OMED) Diagnosis active 01/22/2021 Infection caused by methicillin susceptible Staphylococcus aureus (disorder) 993494101(S NOMED) Diagnosis active 01/22/2021 Injury of chest wall (disorder) 15746395(SN OMED) Diagnosis active 01/22/2021 Injury of trunk (disorder) 08601081(SN OMED) Diagnosis active 01/22/2021 Inflammatory dermatosis (disorder) 967891812(S NOMED) Diagnosis active 01/22/2021 Neoplasm of uncertain behavior of skin (disorder) 99705337(SN OMED) Diagnosis active 01/14/2021 Inflammatory dermatosis (disorder) 361435630(S NOMED) Diagnosis active 01/14/2021 Injury of chest wall (disorder) 71092651(SN OMED) Diagnosis active 01/14/2021 Injury of trunk (disorder) 88327082(SN OMED) Diagnosis active 01/14/2021 Seborrheic keratosis (disorder) 997516888(S NOMED) Diagnosis active 01/14/2021 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) 795047871(S NOMED) Diagnosis active 01/14/2021 Disorder of pigmentation (disorder) 416104446(S NOMED) Diagnosis active 01/14/2021 Hemangioma of skin and subcutaneous tissue (disorder) 604382886(S NOMED) Diagnosis active 01/14/2021 Generalized skin eruption caused by drug and medicament (disorder) 432080388(S NOMED) Diagnosis active 10/15/2020 Surgical follow-up (finding) 806506275(S NOMED) Diagnosis active 10/14/2020 Squamous cell carcinoma of skin of face (disorder) 530495267(S NOMED) Diagnosis active 10/07/2020 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) 958843888(S NOMED) Diagnosis active 10/07/2020 Generalized skin eruption caused by drug and medicament (disorder) 641778436(S NOMED) Diagnosis active 10/01/2020 History of malignant neoplasm of skin (situation) 534078119(S NOMED) Diagnosis active 10/01/2020 Seborrheic keratosis (disorder) 735400386(S NOMED) Diagnosis active 10/01/2020 Neoplasm of uncertain behavior of skin (disorder) 33384254(SN OMED) Diagnosis active 10/01/2020 Generalized skin eruption caused by drug and medicament (disorder) 536914589(S NOMED) Diagnosis active 09/10/2020 Hemangioma of skin and subcutaneous tissue (disorder) 759289876(S NOMED) Diagnosis active 09/10/2020 History of malignant neoplasm of skin (situation) 067731304(S NOMED) Diagnosis active 09/10/2020 Neoplasm of uncertain behavior of skin (disorder) 12379416(SN OMED) Diagnosis active 08/13/2020 Actinic keratosis (disorder) 347228077(S NOMED) Diagnosis active 08/13/2020 Inflamed seborrheic keratosis (disorder) 476493835(S NOMED) Diagnosis active 08/13/2020 Asteatosis cutis (disorder) 70509070(SN OMED) Diagnosis active 08/13/2020 Nummular eczema (disorder) 92926615(SN OMED) Diagnosis active 08/13/2020 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) 102080165(S NOMED) Diagnosis active 08/13/2020 Seborrheic keratosis (disorder) 315472144(S NOMED) Diagnosis active 08/13/2020 Hemangioma of skin and subcutaneous tissue (disorder) 260061521(S NOMED) Diagnosis active 08/13/2020 History of malignant neoplasm of skin (situation) 671432089(S NOMED) Diagnosis active 08/13/2020 Itching of skin (finding) 855805815(S NOMED) Diagnosis active 08/13/2020 Melanocytic nevi of trunk D22.5(ICD-1 0) Diagnosis active 06/04/2020 Hemangioma of skin and subcutaneous tissue D18.01(ICD- 10) Diagnosis active 06/04/2020 Other melanin hyperpigmentation L81.4(ICD-1 0) Diagnosis active 06/04/2020 Other seborrheic keratosis L82.1(ICD-1 0) Diagnosis active 06/04/2020 Other skin changes due to chronic exposure to nonionizing radiation L57.8(ICD-1 0) Diagnosis active 06/04/2020 Actinic keratosis L57.0(ICD-1 0) Diagnosis active 06/04/2020 Inflamed seborrheic keratosis L82.0(ICD-1 0) Diagnosis active 06/04/2020 Xerosis cutis L85.3(ICD-1 0) Diagnosis active 06/04/2020 Other pruritus L29.8(ICD-1 0) Diagnosis active 06/04/2020 Benign lipomatous neoplasm of skin and subcutaneous tissue of trunk D17.1(ICD-1 0) Diagnosis active 06/04/2020 Personal history of other malignant neoplasm of skin Z85.828(ICD -10) Diagnosis active 06/04/2020 Other skin changes due to chronic exposure to nonionizing radiation L57.8(ICD-1 0) Diagnosis active 02/08/2020 Personal history of other malignant neoplasm of skin Z85.828(ICD -10) Diagnosis active 02/08/2020 Actinic keratosis L57.0(ICD-1 0) Diagnosis active 02/08/2020 Other seborrheic keratosis L82.1(ICD-1 0) Diagnosis active 02/08/2020 Hemangioma of skin and subcutaneous tissue D18.01(ICD- 10) Diagnosis active 02/08/2020 Neoplasm of uncertain behavior of skin D48.5(ICD-1 0) Diagnosis active 02/08/2020 Inflamed seborrheic keratosis L82.0(ICD-1 0) Diagnosis active 02/08/2020 Other skin changes due to chronic exposure to nonionizing radiation L57.8(ICD-1 0) Diagnosis active 01/25/2019 Personal history of other malignant neoplasm of skin Z85.828(ICD -10) Diagnosis active 01/25/2019 Actinic keratosis L57.0(ICD-1 0) Diagnosis active 01/25/2019 Inflamed seborrheic keratosis L82.0(ICD-1 0) Diagnosis active 01/25/2019 Other seborrheic keratosis L82.1(ICD-1 0) Diagnosis active 01/25/2019 Hemangioma of skin and subcutaneous tissue D18.01(ICD- 10) Diagnosis active 01/25/2019 Other seborrheic keratosis L82.1(ICD-1 0) Diagnosis active 09/01/2018 Other skin changes due to chronic exposure to nonionizing radiation L57.8(ICD-1 0) Diagnosis active 09/01/2018 Hemangioma of skin and subcutaneous tissue D18.01(ICD- 10) Diagnosis active 09/01/2018 Inflamed seborrheic keratosis L82.0(ICD-1 0) Diagnosis active 09/01/2018 Personal history of other malignant neoplasm of skin Z85.828(ICD -10) Diagnosis active 09/01/2018 Other melanin hyperpigmentation L81.4(ICD-1 0) Diagnosis active 09/01/2018 Actinic keratosis L57.0(ICD-1 0) Diagnosis active 09/01/2018 Neoplasm of unspecified behavior of bone, soft tissue, and skin D49.2(ICD-1 0) Diagnosis active 02/10/2018 Inflamed seborrheic keratosis L82.0(ICD-1 0) Diagnosis active 02/10/2018 Actinic keratosis L57.0(ICD-1 0) Diagnosis active 12/16/2017 Inflamed seborrheic keratosis L82.0(ICD-1 0) Diagnosis active 12/16/2017 Personal history of other malignant neoplasm of skin Z85.828(ICD -10) Diagnosis active 12/16/2017 Personal history of other malignant neoplasm of skin Z85.828(ICD -10) Diagnosis active 10/14/2017 Actinic keratosis L57.0(ICD-1 0) Diagnosis active 10/14/2017 Neoplasm of unspecified behavior of bone, soft tissue, and skin D49.2(ICD-1 0) Diagnosis active 10/14/2017 Inflamed seborrheic keratosis L82.0(ICD-1 0) Diagnosis active 10/14/2017 Other seborrheic keratosis L82.1(ICD-1 0) Diagnosis active 08/26/2017 Other skin changes due to chronic exposure to nonionizing radiation L57.8(ICD-1 0) Diagnosis active 08/26/2017 Inflamed seborrheic keratosis L82.0(ICD-1 0) Diagnosis active 08/26/2017 Hemangioma of skin and subcutaneous tissue D18.01(ICD- 10) Diagnosis active 08/26/2017 Personal history of other malignant neoplasm of skin Z85.828(ICD -10) Diagnosis active 08/26/2017 Actinic keratosis L57.0(ICD-1 0) Diagnosis active 08/26/2017 Actinic keratosis L57.0(ICD-1 0) Diagnosis active 02/15/2017 Neoplasm of uncertain behavior of skin D48.5(ICD-1 0) Diagnosis active 02/15/2017 Other skin changes due to chronic exposure to nonionizing radiation L57.8(ICD-1 0) Diagnosis active 02/04/2017 Cellulitis of face L03.211(ICD -10) Diagnosis active 02/04/2017 Actinic keratosis L57.0(ICD-1 0) Diagnosis active 02/04/2017 Neoplasm of unspecified behavior of bone, soft tissue, and skin D49.2(ICD-1 0) Diagnosis active 02/04/2017 Cellulitis of other sites L03.818(ICD -10) Diagnosis active 01/28/2017 Actinic keratosis L57.0(ICD-1 0) Diagnosis active 01/28/2017 Hemangioma of skin and subcutaneous tissue D18.01(ICD- 10) Diagnosis active 01/28/2017 Neoplasm of unspecified behavior of bone, soft tissue, and skin D49.2(ICD-1 0) Diagnosis active 01/28/2017 Inflamed seborrheic keratosis L82.0(ICD-1 0) Diagnosis active 01/28/2017 Other skin changes due to chronic exposure to nonionizing radiation L57.8(ICD-1 0) Diagnosis active 01/28/2017 Inflamed seborrheic keratosis L82.0(ICD-1 0) Diagnosis active 08/27/2016 Other seborrheic keratosis L82.1(ICD-1 0) Diagnosis active 08/27/2016 Neoplasm of unspecified behavior of bone, soft tissue, and skin D49.2(ICD-1 0) Diagnosis active 08/27/2016 Other skin changes due to chronic exposure to nonionizing radiation L57.8(ICD-1 0) Diagnosis active 08/27/2016 Actinic keratosis L57.0(ICD-1 0) Diagnosis active 08/27/2016 Personal history of other malignant neoplasm of skin Z85.828(ICD -10) Diagnosis active 08/27/2016 Hemangioma of skin and subcutaneous tissue D18.01(ICD- 10) Diagnosis active 08/27/2016 Actinic keratosis L57.0(ICD-1 0) Diagnosis active 01/30/2016 Other melanin hyperpigmentation L81.4(ICD-1 0) Diagnosis active 01/30/2016 Personal history of other malignant neoplasm of skin Z85.828(ICD -10) Diagnosis active 01/30/2016 Hemangioma of skin and subcutaneous tissue D18.01(ICD- 10) Diagnosis active 01/30/2016 Inflamed seborrheic keratosis L82.0(ICD-1 0) Diagnosis active 01/30/2016 Other seborrheic keratosis L82.1(ICD-1 0) Diagnosis active 01/30/2016 Other seborrheic keratosis L82.1(ICD-1 0) Diagnosis active 12/12/2015 Inflamed seborrheic keratosis L82.0(ICD-1 0) Diagnosis active 12/12/2015 Other skin changes due to chronic exposure to nonionizing radiation L57.8(ICD-1 0) Diagnosis active 12/12/2015 Personal history of other malignant neoplasm of skin Z85.828(ICD -10) Diagnosis active 12/12/2015 Actinic keratosis L57.0(ICD-1 0) Diagnosis active 12/12/2015 Hemangioma of skin and subcutaneous tissue D18.01(ICD- 10) Diagnosis active 12/12/2015 Inflamed seborrheic keratosis L82.0(ICD-1 0) Diagnosis active 08/29/2015 Melanocytic nevi of right upper limb, including shoulder D22.61(ICD- 10) Diagnosis active 08/29/2015 Melanocytic nevi of trunk D22.5(ICD-1 0) Diagnosis active 08/29/2015 Hemangioma of skin and subcutaneous tissue D18.01(ICD- 10) Diagnosis active 08/29/2015 Actinic keratosis L57.0(ICD-1 0) Diagnosis active 08/29/2015 Melanocytic nevi of left lower limb, including hip D22.72(ICD- 10) Diagnosis active 08/29/2015 Melanocytic nevi of left upper limb, including shoulder D22.62(ICD- 10) Diagnosis active 08/29/2015 Other seborrheic keratosis L82.1(ICD-1 0) Diagnosis active 08/29/2015 Other skin changes due to chronic exposure to nonionizing radiation L57.8(ICD-1 0) Diagnosis active 08/29/2015 Personal history of other malignant neoplasm of skin Z85.828(ICD -10) Diagnosis active 08/29/2015 Melanocytic nevi of right lower limb, including hip D22.71(ICD- 10) Diagnosis active 08/29/2015 Hemangioma of skin and subcutaneous tissue D18.01(ICD- 10) Diagnosis active 02/14/2015 Personal history of other malignant neoplasm of skin Z85.828(ICD -10) Diagnosis active 02/14/2015 Actinic keratosis L57.0(ICD-1 0) Diagnosis active 02/14/2015 Other skin changes due to chronic exposure to nonionizing radiation L57.8(ICD-1 0) Diagnosis active 02/14/2015 Hemangioma of skin and subcutaneous tissue D18.01(ICD- 10) Diagnosis active 08/30/2014 Other skin changes due to chronic exposure to nonionizing radiation L57.8(ICD-1 0) Diagnosis active 08/30/2014 Actinic keratosis L57.0(ICD-1 0) Diagnosis active 08/30/2014 Personal history of other malignant neoplasm of skin Z85.828(ICD -10) Diagnosis active 08/30/2014 Other injury of unspecified body region T14.8(ICD-1 0) Diagnosis active 08/30/2014 Other seborrheic keratosis L82.1(ICD-1 0) Diagnosis active 08/30/2014 Neoplasm of unspecified behavior of bone, soft tissue, and skin D49.2(ICD-1 0) Diagnosis active 02/08/2014 Personal history of other malignant neoplasm of skin Z85.828(ICD -10) Diagnosis active 02/08/2014 Inflamed seborrheic keratosis L82.0(ICD-1 0) Diagnosis active 02/08/2014 Other seborrheic keratosis L82.1(ICD-1 0) Diagnosis active 02/08/2014 Hemangioma of skin and subcutaneous tissue D18.01(ICD- 10) Diagnosis active 02/08/2014 Other skin changes due to chronic exposure to nonionizing radiation L57.8(ICD-1 0) Diagnosis active 02/08/2014 Actinic keratosis L57.0(ICD-1 0) Diagnosis active 02/08/2014 Encounter for removal of sutures V58.32(ICD- 9) Diagnosis active 2013 Squamous cell carcinoma of skin of trunk, except scrotum 173.52(ICD- 9) Diagnosis active 09/26/2013 Actinic keratosis 702.0(ICD-9 ) Diagnosis active 09/06/2013 Neoplasm of unspecified nature of bone, soft tissue, and skin 239.2(ICD-9 ) Diagnosis active 09/06/2013 Hemangioma of skin and subcutaneous tissue 228.01(ICD- 9) Diagnosis active 09/06/2013 Other seborrheic keratosis 702.19(ICD- 9) Diagnosis active 09/06/2013 Benign neoplasm of skin of trunk, except scrotum 216.5(ICD-9 ) Diagnosis active 09/06/2013 Personal history of other malignant neoplasm of skin V10.83(ICD- 9) Diagnosis active 09/06/2013 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) Diagnosis active 01/04/2013 Other dyschromia 709.09(ICD- 9) Diagnosis active 01/04/2013 Inflamed seborrheic keratosis 702.11(ICD- 9) Diagnosis active 01/05/2013 Atrial fibrillation (disorder) 43560938(SN OMED) Problem active Squamous cell carcinoma (disorder) 779003795(S NOMED) Problem active Arthritis (disorder) 3480254(SNO MED) Problem active Acne (disorder) 52309148(SN OMED) Problem active Acne (disorder) 98157935(SN OMED) Problem active Arthritis (disorder) 6625136(SNO MED) Problem active Squamous cell carcinoma (disorder) 549587534(S NOMED) Problem active Actinic keratosis (disorder) (S NOMED) Problem active Actinic keratosis (disorder) (S NOMED) Problem active Atrial fibrillation (disorder) 88836579(SN OMED) Problem active Atrial fibrillation (disorder) 75588257(SN OMED) Problem active Acne (disorder) 35127143(SN OMED) Problem active Acne (disorder) 36207828(SN OMED) Problem active Arthritis (disorder) 9478618(SNO MED) Problem active Squamous cell carcinoma (disorder) 748372711(S NOMED) Problem active Actinic keratosis (disorder) (S NOMED) Problem active Arthritis (disorder) 7595195(SNO MED) Problem active Atrial fibrillation (disorder) 69624064(SN OMED) Problem active Atrial fibrillation (disorder) 88174567(SN OMED) Problem active Squamous cell carcinoma (disorder) 972769212(S NOMED) Problem active Actinic keratosis (disorder) (S NOMED) Problem active Acne (disorder) 39095646(SN OMED) Problem active Squamous cell carcinoma (disorder) 117757491(S NOMED) Problem active Arthritis (disorder) 2752846(SNO MED) Problem active Arthritis (disorder) 6458807(SNO MED) Problem active Acne (disorder) 46479008(SN OMED) Problem active Atrial fibrillation (disorder) 51973651(SN OMED) Problem active Actinic keratosis (disorder) (S NOMED) Problem active Actinic keratosis (disorder) (S NOMED) Problem active Squamous cell carcinoma (disorder) 061863980(S NOMED) Problem active History of clinical finding in subject (situation) 484289230(S NOMED) Problem active Results No data Encounters Service provided at [address], [address], [place], [place] [id number]. Office phone number is [phone]. Office fax number is [phone]. 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) [place] 03/06/2025 17:10:00 UTC NI Reason For Referral No data Procedures Procedure Date Mohs surgery (procedure) 03/06/2025 12:0 0 am UTC Cryotherapy of skin lesion with liquid n itrogen (procedure) 02/15/2025 12:00 am UTC Shave biopsy (procedure) 02/15/2025 12:0 0 am UTC Destruction of premalignant skin lesion (procedure) 02/15/2025 12:00 am UTC Shave excision of skin lesion (procedure ) 12/15/2024 12:00 am UTC Destruction of premalignant skin lesion (procedure) 12/15/2024 12:00 am UTC Cryotherapy of skin lesion with liquid n itrogen (procedure) 12/15/2024 12:00 am UTC Destruction of premalignant skin lesion (procedure) 11/22/2024 12:00 am UTC Cryotherapy of skin lesion with liquid n itrogen (procedure) 11/22/2024 12:00 am UTC Destruction of premalignant skin lesion (procedure) 09/22/2024 12:00 am UTC Cryotherapy of skin lesion with liquid n itrogen (procedure) 09/22/2024 12:00 am UTC Destruction of premalignant skin lesion (procedure) 08/10/2024 12:00 am UTC Cryotherapy of skin lesion with liquid n itrogen (procedure) 08/10/2024 12:00 am UTC Cryotherapy of skin lesion with liquid n itrogen (procedure) 04/06/2024 12:00 am UTC Destruction of premalignant skin lesion (procedure) 04/06/2024 12:00 am UTC Removal of suture (procedure) 12/20/2023 12:00 am UTC Mohs surgery (procedure) 12/13/2023 12:0 0 am UTC Cryotherapy of skin lesion with liquid n itrogen (procedure) 12/03/2023 12:00 am UTC Shave biopsy (procedure) 12/03/2023 12:0 0 am UTC Destruction of premalignant skin lesion (procedure) 12/03/2023 12:00 am UTC Cryotherapy of skin lesion with liquid n itrogen (procedure) 08/26/2023 12:00 am UTC Destruction of premalignant skin lesion (procedure) 08/26/2023 12:00 am UTC Cryotherapy of skin lesion with liquid n itrogen (procedure) 05/17/2023 12:00 am UTC Cryotherapy of skin lesion with liquid n itrogen (procedure) 02/25/2023 12:00 am UTC Cryotherapy of skin lesion with liquid n itrogen (procedure) 09/30/2022 12:00 am UTC Cryotherapy of skin lesion with liquid n itrogen (procedure) 08/27/2022 12:00 am UTC Shave biopsy (procedure) 08/27/2022 12:0 0 am UTC Cryotherapy of skin lesion with liquid n itrogen (procedure) 04/02/2022 12:00 am UTC Shave biopsy (procedure) 02/26/2022 12:0 0 am UTC Cryotherapy of skin lesion with liquid n itrogen (procedure) 02/26/2022 12:00 am UTC Administration of vaccine pr oduct containing only Influenza virus antigen (procedure) 02/26/2022 12:00 am UTC Cryotherapy of skin lesion with liquid n itrogen (procedure) 09/02/2021 12:00 am UTC Shave biopsy (procedure) 09/02/2021 12:0 0 am UTC Cryotherapy of skin lesion with liquid n itrogen (procedure) 04/30/2021 12:00 am UTC Punch biopsy (procedure) 01/22/2021 12:0 0 am UTC Documentation of current medications (pr ocedure) 01/16/2021 12:00 am UTC Shave biopsy (procedure) 01/14/2021 12:0 0 am UTC Documentation of current medications (pr ocedure) 10/21/2020 12:00 am UTC Documentation of current medications (pr ocedure) 10/18/2020 12:00 am UTC Documentation of current medications (pr ocedure) 10/07/2020 12:00 am UTC Documentation of current medications (pr ocedure) 10/07/2020 12:00 am UTC Mohs surgery (procedure) 10/07/2020 12:0 0 am UTC Shave biopsy (procedure) 10/01/2020 12:0 0 am UTC Documentation of current medications (pr ocedure) 09/11/2020 12:00 am UTC Documentation of current medications (pr ocedure) 08/13/2020 12:00 am UTC Cryotherapy of skin lesion with liquid n itrogen (procedure) 08/13/2020 12:00 am UTC Shave biopsy (procedure) 08/13/2020 12:0 0 am UTC Documentation of current medications (pr ocedure) 06/05/2020 12:00 am UTC Cryotherapy of skin lesion with liquid n itrogen (procedure) 06/04/2020 12:00 am UTC Documentation of current medications (pr ocedure) 02/12/2020 12:00 am UTC Destruction of lesion of skin (procedure ) 02/08/2020 12:00 am UTC Cryotherapy of skin lesion with liquid n itrogen (procedure) 02/08/2020 12:00 am UTC Shave biopsy (procedure) 02/08/2020 12:0 0 am UTC Excision of squamous cell carcinoma (pro cedure) 12/16/2017 12:00 am UTC Biopsy of skin (procedure) 12/16/2017 12 :00 am UTC Percutaneous extraction of k [place]ney stone with fragmentation procedure (procedure) 12/16/2017 12:00 am UTC History of appendectomy (situation) 11/25 12:00 am UTC Percutaneous extraction of k idney stone with fragmentation procedure (procedure) 10/14/2017 12:00 am UTC Excision of squamous cell carcinoma (pro cedure) 10/14/2017 12:00 am UTC History of appendectomy (situation) 09/25 12:00 am UTC Biopsy of skin (procedure) 10/14/2017 12 :00 am UTC Excision of squamous cell carcinoma (pro cedure) 08/26/2017 12:00 am UTC Biopsy of skin (procedure) 08/26/2017 12 :00 am UTC History of appendectomy (situation) 06/2017 12:00 am UTC Percutaneous extraction of k idney stone with fragmentation procedure (procedure) 08/26/2017 12:00 am UTC Percutaneous extraction of k idney stone with fragmentation procedure (procedure) 02/15/2017 12:00 am UTC Excision of squamous cell carcinoma (pro cedure) 02/15/2017 12:00 am UTC History of appendectomy (situation) 01/25 12:00 am UTC Biopsy of skin (procedure) 02/15/2017 12 :00 am UTC Percutaneous extraction of k idney stone with fragmentation procedure (procedure) 02/05/2017 12:00 am UTC Excision of squamous cell carcinoma (pro cedure) 02/05/2017 12:00 am UTC Biopsy of skin (procedure) 02/05/2017 12 :00 am UTC History of appendectomy (situation) 01/24 12:00 am UTC Biopsy of skin (procedure) 01/28/2017 12 :00 am UTC Excision of squamous cell carcinoma (pro cedure) 01/28/2017 12:00 am UTC Percutaneous extraction of k idney stone with fragmentation procedure (procedure) 01/28/2017 12:00 am UTC History of appendectomy (situation) 08/2016 12:00 am UTC Excision of squamous cell carcinoma (pro cedure) 08/27/2016 12:00 am UTC Biopsy of skin (procedure) 08/27/2016 12 :00 am UTC History of appendectomy (situation) 07/2016 12:00 am UTC Percutaneous extraction of k idney stone with fragmentation procedure (procedure) 08/27/2016 12:00 am UTC Excision of squamous cell carcinoma (pro cedure) 01/30/2016 12:00 am UTC History of appendectomy (situation) 09/2015 12:00 am UTC Percutaneous extraction of k idney stone with fragmentation procedure (procedure) 01/30/2016 12:00 am UTC Biopsy of skin (procedure) 01/30/2016 12 :00 am UTC Biopsy of skin (procedure) 12/16/2015 12 :00 am UTC History of appendectomy (situation) 11/25 12:00 am UTC Excision of squamous cell carcinoma (pro cedure) 12/16/2015 12:00 am UTC Percutaneous extraction of k idney stone with fragmentation procedure (procedure) 12/16/2015 12:00 am UTC Biopsy of skin (procedure) 09/03/2015 12 :00 am UTC Excision of squamous cell carcinoma (pro cedure) 09/03/2015 12:00 am UTC Excision of squamous cell carcinoma (pro cedure) 02/14/2015 12:00 am UTC Biopsy of skin (procedure) 02/14/2015 12 :00 am UTC Biopsy of skin (procedure) 09/04/2014 12 :00 am UTC Excision of squamous cell carcinoma (pro cedure) 09/04/2014 12:00 am UTC Biopsy of skin (procedure) 02/15/2014 12 :00 am UTC Excision of squamous cell carcinoma (pro cedure) 02/15/2014 12:00 am UTC Percutaneous extraction of k idney stone with fragmentation procedure (procedure) Percutaneous extraction of k idney stone with fragmentation procedure (procedure) History of appendectomy (situation) Excision of squamous cell carcinoma (pro cedure) Biopsy of skin (procedure) History of appendectomy (situation) Excision of squamous cell carcinoma (pro cedure) Biopsy of skin (procedure) Excision of squamous cell carcinoma (pro cedure) Surgical biopsy of skin (procedure) History of appendectomy (situation) History of appendectomy (situation) Excision of squamous cell carcinoma (pro cedure) Surgical biopsy of skin (procedure) Excision of squamous cell carcinoma (pro cedure) Surgical biopsy of skin (procedure) History of appendectomy (situation) Surgical biopsy of skin (procedure) Excision of squamous cell carcinoma (pro cedure) History of appendectomy (situation) Excision of squamous cell carcinoma (pro cedure) History of appendectomy (situation) Surgical biopsy of skin (procedure) Excision of squamous cell carcinoma (pro cedure) Surgical biopsy of skin (procedure) History of appendectomy (situation) Surgical biopsy of skin (procedure) History of appendectomy (situation) Excision of squamous cell carcinoma (pro cedure) Excision of squamous cell carcinoma (pro cedure) History of appendectomy (situation) Surgical biopsy of skin (procedure) History of appendectomy (situation) Surgical biopsy of skin (procedure) Excision of squamous cell carcinoma (pro cedure) Excision of squamous cell carcinoma (pro cedure) History of appendectomy (situation) Surgical biopsy of skin (procedure) Surgical biopsy of skin (procedure) History of appendectomy (situation) Excision of squamous cell carcinoma (pro cedure) Excision of squamous cell carcinoma (pro cedure) History of appendectomy (situation) Surgical biopsy of skin (procedure) History of appendectomy (situation) Excision of squamous cell carcinoma (pro cedure) Surgical biopsy of skin (procedure) Excision of squamous cell carcinoma (pro cedure) Surgical biopsy of skin (procedure) History of appendectomy (situation) History of appendectomy (situation) Excision of squamous cell carcinoma (pro cedure) Surgical biopsy of skin (procedure) Excision of squamous cell carcinoma (pro cedure) History of appendectomy (situation) Surgical biopsy of skin (procedure) History of appendectomy (situation) Excision of squamous cell carcinoma (pro cedure) Surgical biopsy of skin (procedure) Surgical biopsy of skin (procedure) Excision of squamous cell carcinoma (pro cedure) History of appendectomy (situation) Surgical biopsy of skin (procedure) Excision of squamous cell carcinoma (pro cedure) History of appendectomy (situation) Surgical biopsy of skin (procedure) History of appendectomy (situation) Excision of squamous cell carcinoma (pro cedure) Surgical biopsy of skin (procedure) Excision of squamous cell carcinoma (pro cedure) History of appendectomy (situation) History of appendectomy (situation) Surgical biopsy of skin (procedure) Excision of squamous cell carcinoma (pro cedure) Surgical biopsy of skin (procedure) History of appendectomy (situation) Excision of squamous cell carcinoma (pro cedure) Surgical biopsy of skin (procedure) History of appendectomy (situation) Excision of squamous cell carcinoma (pro cedure) Excision of squamous cell carcinoma (pro cedure) History of appendectomy (situation) Surgical biopsy of skin (procedure) History of appendectomy (situation) Surgical biopsy of skin (procedure) Excision of squamous cell carcinoma (pro cedure) History of appendectomy (situation) Surgical biopsy of skin (procedure) Excision of squamous cell carcinoma (pro cedure) History of appendectomy (situation) Excision of squamous cell carcinoma (pro cedure) Surgical biopsy of skin (procedure) History of appendectomy (situation) Excision of squamous cell carcinoma (pro cedure) Surgical biopsy of skin (procedure) Surgical biopsy of skin (procedure) Excision of squamous cell carcinoma (pro cedure) History of appendectomy (situation) Surgical biopsy of skin (procedure) Excision of squamous cell carcinoma (pro cedure) History of appendectomy (situation) History of appendectomy (situation) Excision of squamous cell carcinoma (pro cedure) Surgical biopsy of skin (procedure) History of appendectomy (situation) Surgical biopsy of skin (procedure) Excision of squamous cell carcinoma (pro cedure) Surgical biopsy of skin (procedure) History of appendectomy (situation) Excision of squamous cell carcinoma (pro cedure) Percutaneous extraction of k idney stone with fragmentation procedure (procedure) Review Of Systems Provider reviewed on Mar 06, 2025.A focused review of systems was performed including Hematologic /Lymphatic and Integumentary and was notable for problems with bleeding or current blood thinner use.No Problems With Healing Or Scar Formation (hypertrophic/keloid). Assessment 1.Well Differentiated Squamous Cell Carcinoma, Status: Inadequately ControlledConsultation for MohsSurgeryLab Reports Reviewed:.2.Well Differentiated Squamous Cell Carcinoma, Status: Inadequately ControlledMohs Surgery: right superior medial malar cheek; Consent Type - Use Body Location To Select Appropriate Consent; Eye Shield Used - No; Surgeon Performing Repair - Yvonne Perdomo MD; Number of Stages - 2; Primary Defect Length in cm (Final Defect Size - Required for Flaps/Grafts) - 1.4; Primary Defect Width in cm (Final Defect Size - Required for Flaps/Grafts) - 1.1; Repair type - Complex Repair; Postop Diagnosis - same. Plan of Care Future visit for 03/13/2025 - Follow up in 7 days for: Suture Removal Future visit for 08/21/2025 - Follow up in 6 months for: Skin Check Code Detail Instructions [id number] Never smoked tobacco [id number] Never smoked tobacco [id number] Never smoked tobacco [id number] Never smoked tobacco [id number] Never smoked tobacco [id number] Cage questionnaire [id number] Never smoked tobacco [id number] Never smoked tobacco [id number] Cage questionnaire 0524879 doxycycline monohydrate 100 mg c apsule Take one po BID for flares 2026668 doxycycline monohydrate 100 mg c apsule Take one po BID for flares 9094199 doxycycline monohydrate 100 mg c apsule Take one po BID for flares 5057239 doxycycline monohydrate 100 mg c apsule Take one po BID for flares 19790531 niacinamide 500 mg tablet Take o ne TID x 30 days 075635 clobetasol 0.05 % scalp solution Mix with CeraVe lotion, apply bid x two weeks off for two weeks then repeat PRN flare 0547289 doxycycline hyclate 100 mg capsu le Take 1 tablet PO BID with full glass of water. 19741125 dexamethasone 4 mg tablet Take 2 Tablets PO BID x 3 days then 1 tablet PO QD x 5 days 9339325 doxycycline hyclate 100 mg capsu le bid 3741300 triamcinolone aceton mana 0.1 % topical ointment Apply once daily to rash x 2 weeks then follow up in clinic. 792612 clobetasol 0.05 % scalp solution Mix entire bottle with new 1 lb tub of CeraVe Apply to rashing/itching areas 2-3 times per day as needed 097473 Efudex 5 % topical cream Apply t o face bid x7-10 days. 569040 Bactroban 2 % topical ointment A pply to excision site bid x 2 weeks Instructions No Data Social History Code Activity Start Date End Date [id number] (SNOMED) Never smoker Sex male Sexual orientation Straight (Heterosexu al) Gender identity Identifies as Male Vital Signs No data
--- NOTE | 2025-04-25 10:46 | DI.CT.S_ITS ---
PROCEDURE: CT CERVICAL SPINE WO CON INDICATIONS: fall TECHNIQUE: Noncontrast 3 mm thick sections acquired from the skull base to the T4 level. Sagittal and coronal reformats were then constructed. For radiation dose reduction, the following was used: automated exposure control, adjustment of mA and/or kV according to patient size. COMPARISON: None. FINDINGS: Image quality: Excellent. Bones: No acute fractures or dislocations. Visualized superior ribs are intact. Multilevel disc space narrowing and degenerative endplate changes. Multilevel uncovertebral joint and facet hypertrophy. Soft tissues: Prevertebral soft tissues are normal in thickness. No paravertebral hematomas. No apical pneumothoraces. IMPRESSION: No acute displaced fracture or traumatic subluxation. Approved by: Flex Willams M.D. on 04/25/2025 at 12:41
--- NOTE | 2025-04-25 10:48 | DI.CT.S_ITS ---
PROCEDURE: CT HEAD/BRAIN WO CON INDICATIONS: fall TECHNIQUE: Noncontrast 4.5 mm thick angled axial sections acquired from the foramen magnum to the vertex, with coronal and sagittal reformats. For radiation dose reduction, the following was used: automated exposure control, adjustment of mA and/or kV according to patient size. COMPARISON: [facility], CT, CT HEAD/BRAIN WO CON, 03/24/2025, 9:41. [facility], CT, CT HEAD/BRAIN WO CON, 06/13/2020, 13:39. FINDINGS: Image quality: Diagnostic. CSF spaces: Basal cisterns are patent. No extra-axial fluid collections. The ventricles are symmetric in size and shape. Brain: No acute intracranial hemorrhage or mass effect. There is cerebral volume loss, with resultant ventricular and sulcal prominence. There are periventricular and deep white matter chronic small vessel ischemic changes. There is intracranial internal carotid artery atherosclerosis. Skull and face: Calvarium and visualized facial bones appear intact, without suspicious lesions. Sinuses: Visualized sinuses and mastoids are clear. IMPRESSION: No acute intracranial pathology. Approved by: Flex Willams M.D. on 04/25/2025 at 12:38
--- NOTE | 2025-04-25 11:57 | DI.RAD.S_ITS ---
PROCEDURE: XR PELVIS 1-2V INDICATIONS: fall TECHNIQUE: Single AP view of the pelvis acquired. COMPARISON: None. FINDINGS: Bones: No acute fractures or dislocations. No suspicious bony lesions. Moderate to severe joint space narrowing in the right hip. Moderate left hip osteoarthrosis. Degenerative changes are seen in the included spine. Soft tissues: Visualized bowel gas pattern is normal. No suspicious soft tissue calcifications. IMPRESSION: No acute osseous abnormality. If symptoms persist or if there is continued clinical concern, cross-sectional imaging such as MRI or CT may be helpful for further evaluation. Approved by: Flex Willams M.D. on 04/25/2025 at 12:52
--- NOTE | 2025-04-25 11:57 | DI.RAD.S_ITS ---
PROCEDURE: XR LUMBAR SPINE 2-3V INDICATIONS: fall TECHNIQUE: 3 views of the lumbar spine were acquired. COMPARISON: [facility], , XR LUMBAR SPINE 2-3V, 06/03/2022, 10:30. FINDINGS: Bones: 5 [id number] vertebrae are present. There is normal bony alignment. Mild superior endplate compression fracture of the L2 vertebral body is new when compared to the prior exam from 06/03/2022. No significant retropulsion of osseous fragments is seen. No suspicious bony lesions. Multilevel disc space narrowing and degenerative endplate changes. Multilevel facet hypertrophy. Soft tissues: Overlying bowel gas pattern is normal. Aortic atherosclerotic calcifications. IMPRESSION: Mild L2 vertebral body compression fracture is new when compared to remote prior exam from 06/03/2022. Recommend correlation for point tenderness. Approved by: Flex Willams M.D. on 04/25/2025 at 12:51
--- NOTE | 2025-04-25 12:07 | ED.BACK ---
HPI - Back Pain/Injury General Chief Complaint: Back Pain/Injury Stated Complaint: fall on back last night Time Seen by Provider: 04/25/25 10:30 Source: patient History of Present Illness HPI Narrative: The patient is an 89 year old man with a history of hypothyroidism, hypertension, and hyperlipidemia, erectile dysfunction, currently taking baby aspirin, who presents with acute back pain. He reports that he was standing on a chair to change a light bulb when the chair slipped, causing him to fall sideways. He struck the left side of his head but denies any loss of consciousness. He presents today due to worsening lower back pain since the fall. He denies chest pain, dyspnea, diaphoresis, presyncope, lightheadedness, nausea, or vomiting prior to or following the event. No other acute complaints reported. He denies any saddle anesthesia, bowel or bladder incontinence, recent surgical spinal instrumentation, no drenching night sweats. Related Data Home Medications ?Medication ?Instructions ?Recorded ?Confirmed aspirin 81 mg tablet 81 mg PO DAILY 04/11/25 Previous Rx's ?Medication ?Instructions ?Recorded sildenafil 100 mg tablet (Viagra) 100 mg PO DAILY PRN sexual 04/27/24 activity #30 tabs losartan 100 mg tablet 100 mg PO DAILY #90 tabs 05/25/24 tamsulosin 0.4 mg capsule 0.4 mg PO BEDTIME #90 caps 06/14/24 mirtazapine 15 mg tablet 15 mg PO BEDTIME #90 tabs 09/25/24 levothyroxine 100 mcg tablet 100 mcg PO DAILY #90 tabs 12/22/24 carvedilol 6.25 mg tablet 6.25 mg PO BID #180 tabs 01/04/25 amlodipine 5 mg tablet 5 mg PO DAILY #90 tabs 02/12/25 meclizine 25 mg tablet 25 mg PO TID #30 tabs 03/24/25 rosuvastatin 20 mg tablet 20 mg PO DAILY #90 tabs 03/29/25 lidocaine 4 % topical patch 1 patch topical DAILY PRN pain #10 04/25/25 ea Allergies Allergy/AdvReac Type Severity Reaction Status Date / Time lisinopril AdvReac Intermediate Cough Verified 04/25/25 10:33 prednisone AdvReac Intermediate ITCHING Uncoded 04/25/25 10:33 Review of Systems Review of Systems ROS Unobtainable: All systems reviewed & are unremarkable except as noted in HPI and below Patient History Medical History Polyneuropathy, unspecified Venous (peripheral) insufficiency BPPV (benign paroxysmal positional vertigo) Allergic rhinitis Depression, 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 Erectile dysfunction Generalized anxiety disorder Acquired hypothyroidism Mixed hyperlipidemia Essential hypertension Alopecia Fractures Measles Kidney stones Diffuse cellulitis of face Atypical chest pain Social History details: (Sendy), 4 sons, retired household members: spouse Smoking Status: Never smoker alcohol intake: current Smoking Status: Never smoker alcohol intake frequency: holidays/special occasions only Exam Narrative Exam Narrative: Vitals:? Afebrile, all other vitals within normal range. Gen:? Well-developed, well-nourished, no acute distress Head: He has got a contusion/ecchymosis at the left temporal region Cards:? Regular, no murmurs, rubs, gallops Pulm:? No increased work of breathing, and expiratory wheezing in upper lobes Abd:? Soft, nondistended, nontender Back: No midline tenderness to palpation in C-, T-spine, no step-offs or crepitus. He has some tenderness to palpation at the L1-2 vertebral spine. He has no paraspinal tenderness to palpation. Ext:? No peripheral edema in bilateral lower extremity Neuro:? A&O x4, cranial nerves grossly intact, 5/5 strength with flexion and extension in the elbows, knees, dorsi and plantar flexion. Sensation intact throughout. Psych:? Appropriate Initial Vital Signs Initial Vital Signs: Vital Signs Temperature 96.1 F L 04/25/25 10:32 Pulse Rate 55 L 04/25/25 10:32 Respiratory Rate 17 04/25/25 10:32 Blood Pressure 106/58 L 04/25/25 10:32 Pulse Oximetry 97 04/25/25 10:32 Oxygen Delivery Method Room Air 04/25/25 10:32 Course Orders Ordered: ED Orders 04/25/25 11:57 XR lumbar spine 2-3V Stat XR pelvis 1-2V Stat Discontinued Medications Ibuprofen (Ibuprofen 400 Mg Tablet) 600 mg PO NOW ONE Stop: 04/25/25 13:10 Last Admin: 04/25/25 13:36 Dose: 600 mg Documented By: JACQUELIN Lidocaine (Lidocaine 5% Patch) 1 each TOP NOW ONE Stop: 04/25/25 13:10 Last Admin: 04/25/25 13:36 Dose: 1 each Documented By: JACQUELIN Vital Signs Vital signs: Vital Signs - 8 hr 04/25/25 13:30 04/25/25 13:31 04/25/25 13:31 Pulse Rate 47 L 47 L Respiratory Rate 17 Blood Pressure 160/72 H Pulse Oximetry 94 93 Oxygen Delivery Method Room Air Room Air 04/25/25 14:18 Pulse Rate 58 L Respiratory Rate 14 Blood Pressure 150/86 H Pulse Oximetry 93 Oxygen Delivery Method Room Air MDM - Back Pain/Injury Imaging Data CT scan - head: Radiologist's Impression: PROCEDURE: CT HEAD/BRAIN WO CON INDICATIONS: fall TECHNIQUE: Noncontrast 4.5 mm thick angled axial sections acquired from the foramen magnum to the vertex, with coronal and sagittal reformats. For radiation dose reduction, the following was used: automated exposure control, adjustment of mA and/or kV according to patient size. COMPARISON: [facility], CT, CT HEAD/BRAIN WO CON, 03/24/2025, 9:41. [facility], CT, CT HEAD/BRAIN WO CON, 06/13/2020, 13:39. FINDINGS: Image quality: Diagnostic. CSF spaces: Basal cisterns are patent. No extra-axial fluid collections. The ventricles are symmetric in size and shape. Brain: No acute intracranial hemorrhage or mass effect. There is cerebral volume loss, with resultant ventricular and sulcal prominence. There are periventricular and deep white matter chronic small vessel ischemic changes. There is intracranial internal carotid artery atherosclerosis. Skull and face: Calvarium and visualized facial bones appear intact, without suspicious lesions. Sinuses: Visualized sinuses and mastoids are clear. IMPRESSION: No acute intracranial pathology. Approved by: Flex Willams M.D. on 04/25/2025 at 12:38 CT - cervical spine: Radiologist's Impression: PROCEDURE: CT CERVICAL SPINE WO CON INDICATIONS: fall TECHNIQUE: Noncontrast 3 mm thick sections acquired from the skull base to the T4 level. Sagittal and coronal reformats were then constructed. For radiation dose reduction, the following was used: automated exposure control, adjustment of mA and/or kV according to patient size. COMPARISON: None. FINDINGS: Image quality: Excellent. Bones: No acute fractures or dislocations. Visualized superior ribs are intact. Multilevel disc space narrowing and degenerative endplate changes. Multilevel uncovertebral joint and facet hypertrophy. Soft tissues: Prevertebral soft tissues are normal in thickness. No paravertebral hematomas. No apical pneumothoraces. IMPRESSION: No acute displaced fracture or traumatic subluxation. Approved by: Flex Willams M.D. on 04/25/2025 at 12:41 Pelvis x-ray: Radiologist's Impression: PROCEDURE: XR PELVIS 1-2V INDICATIONS: fall TECHNIQUE: Single AP view of the pelvis acquired. COMPARISON: None. FINDINGS: Bones: No acute fractures or dislocations. No suspicious bony lesions. Moderate to severe joint space narrowing in the right hip. Moderate left hip osteoarthrosis. Degenerative changes are seen in the included spine. Soft tissues: Visualized bowel gas pattern is normal. No suspicious soft tissue calcifications. IMPRESSION: No acute osseous abnormality. If symptoms persist or if there is continued clinical concern, cross-sectional imaging such as MRI or CT may be helpful for further evaluation. Approved by: Flex Willams M.D. on 04/25/2025 at 12:52 Lumbar x-ray: Radiologist's Impression: PROCEDURE: XR LUMBAR SPINE 2-3V INDICATIONS: fall TECHNIQUE: 3 views of the lumbar spine were acquired. COMPARISON: [facility], , XR LUMBAR SPINE 2-3V, 06/03/2022, 10:30. FINDINGS: Bones: 5 [id number] vertebrae are present. There is normal bony alignment. Mild superior endplate compression fracture of the L2 vertebral body is new when compared to the prior exam from 06/03/2022. No significant retropulsion of osseous fragments is seen. No suspicious bony lesions. Multilevel disc space narrowing and degenerative endplate changes. Multilevel facet hypertrophy. Soft tissues: Overlying bowel gas pattern is normal. Aortic atherosclerotic calcifications. IMPRESSION: Mild L2 vertebral body compression fracture is new when compared to remote prior exam from 06/03/2022. Recommend correlation for point tenderness. Approved by: Flex Willams M.D. on 04/25/2025 at 12:51 MDM Narrative Medical decision making narrative: Patient is an 89-year-old man who presents with acute back pain after fall. EMR Review: History of carotid artery stenosis, however patient states that he was asymptomatic prior to the fall and story is consistent with mechanical fall. Differential diagnosis: Mechanical fall, electrolyte abnormalities, hypoglycemia, fractures, dislocation, muscle strain, muscle sprain, other. Labs: CBC with no leukocytosis, left shift, no anemia, platelets are normal. Coags largely normal. CMP with mildly elevated bicarb at 111, otherwise no other electrolyte abnormalities. CK normal. Troponins normal. BNP normal. Lipase normal. TSH normal. Images: L2 vertebral body compression fracture is new when compared to remote prior exam from 06/03/2022. No other intracranial acute injuries. EKG: None. Consults: [address] Garcia. Given no neurologic deficits, symptomatic management and follow up in 2-4 weeks. ED summary: The patient is an 89 year old man presenting with acute back pain following a mechanical fall. EMR review notes a history of carotid artery stenosis; however, the patient reports no prodromal symptoms, and his description is consistent with a purely mechanical event. The patient remained hemodynamically stable throughout his ED stay. His pain improved with multimodal analgesia, and he demonstrated no neurologic deficits, no bowel or bladder dysfunction, and no red?flag symptoms concerning for cauda equina or spinal cord compression. Imaging confirmed an isolated L2 compression fracture without additional acute traumatic findings. After discussion with Dr. Garcia, the plan is conservative management with analgesia, activity modification, and close outpatient follow?up in 2?4 weeks. The patient was comfortable with this plan and was discharged in stable condition. He was advised to return immediately for worsening back pain, new weakness, numbness, saddle anesthesia, difficulty walking, bowel or bladder incontinence or retention, fever, or any new or concerning symptoms. He was instructed to avoid heavy lifting, bending, or twisting and to use prescribed pain medications as directed. Outpatient follow up was emphasized for monitoring of fracture healing and symptom progression. Discharge Plan Departure Patient Disposition: Home Clinical Impression: Compression fracture of lumbar vertebra, Fall as cause of accidental injury at home as place of occurrence Activity Restrictions/Additional Instructions: You were seen in the emergency department after fall. In the ER: --CT of your head and cervical spine was negative for any acute fractures, dislocations, or other injuries. --x-ray Ciara revealed a L2 compression fracture that was not seen on prior imaging. First Line (Non Operative) Management Pain Control Oral analgesics (acetaminophen, NSAIDs if appropriate). Activity Modification Avoid heavy lifting, bending, twisting. Encourage gentle mobility as tolerated?prolonged bed rest is discouraged. Physical Therapy Begin once acute pain improves. Focus on: Core strengthening Postural training Extension?based exercises (helpful when no spinal stenosis is present) Fall?prevention strategies When to Consider Surgical or Interventional Treatment Surgery is not first line and is reserved for specific situations: Indications for escalation Neurologic deficit Severe, persistent pain despite adequate conservative therapy You have been given a referral to Orthopedics. Please call and arrange a follow up in 2-4 weeks. Thank you for allowing me to be part of your care team. Happy New Year's Kizzy. -- Dr. Tomas Prescriptions: New lidocaine 4 % adhesive patch,medicated 1 patch topical DAILY PRN (Reason: pain) Qty: 10 0RF No Action sildenafil [Viagra] 100 mg tablet 100 mg PO DAILY PRN (Reason: sexual activity) Qty: 30 5RF Rx Instructions: administer 30 minutes to 4 hours before activity losartan 100 mg tablet 100 mg PO DAILY Qty: 90 3RF tamsulosin 0.4 mg capsule 0.4 mg PO BEDTIME Qty: 90 3RF mirtazapine 15 mg tablet 15 mg PO BEDTIME Qty: 90 3RF levothyroxine 100 mcg tablet 100 mcg PO DAILY Qty: 90 1RF carvedilol 6.25 mg tablet 6.25 mg PO BID Qty: 180 3RF Rx Instructions: must administer with a meal/food amlodipine 5 mg tablet 5 mg PO DAILY Qty: 90 2RF aspirin 81 mg tablet 81 mg PO DAILY rosuvastatin 20 mg tablet 20 mg PO DAILY Qty: 90 3RF meclizine 25 mg tablet 25 mg PO TID Qty: 30 0RF Referrals: Julio Scott MD [Primary Care Provider, Internal Medicine] Rita Garcia DO [Physician, Orthopedic Surgery] Stand Alone Forms: Patient Portal/API
[2025-04-25] MEDS: IBUPROFEN 400 MG TABLET 600 MG PO (13:36)
[2025-04-25] MEDS: LIDOCAINE 5% PATCH 1 EACH TOP (13:36)
== END 2025-04-25 14:20 | disposition home or self-care (01) ==
PROVIDERS: Emergency Provider Student in an Organized Health Care Education/Training Program; Family Provider Internal Medicine; PCP Internal Medicine
DX: S32.020A Wedge compression fracture of second lumbar vertebra, initial encounter for closed fracture (principal); I10 Essential (primary) hypertension; W07.XXXA Fall from chair, initial encounter
CPT/HCPCS: 70450; 72100; 72125; 72170; 99283